=== PATIENT | male | born 1980 | race Caucasian/White ===

== ENCOUNTER 2021-03-14 12:12 | Outpatient (REF) | payer OTHER, SELFPAY ==
--- NOTE | ~2021-03-14 | XR_ITS ---
EXAMINATION: XR CHEST CLINICAL INFORMATION: Cough. COMPARISON: None TECHNIQUE: 2 views of the chest were obtained. FINDINGS: No significant abnormality is noted involving the heart, lungs, mediastinum, bony thorax or soft tissues. XR/XR chest 2V IMPRESSION: Unremarkable chest exam.
== END 2021-03-14 12:13 | disposition home or self-care (01) ==
LOC: HO.HMGCX 12:12
PROVIDERS: PCP Internal Medicine; Visit Provider Hospitalist
DX: R05 Cough (principal); Z20.822 Contact with and (suspected) exposure to COVID-19
CPT/HCPCS: 71046; U0003; U0005

== ENCOUNTER 2021-04-30 13:33 | Emergency (ER) | payer OTHER, SELFPAY ==
[2021-04-30 13:41] VITALS: BP 126/76; PULSE 104; RESP 18; TEMP 36.9; O2SAT 96; BMI 45.0
--- NOTE | 2021-04-30 14:28 | ED.GENADULT ---
HPI - General Adult General Chief complaint: General Medical Stated complaint: n/v/d Time Seen by Provider: 04/30/21 13:49 Source: patient Mode of arrival: EMS Limitations: no limitations History of Present Illness HPI narrative: 40-year-old male who was sent to emergency department from a his provider's office for evaluation near syncope, diaphoresis, diarrhea. The patient states that he had a scheduled appointment with his PCP for evaluation of left thumb numbness. He states that he sat in his car for about an hour it was very hot. While he was in the car he felt lightheaded and dizzy. He went into the office and had to use the bathroom. He states that he had diarrhea. He became very sweaty while he was moving his bowels. He states that his lightheadedness and dizziness got worse he felt he was going to pass out. The provider did do an EKG and was concerned about the patient's parents and called an ambulance. The patient was then transported to the emergency department for evaluation. The patient states that he did have breakfast but did not drink much fluid today. He does have a history of diabetes and he states that he has been exercising recently he has been more compliant with diabetic diet. The patient states that over the past 1-2 weeks he has noticed numbness of his left thumb. He denies weakness of the thumb. He denies any numbness of the other fingers of his hand. He denies any repetitive use his hand. He has no numbness of his other extremities. He denies injury. Related Data Home Medications Medication Instructions Recorded Confirmed insulin glargine 100 unit/mL (3 unit SUBCUT 03/14/21 03/14/21 mL) subcutaneous pen Previous Rx's Medication Instructions Recorded pen needle, diabetic 32 gauge x #100 ea 08/20/20 (BD Ultra-Fine Irma Pen Needle) lisinopril 40 mg tablet 40 mg PO DAILY #90 tab 10/16/20 doxycycline hyclate 100 mg tablet 100 mg PO BID #14 tab 03/14/21 prednisone 20 mg tablet 20 mg PO .COMPLEX #18 tab 03/14/21 metformin 1,000 mg tablet 1,000 mg PO BID #180 tab 03/18/21 aspirin 81 mg tablet,delayed 81 mg PO DAILY #90 tab 04/24/21 release Allergies Allergy/AdvReac Type Severity Reaction Status Date / Time No Known Allergies Allergy Verified 03/14/21 11:55 Review of Systems Review of Systems: Yes all other systems are reviewed and are negative [facility] Past Medical History [facility] Narrative: Social history: The patient smokes 3 cigarettes per day x3 years. He denies alcohol use. He denies drug use. Medical History Anxiety Depression Diabetes Hypertension Obesity Polydrug abuse PTSD (post-traumatic stress disorder) Surgical History History of appendectomy Social History Social History Advance Directives: No Advance Directives Information Provided: No Physical Exam Vital Signs: Vital Signs: Last Vital Signs Temp 98.5 F 04/30/21 13:41 Pulse 104 H 04/30/21 13:41 Resp 18 04/30/21 13:41 BP 126/76 04/30/21 13:41 Pulse Ox 96 04/30/21 13:41 Body Mass Index 45.0 Const: General: cooperative and no acute distress Orientation/consciousness: oriented to person and oriented to place Limitations: no limitations HENMT: Head: Yes normal to inspection, Yes normocephalic and Yes atraumatic Ears: external ears normal General nose exam: Normal external nose present Face and sinus: Yes normal facial exam Mouth: Normal oral and palatal mucosa present Throat: Yes posterior oropharynx normal Eyes: General: appearance normal, both eyes and all related structures Pupils: Equal, round and reactive pupils present Neck: Neck: Yes normal visual inspection, Yes no lymphadenopathy, Yes trachea midline and Yes supple Chest: Chest palpation & inspection: normal inspection of the chest and normal palpation of entire chest wall Resp: Effort & Inspection: normal respiratory effort and able to speak in complete sentences Auscultation: clear to auscultation bilaterally Cardio: Rate: regular rate Rhythm: regular rhythm Heart sounds: S1 normal heart sound present, S2 normal heart sound present and no murmurs GI: Inspection: Yes normal to inspection Palpation (GI): Soft to palpation, nontender and no guarding Auscultation: normal bowel sounds : General: Yes no CVA tenderness Back/Spine/Pelvis: Back: no CVA tenderness Skin: General skin exam: no rashes or lesions noted Neuro: General: oriented to person and oriented to place Cranial nerves: Yes CN's II-XII intact bilaterally and Yes Equal, round and reactive pupils present Cognition (Neuro): normal cognition Motor exam (neuro): 5/5 motor strength present throughout Extrem: Other: The patient does have diminished light touch and diminished sensation over the left thumb. He has normal opponents of the thumb and pinky finger with normal strength. He can make an okay sign with good strength. He has no pain with percussion over the carpal tunnel and no changes symptoms with wrist flexion x2 minutes. Psych: Appearance: grossly normal Speech and movement: Normal speech and movement present Affect: normal affect Attitude: cooperative Thought process: Normal thought process present Thought content: Normal thought content present Course Course Course Narrative: 40-year-old male who was brought emergency department by ambulance for evaluation of diaphoresis, diarrhea and near syncope. The patient's physical examination was unremarkable. The patient did have a 12 EKG done at his provider's office. On my review of this EKG the patient had a sinus tachycardia with a rate of 101, the patient has and normal intervals, no ST segment elevation, no ST segment depression, no T-wave abnormalities, no PACs or PVCs. The patient's presentation is consistent with vasovagal syncope triggered by dehydration and defecation secondary to diarrhea. Patient's point of care glucose during transport was normal. The patient's left thumb does appear to be numb with decreased sensation. This is either caused a carpal tunnel syndrome or repetitive motion syndrome. The patient was placed in a thumb spica splint. He is advised to take Tylenol and ibuprofen for discomfort. He will need to follow-up with our hand surgeon and with his PCP for further evaluation. Discharge Plan Discharge Clinical Impression: Vasovagal near syncope, Numbness and tingling of left thumb Patient Disposition: Home, Self-Care Instructions: Syncope (ED) Additional Instructions: Your symptoms of almost passing out at your providers office is consistent with vasovagal near-syncope (almost fainting). This was most likely triggered by you not eating enough food or drinking of fluid today, staying in the hot car and having an episode of diarrhea. You should increase your fluid intake throughout the day and rest. Your left some numbness is either caused by repetitive use of your thumb or carpal tunnel syndrome. Wear the thumb spica splint for 2 weeks. Hopefully, this will improve the numbness. Follow-up with our hand surgeon in 2 weeks for re-evaluation Take ibuprofen 200 mg pills, 3 pills every 6 hours as needed for pain. Take Tylenol (acetaminophen) 500 mg pills, 2 pills every 4 to 6 hours as needed for pain. Follow-up with your doctor in 2 days. Please return to the emergency department if your symptoms get worse or if you develop any symptoms that are concerning to you. Prescriptions: No Action (DME) pen needle, diabetic [BD Ultra-Fine Irma Pen Needle] 32 gauge x 5/32 needle See Rx Instructions .ROUTE .MEDSUPPLY Qty: 100 RF: 4 lisinopril 40 mg tablet 40 mg PO DAILY Qty: 90 RF: 3 metformin 1,000 mg tablet 1,000 mg PO BID Qty: 180 RF: 3 aspirin 81 mg tablet,delayed release (DR/EC) 81 mg PO DAILY Qty: 90 RF: 3 Basaglar KwikPen U-100 Insulin 100 unit/mL (3 mL) insulin pen subcut RF: 0 doxycycline hyclate 100 mg tablet 100 mg PO BID Qty: 14 RF: 0 prednisone 20 mg tablet 20 mg PO .COMPLEX Qty: 18 RF: 0 Referrals: Charlette Che MD [Physician] - 2 weeks (Left thumb numbness)
== END 2021-04-30 15:06 | disposition home or self-care (01) ==
PROVIDERS: Emergency Provider Emergency Medicine Emergency Medical Services; PCP Internal Medicine
DX: R55 Syncope and collapse (principal); R20.0 Anesthesia of skin; I10 Essential (primary) hypertension; E11.9 Type 2 diabetes mellitus without complications; Z79.899 Other long term (current) drug therapy; Z79.82 Long term (current) use of aspirin; Z79.4 Long term (current) use of insulin
CPT/HCPCS: 99283

== ENCOUNTER 2021-10-03 14:02 | Outpatient (REF) | payer OTHER, SELFPAY ==
[2021-10-03 16:36] LABS: Hematocrit 48.8 % (42.0-52.0); Hemoglobin 15.6 g/dl (14.0-18.0); Mean Corpuscular Hemoglobin 28.2 pg (27.0-33.0); Mean Corpuscular Volume 88.1 fL (80.0-98.0); Mean Platelet Volume 12.8 fL (9.4-12.4); Platelet Count 237 X10*3/uL (160-400); Red Blood Count 5.54 X10*6/uL (4.60-5.80); Red Cell Distribution Width 12.3 % (11.0-16.0); White Blood Count 10.3 X10*3/uL (4.8-10.8)
[2021-10-03 16:43] LABS: Estimated Average Glucose 292 mg/dL; Hemoglobin A1c % 11.8 %
[2021-10-03 16:56] LABS: Alanine Aminotransferase 124 U/L (0-40); Albumin Level 4.4 g/dL (3.5-5.0); Alkaline Phosphatase 74 U/L (39-117); Anion Gap 13 (12-20); Aspartate Amino Transferase 55 U/L (5-37); Bilirubin Total 0.4 mg/dL (0.0-1.0); Blood Urea Nitrogen 10 mg/dL (9-16); Calcium 9.5 mg/dL (8.4-10.2); Carbon Dioxide 30 mmol/L (22-29); Chloride 102 mmol/L (96-108); Estimated Glomerular Filt Rate > 60; Glucose Random 279 mg/dL (60-115); Potassium 4.5 mmol/L (3.3-5.1); Sodium 140 mmol/L (135-145); Total Protein 7.2 g/dL (6.5-8.0)
== END 2021-10-03 14:03 | disposition home or self-care (01) ==
LOC: HO.HMGCLDS 14:02
PROVIDERS: PCP Internal Medicine; Visit Provider Internal Medicine
DX: F41.9 Anxiety disorder, unspecified (principal); E11.9 Type 2 diabetes mellitus without complications
CPT/HCPCS: 36415; 80053; 83036; 85027

== ENCOUNTER 2022-12-08 13:54 | Outpatient (REF) | payer OTHER, SELFPAY ==
[2022-12-08 16:25] LABS: MANUAL DIFF FLAG NO
[2022-12-08 16:29] LABS: Basophils Absolute Auto 0.1 X10*3/uL (0.0-0.2); Basophils Percent Auto 0.6 % (0-2); Eosinophils Absolute Auto 0.3 X10*3/uL (0.0-0.4); Eosinophils Percent Auto 2.2 % (0-4); Hemoglobin 16.7 g/dl (14.0-18.0); Imm Gran Abs Auto 0.06 X10*3/uL (0.00-0.03); Imm Gran Pct Auto 0.5 % (0.0-0.4); Lymphocytes Absolute Auto 2.7 X10*3/uL (1.2-4.9); Lymphocytes Percent Auto 21.7 % (20-40); Mean Corpuscular HGB Conc 33.4 g/dl (31.0-36.0); Mean Corpuscular Volume 86.8 fL (80.0-98.0); Mean Platelet Volume 12.5 fL (9.4-12.4); Monocytes Absolute Auto 0.9 X10*3/uL (0.1-1.2); Monocytes Percent Auto 6.9 % (2-11); Neutrophils Absolute Auto 8.4 x10*3/uL (2.0-8.3); Neutrophils Percent Auto 68.1 % (45-73); Platelet Count 281 X10*3/uL (160-400); Red Blood Count 5.76 X10*6/uL (4.60-5.80); Red Cell Distribution Width 13.1 % (11.0-16.0); White Blood Count 12.3 X10*3/uL (4.8-10.8)
[2022-12-08 16:35] LABS: Estimated Average Glucose 131 mg/dL; Hemoglobin A1c % 6.2 %
[2022-12-08 16:53] LABS: Alanine Aminotransferase 35 U/L (0-40); Albumin Level 4.4 g/dL (3.5-5.0); Alkaline Phosphatase 69 U/L (39-117); Anion Gap 13 (12-20); Aspartate Amino Transferase 18 U/L (5-37); Bilirubin Total 0.4 mg/dL (0.0-1.0); Blood Urea Nitrogen 8 mg/dL (9-16); Calcium 9.2 mg/dL (8.4-10.2); Carbon Dioxide 29 mmol/L (22-29); Chloride 104 mmol/L (96-108); Cholesterol 194 mg/dL; Estimated Glomerular Filt Rate > 60; Glucose Fasting 131 mg/dL (60-99); HDL Cholesterol 34 mg/dL; LDL Cholesterol Calculated 95 mg/dl; Potassium 4.7 mmol/L (3.3-5.1); Sodium 141 mmol/L (135-145); Triglycerides 328 mg/dL
== END 2022-12-08 13:55 | disposition home or self-care (01) ==
LOC: HO.HMGCLDS 13:54
PROVIDERS: PCP Internal Medicine; Visit Provider Internal Medicine
DX: E11.9 Type 2 diabetes mellitus without complications (principal); I10 Essential (primary) hypertension
CPT/HCPCS: 36415; 80053; 80061; 83036; 85025

== ENCOUNTER 2023-05-08 04:06 | Emergency (ER) | payer OTHER, SELFPAY ==
[2023-05-08 04:09] VITALS: BP 198/111; PULSE 84; RESP 18; TEMP 36.6; O2SAT 99; BMI 34.4
[2023-05-08 04:35] LABS: Basophils Absolute Auto 0.1 X10*3/uL (0.0-0.2); Basophils Percent Auto 0.7 % (0-2); Eosinophils Absolute Auto 0.6 X10*3/uL (0.0-0.4); Eosinophils Percent Auto 5.7 % (0-4); Hematocrit 45.7 % (42.0-52.0); Hemoglobin 15.2 g/dl (14.0-18.0); Imm Gran Abs Auto 0.05 X10*3/uL (0.00-0.03); Imm Gran Pct Auto 0.5 % (0.0-0.4); Lymphocytes Absolute Auto 2.7 X10*3/uL (1.2-4.9); Lymphocytes Percent Auto 26.4 % (20-40); MANUAL DIFF FLAG NO; Mean Corpuscular HGB Conc 33.3 g/dl (31.0-36.0); Mean Corpuscular Hemoglobin 29.5 pg (27.0-33.0); Mean Corpuscular Volume 88.6 fL (80.0-98.0); Mean Platelet Volume 11.3 fL (9.4-12.4); Monocytes Absolute Auto 0.8 X10*3/uL (0.1-1.2); Monocytes Percent Auto 8.1 % (2-11); Neutrophils Absolute Auto 6.1 x10*3/uL (2.0-8.3); Neutrophils Percent Auto 58.6 % (45-73); Platelet Count 259 X10*3/uL (160-400); Red Blood Count 5.16 X10*6/uL (4.60-5.80); White Blood Count 10.4 X10*3/uL (4.8-10.8)
[2023-05-08 04:50] LABS: Alanine Aminotransferase 17 U/L (0-40); Albumin Level 4.2 g/dL (3.5-5.0); Alkaline Phosphatase 60 U/L (39-117); Anion Gap 14 (12-20); Aspartate Amino Transferase 15 U/L (5-37); Bilirubin Total 0.5 mg/dL (0.0-1.0); Blood Urea Nitrogen 12 mg/dL (9-16); Carbon Dioxide 27 mmol/L (22-29); Chloride 106 mmol/L (96-108); Creatinine Clr Calc Pharmacy 138.3; Estimated Glomerular Filt Rate > 60; Glucose Random 114 mg/dL (60-115); Potassium 4.1 mmol/L (3.3-5.1); Sodium 143 mmol/L (135-145); Total Protein 7.1 g/dL (6.5-8.0)
[2023-05-08 04:51] LABS: Appearance Urine Clear; Color Urine Yellow; Glucose Urine UA Negative (Negative); Leukocyte Esterase Urine Negative (Negative); Nitrite Urine Negative (Negative); Specific Gravity - Urine 1.025 (1.005-1.025); Urine Blood Negative (Negative); Urine Ketones Trace mg/dL (Negative); Urine Protein Trace mg/dL (Neg-Trace)
--- NOTE | 2023-05-08 04:52 | ED_ITS ---
HPI - Psych General Chief Complaint: Psychiatric Symptoms Stated Complaint: Psych eval Time Seen by Provider: 05/08/23 04:50 Source: patient Mode of arrival: EMS Limitations: no limitations History of Present Illness HPI Narrative: Patient has history of PTSD depression diabetes anxiety hypertension been homeless for last few days under lot of stress says that his medication was lost not able to take medication for last few days. Denies any SI or HI asking for his medication to be refilled history of cocaine and marijuana use Related Data Home Medications Medication Instructions Recorded Confirmed aspirin 81 mg tablet,delayed 81 mg PO DAILY 05/08/23 05/08/23 release fluticasone propionate 110 1 puff inhalation BID 05/08/23 05/08/23 mcg/actuation HFA aerosol inhaler (Flovent HFA) gabapentin 100 mg capsule 100 mg PO BID 05/08/23 05/08/23 insulin glargine 100 unit/mL (3 10 unit subcut DAILY 05/08/23 05/08/23 mL) subcutaneous pen (Lantus Solostar U-100 Insulin) lisinopril 40 mg tablet 40 mg PO DAILY 05/08/23 05/08/23 metformin 1,000 mg tablet 1,000 mg PO BID 05/08/23 05/08/23 venlafaxine 75 mg capsule,extended 75 mg PO QPM 05/08/23 05/08/23 release 24 hr Previous Rx's Medication Instructions Recorded albuterol sulfate 90 mcg/actuation 2 puff inhalation Q6H PRN 12/08/22 aerosol inhaler shortness of breath or wheezing #8.5 grams amlodipine 5 mg tablet 5 mg PO DAILY #30 tabs 05/08/23 aspirin 81 mg tablet,delayed 81 mg PO DAILY #30 tabs 05/08/23 release cephalexin 500 mg capsule 500 mg PO QID 10 days #40 caps 05/08/23 doxycycline hyclate 100 mg tablet 100 mg PO BID #20 tabs 05/08/23 gabapentin 300 mg capsule 300 mg PO BID #60 caps 05/08/23 lisinopril 40 mg tablet 40 mg PO DAILY #30 tabs 05/08/23 metformin 1,000 mg tablet 1,000 mg PO BID #60 tabs 05/08/23 venlafaxine 75 mg capsule,extended 75 mg PO QPM #30 caps 05/08/23 release 24 hr Allergies Allergy/AdvReac Type Severity Reaction Status Date / Time No Known Allergies Allergy Verified 12/08/22 13:27 Review of Systems Review of Systems: Yes all other systems are reviewed and are negative [facility] Past Medical History Medical History Anxiety Depression Diabetes Eczema Hypertension Obesity Polydrug abuse PTSD (post-traumatic stress disorder) Surgical History History of appendectomy Family History Family History Father Hypertension Mother No problems noted. Social History Social History Housing: Homeless Patient Tobacco Use Status: Current someday Tobacco user Cigarettes Per Day: 2 e-Cigarette/Vaping Use: Never Used Advance Directives: No Advance Directives Information Provided: No Current occupational status: unemployed Cognitive needs: No Hearing needs: No Vision needs: No Physical Exam Vital Signs: Vital Signs: Last Vital Signs Temp 97.8 F 05/08/23 05:14 Pulse 71 05/08/23 05:14 Resp 18 05/08/23 05:14 BP 147/96 H 05/08/23 05:14 Pulse Ox 97 05/08/23 05:14 O2 Del Method Room Air 05/08/23 05:14 BMI result Body Mass Index 34.4 Appearance: Alert. Oriented X3. No acute distress. And she Eyes: PERRLA, No Nystagmus ENT: Pharynx normal. Oral Mucosa moist superficial abscess of the forehead Neck: Normal inspection. Neck supple. CVS: Normal heart rate and rhythm. Pulses normal. Respiratory: No respiratory distress. Equal air entry bilateral, no w heezing/rales/rhonchi Abdomen: Soft and nontender. Bowel sounds are present, no mass palpable, no CVA tenderness Skin: Skin warm and dry. Normal skin color. Normal skin turgor. Extremities: No lower extremity edema. No calf tenderness Neuro: Oriented X 3. No motor deficit. No sensory deficit.No cerebellar signs , cranial nerves II-XII intact Medical Decision Making Lab Data MDM Lab Attestation statement: I reviewed the patient's lab results. 05/08/23 04:29 05/08/23 04:29 Labs: Lab Results 05/08/23 05/08/23 05/08/23 Range/Units 04:29 04:29 04:29 WBC 10.4 (4.8-10.8) X10*3/uL RBC 5.16 (4.60-5.80) X10*6/uL Hgb 15.2 (14.0-18.0) g/dl Hct 45.7 (42.0-52.0) % MCV 88.6 (80.0-98.0) fL MCH 29.5 (27.0-33.0) pg MCHC 33.3 (31.0-36.0) g/dl RDW 13.0 (11.0-16.0) % Plt Count 259 (160-400) X10*3/uL MPV 11.3 (9.4-12.4) fL Immature Gran % (Auto) 0.5 H (0.0-0.4) % Neut % (Auto) 58.6 (45-73) % Lymph % (Auto) 26.4 (20-40) % [place] % (Auto) 8.1 (2-11) % Eos % (Auto) 5.7 H (0-4) % Baso % (Auto) 0.7 (0-2) % Lymph # (Auto) 2.7 (1.2-4.9) X10*3/uL [place] # (Auto) 0.8 (0.1-1.2) X10*3/uL Eos # (Auto) 0.6 H (0.0-0.4) X10*3/uL Baso # (Auto) 0.1 (0.0-0.2) X10*3/uL Abs Immat Gran (auto) 0.05 H (0.00-0.03) X10*3/uL Absolute Neuts (auto) 6.1 (2.0-8.3) x10*3/uL Absolute Nucleated RBC 0.000 (0.0-0.012) X10*3/uL Nucleated RBC % (auto) 0.0 (0.0-0.2) /100WBC Sodium 143 (135-145) mmol/L Potassium 4.1 (3.3-5.1) mmol/L Chloride 106 (96-108) mmol/L Carbon Dioxide 27 (22-29) mmol/L Anion Gap 14 (12-20) BUN 12 (9-16) mg/dL Creatinine 0.99 (0.5-1.4) mg/dL Estim Creat Clear Calc 138.3 Estimated GFR > 60 Random Glucose 114 (60-115) mg/dL Calcium 9.0 (8.4-10.2) mg/dL Total Bilirubin 0.5 (0.0-1.0) mg/dL AST 15 (5-37) U/L ALT 17 (0-40) U/L Alkaline Phosphatase 60 (39-117) U/L Total Protein 7.1 (6.5-8.0) g/dL Albumin 4.2 (3.5-5.0) g/dL Urine Color Urine Appearance Urine pH (5.0-9.0) Ur Specific [place] (1.005-1.025) Urine Protein (Neg-Trace) mg/dL Urine Glucose (UA) (Negative) mg/dL Urine Ketones (Negative) mg/dL Urine Blood (Negative) Urine Nitrite (Negative) Ur Leukocyte Esterase (Negative) Salicylates (15-30) mg/dL Urine Opiates Screen (Not Detect) Urine Fentanyl Screen (Not Detect) Acetaminophen (<30) mcg/mL Ur Barbiturates Screen (Not Detect) Ur Phencyclidine Scrn (Not Detect) Ur Amphetamines Screen (Not Detect) U Benzodiazepines Scrn (Not Detect) Urine Cocaine Screen (Not Detect) U Marijuana (THC) Screen (Not Detect) Ethyl Alcohol < 10 mg/dL 05/08/23 05/08/23 05/08/23 Range/Units 04:29 04:44 04:44 WBC (4.8-10.8) X10*3/uL RBC (4.60-5.80) X10*6/uL Hgb (14.0-18.0) g/dl Hct (42.0-52.0) % MCV (80.0-98.0) fL MCH (27.0-33.0) pg MCHC (31.0-36.0) g/dl RDW (11.0-16.0) % Plt Count (160-400) X10*3/uL MPV (9.4-12.4) fL Immature Gran % (Auto) (0.0-0.4) % Neut % (Auto) (45-73) % Lymph % (Auto) (20-40) % [place] % (Auto) (2-11) % Eos % (Auto) (0-4) % Baso % (Auto) (0-2) % Lymph # (Auto) (1.2-4.9) X10*3/uL [place] # (Auto) (0.1-1.2) X10*3/uL Eos # (Auto) (0.0-0.4) X10*3/uL Baso # (Auto) (0.0-0.2) X10*3/uL Abs Immat Gran (auto) (0.00-0.03) X10*3/uL Absolute Neuts (auto) (2.0-8.3) x10*3/uL Absolute Nucleated RBC (0.0-0.012) X10*3/uL Nucleated RBC % (auto) (0.0-0.2) /100WBC Sodium (135-145) mmol/L Potassium (3.3-5.1) mmol/L Chloride (96-108) mmol/L Carbon Dioxide (22-29) mmol/L Anion Gap (12-20) BUN (9-16) mg/dL Creatinine (0.5-1.4) mg/dL Estim Creat Clear Calc Estimated GFR Random Glucose (60-115) mg/dL Calcium (8.4-10.2) mg/dL Total Bilirubin (0.0-1.0) mg/dL AST (5-37) U/L ALT (0-40) U/L Alkaline Phosphatase (39-117) U/L Total Protein (6.5-8.0) g/dL Albumin (3.5-5.0) g/dL Urine Color Yellow Urine Appearance Clear Urine pH 6.0 (5.0-9.0) Ur Specific [place] 1.025 (1.005-1.025) Urine Protein Trace (Neg-Trace) mg/dL Urine Glucose (UA) Negative (Negative) mg/dL Urine Ketones Trace (Negative) mg/dL Urine Blood Negative (Negative) Urine Nitrite Negative (Negative) Ur Leukocyte Esterase Negative (Negative) Salicylates < 5.0 L (15-30) mg/dL Urine Opiates Screen Not Detected (Not Detect) Urine Fentanyl Screen Not Detected (Not Detect) Acetaminophen < 17 (<30) mcg/mL Ur Barbiturates Screen Not Detected (Not Detect) Ur Phencyclidine Scrn Not Detected (Not Detect) Ur Amphetamines Screen Not Detected (Not Detect) U Benzodiazepines Scrn Not Detected (Not Detect) Urine Cocaine Screen POSITIVE H (Not Detect) U Marijuana (THC) Screen POSITIVE H (Not Detect) Ethyl Alcohol mg/dL Discharge Plan Discharge Clinical Impression: Chronic posttraumatic stress disorder, Anxiety, Folliculitis Patient Disposition: Home, Self-Care Instructions: Post Traumatic Stress Disorder (ED), Folliculitis (ED), Anxiety (ED) Additional Instructions: Take your medications as prescribed and follow-up with therapist and PCP Prescriptions: New lisinopril 40 mg tablet 40 mg PO DAILY Qty: 30 0RF amlodipine 5 mg tablet 5 mg PO DAILY Qty: 30 0RF metformin 1,000 mg tablet 1,000 mg PO BID Qty: 60 0RF venlafaxine 75 mg capsule,extended release 24hr 75 mg PO QPM Qty: 30 0RF gabapentin 300 mg capsule 300 mg PO BID Qty: 60 0RF aspirin 81 mg tablet,delayed release (DR/EC) 81 mg PO DAILY Qty: 30 0RF cephalexin 500 mg capsule 500 mg PO QID 10 Days Qty: 40 0RF doxycycline hyclate 100 mg tablet 100 mg PO BID Qty: 20 0RF No Action aspirin 81 mg tablet,delayed release (DR/EC) 81 mg PO DAILY metformin 1,000 mg tablet 1,000 mg PO BID gabapentin 100 mg capsule 100 mg PO BID lisinopril 40 mg tablet 40 mg PO DAILY fluticasone propionate [Flovent HFA] 110 mcg/actuation HFA aerosol inhaler 1 puff inhalation BID venlafaxine 75 mg capsule,extended release 24hr 75 mg PO QPM insulin glargine [Lantus Solostar U-100 Insulin] 100 unit/mL (3 mL) insulin pen 10 unit subcut DAILY albuterol sulfate 90 mcg/actuation HFA aerosol inhaler 2 puff inhalation Q6H PRN (Reason: shortness of breath or wheezing) Qty: 8.5 0RF Interventions: Summers-Suicide Risk Severity Scale Last Done: 05/08/23 05:57
[2023-05-08 05:00] LABS: Amphetamine Screen Urine Not Detected (Not Detect); Barbiturates, Urine Not Detected (Not Detect); Benzodiazepines Screen Urine Not Detected (Not Detect); Cannabinoid Screen Urine POSITIVE (Not Detect); Cocaine Screen Urine POSITIVE (Not Detect); Fentanyl, urine Not Detected (Not Detect); Opiate Screen Urine Not Detected (Not Detect); Phencyclidine Screen Urine Not Detected (Not Detect)
[2023-05-08 05:09] LABS: Acetaminophen LAB < 17 mcg/mL (<30); Ethanol < 10 mg/dL; Salicylate < 5.0 mg/dL (15-30)
[2023-05-08 05:14] VITALS: BP 147/96; PULSE 71; RESP 18; TEMP 36.6; O2SAT 97
--- OUTSIDE RECORDS SUMMARY | 2023-05-08 05:30 | XMS_ITS | Continuity of Care Document ---
Author Name Unknown Organization [facility] ter Address [address] [place] [id number]- Care Team Providers Care [employer] Teacher Name Role Phone Tory Vaughan MD Primary Care Physician Encounter [facility] [place] Date(s): 03/23/23 - 03/23/[address] [address]- Discharge Disposition: A-D/C Walkout Attending Physician: Not on Staff, Attending MD Admitting Physician: Not on Staff, Admitting MD Referring Physician: Not on Staff, Referring MD Allergies, Adverse Reactions, Alerts No Known Allergies Problem List Condition Confirmation Course Effective Dates Status Health St atus Informant Obese class I Confirmed Active Vital Signs Most recent to oldest [Reference Range]: 1 2 Height 190 cm (03/23/23 9:36 AM) 190 cm (03/23/23 9:16 AM) Weight 126 kg (03/23/23 9:36 AM) 126 kg (03/23/23 9:16 AM) Oxygen Saturation [94-100 %] 98 % (03/23/23 9:16 AM) 99 % (03/23/23 9:10 AM) Pulse Rate [55-90 bpm] 79 bpm (03/23/23 9:16 AM) 87 bpm (03/23/23 9:10 AM) Body Mass Index [18.5-24.99 kg/m2] 34.9 kg/m2 *>HHI* (03/23/23 9:16 AM) Blood Pressure [90-138/55-84 mm Hg] 164/ 98mm Hg *H* (03/23/23 9:16 AM) Respiratory Rate [16-30 br/min] 18 br/mi n (03/23/23 9:16 AM) Temperature [96.8-100.4 DegF] 97.9 DegF (03/23/23 9:16 AM) Mode of Delivery (Oxygen) Room air (03/23/23 9:16 AM) Room air (03/23/23 9:10 AM) Blood pressure sites Arm, right (03/23/23 9:16 AM) Temperature Route Oral (03/23/23 9:16 AM) Dry Weight 126 kg (03/23/23 9:36 AM) 126 kg (03/23/23 9:16 AM) Weight Obtained Via Patient/family state d (03/23/23 9:16 AM) Dry Weight Obtained Via Patient/family s tated (03/23/23 9:16 AM) Patient Care team information Care Team Personnel Name: Tory Vaughan MD Position: S Physician - Primary Care Member Role: PCP Address: Address: [address] [facility] [place] [address]- Care Team Related Persons Name: SUJIT REID Address: home [address] [place] [address]
--- OUTSIDE RECORDS SUMMARY | 2023-05-08 05:30 | XMS_ITS | Continuity of Care Document ---
Author Name Unknown Organization [facility] Address [address] [place] [id number]- Care Team Providers Care Tile Molder Hand Name Role Phone Tory Vaughan MD Primary Care Physician [phone] Encounter [facility] [place] Date(s): 12/15/22 - 01/14/23 [facility] [address] [place] [id number]- Attending Physician: Admtr, Ar8 Admitting Physician: Admtr, Ar8 Referring Physician: Admtr, Ar8 Allergies, Adverse Reactions, Alerts No Known Allergies Patient Care team information Care Team Personnel Name: Tory Vaughan MD Position: [facility] Physician (General Medicine) Member Role: PCP Address: Address: [address] [facility] [place] [address]- Care Team Related Persons Name: SUJIT REID Address: [address] [place] [address]
--- OUTSIDE RECORDS SUMMARY | 2023-05-08 05:30 | XMS_ITS | Continuity of Care Document ---
Author Name Unknown Organization [facility] Address [address] [place] [id number]- Care Team Providers Care Transfer Specialist Name Role Phone Tory Vaughan MD Primary Care Physician Encounter [facility] [place] [facility] R [id number] Date(s): 12/09/22 - 01/14/23 [facility] [address] [place] [id number] Attending Physician: Destiny Guerrero MD Admitting Physician: Destiny Guerrero MD Referring Physician: Tory Vaughan MD Allergies, Adverse Reactions, Alerts No Known Allergies Patient Care team information Care Team Personnel Name: Tory Vaughan MD Position: [facility] Physician (General Medicine) Member Role: PCP Address: Address: [address] [facility] [place] [address]- Care Team Related Persons Name: SUJIT REID Address: home [address] [place] [address]
[2023-05-08] MEDS: amLODIPine Besylate 5 MG TABLET PO (06:01)
[2023-05-08] MEDS: cephALEXin 500 MG CAPSULE PO (06:01)
[2023-05-08] MEDS: Doxycycline Monohydrate 100 MG CAPSULE PO (06:01)
== END 2023-05-08 06:10 | disposition home or self-care (01) ==
PROVIDERS: Emergency Provider Internal Medicine; PCP Internal Medicine
DX: F43.12 Post-traumatic stress disorder, chronic (principal); F41.9 Anxiety disorder, unspecified; L73.9 Follicular disorder, unspecified; F32.A Depression, unspecified; E11.9 Type 2 diabetes mellitus without complications; I10 Essential (primary) hypertension; F17.210 Nicotine dependence, cigarettes, uncomplicated; F19.10 Other psychoactive substance abuse, uncomplicated; E66.9 Obesity, unspecified; Z68.34 Body mass index [BMI] 34.0-34.9, adult; Z59.00 Homelessness unspecified; Z79.82 Long term (current) use of aspirin; Z79.84 Long term (current) use of oral hypoglycemic drugs; Z79.4 Long term (current) use of insulin
CPT/HCPCS: 36415; 80053; 80143; 80179; 80307; 81003; 85025; 99284

== ENCOUNTER 2023-10-22 08:20 | Emergency (ER) | payer OTHER, SELFPAY ==
--- NOTE | 2023-10-22 | ECG_ITS ---
Test Reason : dyspnea Blood Pressure : / mmHG Vent. Rate : 087 BPM Atrial Rate : 087 BPM P-R Int : 152 ms QRS Dur : 080 ms QT Int : 370 ms P-R-T Axes : 059 044 049 degrees QTc Int : 445 ms Normal sinus rhythm Normal ECG No previous ECGs available Referred By: Generic ED Physician Electronically Signed By:Malik Toth
--- NOTE | ~2023-10-22 | XR_ITS ---
EXAMINATION: XR CHEST CLINICAL INFORMATION: Dyspnea and fever. COMPARISON: 03/14/2021 TECHNIQUE: 2 views of the chest were obtained. FINDINGS: The lungs are well expanded. No focal consolidation. No pleural effusion. Cardiac silhouette is unchanged. XR/XR chest 2V IMPRESSION: No acute abnormality.
[2023-10-22 08:21] VITALS: BP 152/110; PULSE 92; RESP 18; TEMP 37.2; O2SAT 98; BMI 33.0
--- NOTE | 2023-10-22 08:39 | ED.GENADULT ---
HPI - General Adult General Chief complaint: General Medical Stated complaint: diff breathing vomiting Time Seen by Provider: 10/22/23 08:39 History of Present Illness HPI narrative: The patient is a 42-year-old male with a history of type 2 diabetes who says that he is felt short of breath for the last 4-5 days. He also thinks he has had some fevers. He thinks he had a temperature of 101 degrees yesterday. He went to an urgent care yesterday where he described his symptoms. He says he tested negative for viruses and was advised to come to the emergency room. He said he did not want to come to the hospital yesterday but came to the hospital this morning instead. He has also had headaches. He has had some chest discomfort that feels like he has a clamp on his chest. Related Data Home Medications Medication Instructions Recorded Confirmed venlafaxine 75 mg capsule,extended 75 mg PO QPM 05/08/23 05/08/23 release 24 hr Previous Rx's Medication Instructions Recorded albuterol sulfate 90 mcg/actuation 2 puff inhalation Q6H PRN 12/08/22 aerosol inhaler shortness of breath or wheezing #8.5 grams gabapentin 300 mg capsule 300 mg PO BID #60 caps 05/08/23 metformin 1,000 mg tablet 1,000 mg PO BID #60 tabs 05/08/23 aspirin 81 mg tablet,delayed 81 mg PO DAILY #90 tabs 08/03/23 release lisinopril 40 mg tablet 40 mg PO DAILY #90 tabs 08/03/23 Allergies Allergy/AdvReac Type Severity Reaction Status Date / Time amoxicillin AdvReac Unknown Verified 10/22/23 08:25 Review of Systems Review of Systems: Yes all other systems are reviewed and are negative FORMERLY [facility], [facility] Past Medical History Medical History Anxiety Depression Diabetes Eczema Hypertension Obesity Polydrug abuse PTSD (post-traumatic stress disorder) Surgical History History of appendectomy Family History Family History Father Hypertension Mother No problems noted. Social History Social History Housing: Homeless Patient Tobacco Use Status: Current someday Tobacco user Cigarettes Per Day: 2 Smoked in Last 30 Days: Yes e-Cigarette/Vaping Use: Never Used Use of substances other than those prescribed or required for medical reasons: No Advance Directives: No Current occupational status: unemployed Cognitive needs: No Hearing needs: No Vision needs: No Physical Exam ED Vital Signs: Vital Signs - 24 hr 10/22/23 08:21 10/22/23 09:08 Temperature 98.9 F 97.4 F Pulse Rate 92 76 Respiratory Rate 18 12 Blood Pressure 152/110 H 147/85 H Pulse Oximetry 98 96 Oxygen Delivery Method Room Air Room Air BMI result Body Mass Index 33.0 Const Other: The patient is awake and alert. He is mildly disheveled. He is pleasant and cooperative. He does not appear in distress. HENMT Other: Face is symmetrical. The pharynx is normal. Mucous membranes are moist. No intraoral swelling. Eyes Other: Pupils are round equal, conjunctivae are clear, extraocular movements intact.Pupils are round equal, Neck Other: No cervical adenopathy. No JVD. No neck tenderness or swelling. Resp Effort & Inspection: normal respiratory effort Auscultation: clear to auscultation bilaterally Cardio Rate: regular rate Rhythm: regular rhythm Heart sounds: S1 normal heart sound present and S2 normal heart sound present GI Other: Abdomen is soft and nontender Skin Other: Skin is dry and unremarkable. Neuro Other: The patient is awake and alert. He is oriented and appropriate. Speech is clear. Face is symmetrical. Moving extremities normally. Grossly neurologically intact. Extrem Other: No peripheral edema. No calf swelling or tenderness. No calf asymmetry. Medical Decision Making Medical Decision Making [facility] Narrative: The patient is a 42-year-old male who presented complaining of several days of shortness of breath. He reports history of type 2 diabetes for which he takes metformin. He also reports having had a fever yesterday of 101. The patient's evaluation in the emergency room today is fairly unremarkable. He was mildly hypertensive but his vital signs were otherwise unremarkable. His EKG was normal. He has not tachycardic or hypoxic. Labs including a CBC, C-reactive protein, and troponin are unremarkable. The patient left the emergency department before I had a chance to review any of his investigations with him or to make any other decisions about disposition. Apparently he had some appointment he had to keep and could not stay. On the basis of his essentially negative workup I do not think he needs to be called back for any further evaluation. Lab Data 10/22/23 08:34 10/22/23 08:34 Labs: Lab Results 10/22/23 10/22/23 Range/Units 08:34 09:47 WBC 11.0 H (4.8-10.8) X10*3/uL RBC 5.43 (4.60-5.80) X10*6/uL Hgb 16.1 (14.0-18.0) g/dl Hct 47.8 (42.0-52.0) % MCV 88.0 (80.0-98.0) fL MCH 29.7 (27.0-33.0) pg MCHC 33.7 (31.0-36.0) g/dl RDW 12.5 (11.0-16.0) % Plt Count 234 (160-400) X10*3/uL MPV 11.6 (9.4-12.4) fL Immature Gran % (Auto) 0.6 H (0.0-0.4) % Neut % (Auto) 67.4 (45-73) % Lymph % (Auto) 21.4 (20-40) % [place] % (Auto) 7.3 (2-11) % Eos % (Auto) 2.7 (0-4) % Baso % (Auto) 0.6 (0-2) % Lymph # (Auto) 2.4 (1.2-4.9) X10*3/uL [place] # (Auto) 0.8 (0.1-1.2) X10*3/uL Eos # (Auto) 0.3 (0.0-0.4) X10*3/uL Baso # (Auto) 0.1 (0.0-0.2) X10*3/uL Abs Immat Gran (auto) 0.07 H (0.00-0.03) X10*3/uL Absolute Neuts (auto) 7.4 (2.0-8.3) x10*3/uL Absolute Nucleated RBC 0.000 (0.0-0.012) X10*3/uL Nucleated RBC % (auto) 0.0 (0.0-0.2) /100WBC Sodium 142 (135-145) mmol/L Potassium 3.9 (3.3-5.1) mmol/L Chloride 107 (96-108) mmol/L Carbon Dioxide 26 (22-29) mmol/L Anion Gap 13 (12-20) BUN 17 H (9-16) mg/dL Creatinine 0.83 (0.5-1.4) mg/dL Estim Creat Clear Calc 161.6 Estimated GFR > 60 Random Glucose 127 H (60-115) mg/dL Calcium 8.7 (8.4-10.2) mg/dL Magnesium 2.3 (1.6-2.6) mg/dL Total Bilirubin 0.3 (0.0-1.0) mg/dL Direct Bilirubin 0.1 (0.0-0.5) mg/dL AST 18 (5-37) U/L ALT 22 (0-40) U/L Alkaline Phosphatase 57 (39-117) U/L Troponin I High Sens 6.0 (<3.5-35.0) ng/L C-Reactive Protein 0.11 (< or = 0.50) mg/dL Total Protein 6.9 (6.5-8.0) g/dL Albumin 4.0 (3.5-5.0) g/dL Urine Color Yellow Urine Appearance Clear Urine pH 6.0 (5.0-9.0) Ur Specific [place] 1.025 (1.005-1.025) Urine Protein Negative (Neg-Trace) mg/dL Urine Glucose (UA) Negative (Negative) mg/dL Urine Ketones Negative (Negative) mg/dL Urine Blood Negative (Negative) Urine Nitrite Negative (Negative) Ur Leukocyte Esterase Trace H (Negative) Urine RBC 0-2 (0-2) /HPF Urine WBC 0-5 (0-5) /HPF Ur Squamous Epith Cells 0-2 (0-2) /HPF Urine Bacteria None Seen (None Seen) Hyaline Casts 0-2 (0-2) /LPF COVID-19 (FREDERICK) Negative (Negative) COVID-19 Clin Com See Note Influenza Type A (MENA) Negative (Negative) Influenza Type B (MENA) Negative (Negative) Influenza A & B Note See Note Independent Interpretation I performed an independent interpretation of an: EKG Interpretation: EKG at 08:28 shows normal sinus rhythm at 87 beats per minute. It is a normal EKG. Discharge Plan Discharge Clinical Impression: Shortness of breath Patient Disposition: Elopement Prescriptions: No Action aspirin 81 mg tablet,delayed release (DR/EC) 81 mg PO DAILY Qty: 90 1RF lisinopril 40 mg tablet 40 mg PO DAILY Qty: 90 1RF venlafaxine 75 mg capsule,extended release 24hr 75 mg PO QPM metformin 1,000 mg tablet 1,000 mg PO BID Qty: 60 0RF gabapentin 300 mg capsule 300 mg PO BID Qty: 60 0RF albuterol sulfate 90 mcg/actuation HFA aerosol inhaler 2 puff inhalation Q6H PRN (Reason: shortness of breath or wheezing) Qty: 8.5 0RF
[2023-10-22 08:41] LABS: MANUAL DIFF FLAG NO
[2023-10-22 08:48] LABS: Basophils Absolute Auto 0.1 X10*3/uL (0.0-0.2); Basophils Percent Auto 0.6 % (0-2); Eosinophils Absolute Auto 0.3 X10*3/uL (0.0-0.4); Eosinophils Percent Auto 2.7 % (0-4); Hematocrit 47.8 % (42.0-52.0); Hemoglobin 16.1 g/dl (14.0-18.0); Imm Gran Abs Auto 0.07 X10*3/uL (0.00-0.03); Imm Gran Pct Auto 0.6 % (0.0-0.4); Lymphocytes Absolute Auto 2.4 X10*3/uL (1.2-4.9); Lymphocytes Percent Auto 21.4 % (20-40); Mean Corpuscular HGB Conc 33.7 g/dl (31.0-36.0); Mean Corpuscular Hemoglobin 29.7 pg (27.0-33.0); Mean Platelet Volume 11.6 fL (9.4-12.4); Monocytes Absolute Auto 0.8 X10*3/uL (0.1-1.2); Monocytes Percent Auto 7.3 % (2-11); Neutrophils Absolute Auto 7.4 x10*3/uL (2.0-8.3); Neutrophils Percent Auto 67.4 % (45-73); Platelet Count 234 X10*3/uL (160-400); Red Blood Count 5.43 X10*6/uL (4.60-5.80); Red Cell Distribution Width 12.5 % (11.0-16.0)
[2023-10-22 08:56] LABS: Alanine Aminotransferase 22 U/L (0-40); Alkaline Phosphatase 57 U/L (39-117); Anion Gap 13 (12-20); Aspartate Amino Transferase 18 U/L (5-37); Bilirubin Direct 0.1 mg/dL (0.0-0.5); Bilirubin Total 0.3 mg/dL (0.0-1.0); Blood Urea Nitrogen 17 mg/dL (9-16); Calcium 8.7 mg/dL (8.4-10.2); Carbon Dioxide 26 mmol/L (22-29); Chloride 107 mmol/L (96-108); Creatinine Clr Calc Pharmacy 161.6; Estimated Glomerular Filt Rate > 60; Glucose Random 127 mg/dL (60-115); Magnesium 2.3 mg/dL (1.6-2.6); Potassium 3.9 mmol/L (3.3-5.1); Sodium 142 mmol/L (135-145); Total Protein 6.9 g/dL (6.5-8.0)
[2023-10-22 09:06] LABS: IDNOW Serial# 152EDE1D; Influenza A Negative (Negative); Influenza B2 Negative (Negative)
[2023-10-22 09:07] LABS: COVID-19 Test Negative (Negative); IDNOW Serial# 58CA691E
[2023-10-22 09:08] VITALS: BP 147/85; PULSE 76; RESP 12; TEMP 36.3; O2SAT 96
[2023-10-22 09:31] LABS: C Reactive Protein 0.11 mg/dL (< or = 0.50)
[2023-10-22 09:56] LABS: Appearance Urine Clear; Color Urine Yellow; Glucose Urine UA Negative (Negative); Leukocyte Esterase Urine Trace (Negative); Nitrite Urine Negative (Negative); Specific Gravity - Urine 1.025 (1.005-1.025); UMIC TRIGGER UACC YES; Urine Blood Negative (Negative); Urine Ketones Negative (Negative); Urine Protein Negative (Neg-Trace)
[2023-10-22 10:03] LABS: Bacteria Urine None Seen (None Seen); Hyaline Casts Urine 0-2 /LPF (0-2); RBC Urine 0-2 /HPF (0-2); Squamous Epithelial Cell Urine 0-2 /HPF (0-2); WBC Urine 0-5 /HPF (0-5)
--- NOTE | 2023-10-22 10:20 | PC.NURSE ---
PT IS A/O X 4 NO SOB/MARIA DE JESUS NOTED SPEAKS IN FULL SENTENCES. PT STATES THAT HE HAS AND EMERGENCY AT HOME. HE NEEDS TO TAKE HIS FATHER TO THE ER BECAUSE HE IS NOT FEELING WELL. PT WAS SEEN BY PROVIDER EARLIER AND LABS/IMAGINING DONE. PT IS LUCID. PT WAS EDUCATED ON RISK OF LEAVING BEFORE COMPLETING HIS CARE/ASSESSMENT/EVAL/RESULTS. PT WAS ADVISED TO RETURN AT ANYTIME IF HE IS NOT FEELING/ANY BETTER OR IF HE HAS ANY NEW CONCERNS.
== END 2023-10-22 10:25 | disposition left against medical advice (07) ==
PROVIDERS: Emergency Provider Emergency Medicine
DX: R06.02 Shortness of breath (principal); R07.89 Other chest pain; R50.9 Fever, unspecified; R51.9 Headache, unspecified; F17.200 Nicotine dependence, unspecified, uncomplicated; Z11.52 Encounter for screening for COVID-19; Z79.899 Other long term (current) drug therapy
CPT/HCPCS: 71046; 80053; 81001; 82248; 83735; 84484; 85025; 86140; 87502; 87635; 93005; 99283; 99284

== ENCOUNTER → 2023-10-22 08:28 | Outpatient (BNV) | payer OTHER, SELFPAY | PROVIDERS: Emergency Provider Emergency Medicine; Visit Provider Internal Medicine Cardiovascular Disease | DX: R06.00 Dyspnea, unspecified (principal); R11.10 Vomiting, unspecified | CPT/HCPCS: 93010 ==

== ENCOUNTER 2023-10-30 18:56 | Emergency (ER) | payer OTHER, SELFPAY ==
[2023-10-30 19:12] VITALS: BMI 31.2
--- NOTE | 2023-10-30 19:15 | PC.NURSE ---
[facility] reporting abdominal pain, pt arrived to ED jumped off stretcher, getting in staff faces, angry, agitated stating why am i here you can't keep me here in room assessing pt, pt denying SI/HI, denies abdominal pain, refusing treatment, leaving ED at the OK of MD Alejo. Pt ambulatory with a steady gait. Pt refusing vital signs and further treatment.
--- NOTE | 2023-10-30 19:19 | ED_ITS ---
HPI - Nausea/Vomiting/Diarrhea General Chief complaint: Abdominal Pain Stated complaint: not feeling well, paranoid, aggression. Body numb Time Seen by Provider: 10/30/23 19:08 Related Data Home Medications Medication Instructions Recorded Confirmed venlafaxine 75 mg capsule,extended 75 mg PO QPM 05/08/23 05/08/23 release 24 hr Previous Rx's Medication Instructions Recorded albuterol sulfate 90 mcg/actuation 2 puff inhalation Q6H PRN 12/08/22 aerosol inhaler shortness of breath or wheezing #8.5 grams gabapentin 300 mg capsule 300 mg PO BID #60 caps 05/08/23 metformin 1,000 mg tablet 1,000 mg PO BID #60 tabs 05/08/23 aspirin 81 mg tablet,delayed 81 mg PO DAILY #90 tabs 08/03/23 release lisinopril 40 mg tablet 40 mg PO DAILY #90 tabs 08/03/23 Allergies Allergy/AdvReac Type Severity Reaction Status Date / Time amoxicillin AdvReac Unknown Verified 10/22/23 08:25 [facility] Past Medical History Medical History Anxiety Depression Diabetes Eczema Hypertension Obesity Polydrug abuse PTSD (post-traumatic stress disorder) Surgical History History of appendectomy Family History Family History Father Hypertension Mother No problems noted. Social History Social History Housing: Homeless Patient Tobacco Use Status: Current someday Tobacco user Cigarettes Per Day: 2 e-Cigarette/Vaping Use: Never Used Current occupational status: unemployed Cognitive needs: No Hearing needs: No Vision needs: No Physical Exam Vital Signs: Vital Signs: BMI result Body Mass Index 31.2 Discharge Plan Discharge Clinical Impression: Vomiting Patient Disposition: Home, Self-Care Instructions: Acute Nausea and Vomiting (ED) Additional Instructions: You told me that you are not suicidal and that you do not feel like you are going to harm anyone. You told me that you came because you had nausea and vomiting however you do not want me to examine you and you do not want treatment. If you change your mind, examine you and help you with your symptoms Continue taking medications as prescribed by your providers Follow-up with your doctor in 2 days. Please return to the emergency department if your symptoms get worse or if you develop any symptoms that are concerning to you. Prescriptions: No Action aspirin 81 mg tablet,delayed release (DR/EC) 81 mg PO DAILY Qty: 90 1RF lisinopril 40 mg tablet 40 mg PO DAILY Qty: 90 1RF venlafaxine 75 mg capsule,extended release 24hr 75 mg PO QPM metformin 1,000 mg tablet 1,000 mg PO BID Qty: 60 0RF gabapentin 300 mg capsule 300 mg PO BID Qty: 60 0RF albuterol sulfate 90 mcg/actuation HFA aerosol inhaler 2 puff inhalation Q6H PRN (Reason: shortness of breath or wheezing) Qty: 8.5 0RF
== END 2023-10-30 19:28 | disposition home or self-care (01) ==
LOC: HO.ED 19:26
PROVIDERS: Emergency Provider Emergency Medicine Emergency Medical Services
DX: R11.2 Nausea with vomiting, unspecified (principal); F17.210 Nicotine dependence, cigarettes, uncomplicated; Z79.899 Other long term (current) drug therapy
CPT/HCPCS: 99282

== ENCOUNTER 2023-12-10 11:12 | Outpatient (AMB) | payer OTHER, SELFPAY ==
--- NOTE | 2023-12-10 11:30 | A.OFFPC_ITS ---
Vital Signs 12/10/23 11:40 Height 6 ft 3 in Weight 286 lb BMI 35.7 BP 132/80 Blood Pressure Location Lt brachial Position Sitting Pulse 73 Pulse Source Pulse Oximeter Pulse Oximetry (%) 97 Oxygen Delivery Method Room Air Intake Visit Reasons: Annual PE Intake Note: Pt is here today for PE. Allergies amoxicillin Adverse Reaction (Verified 12/10/23 11:41) Unknown Medication List - Last Reconciled 12/10/23 by Tory Vaughan MD albuterol sulfate 90 mcg/actuation 2 puffs inhalation Q6H PRN aspirin 81 mg PO DAILY gabapentin 300 mg PO BID lisinopril 40 mg PO DAILY metformin 1,000 mg PO BID Tobacco use date assessed: 12/10/23 Dental Screening Dental Screen Date: 12/10/23 Did you have a dental visit in the last 12 months?: Yes Did you have a dental problem in the last 6 months where you did not have access to dental care?: No Was dental information given to patient?: Patient has dentist HPI Annual PE HPI Details Pt presents for PE. Pt c/o 5 days of productive cough, fever, body aches, chest congestion. [facility] Medical History (Updated 12/10/23 @ 12:07 by Tory Vaughan MD) Eczema Obesity Hypertension PTSD (post-traumatic stress disorder) Depression Anxiety Polydrug abuse Diabetes Surgical History History of appendectomy Family History Father Hypertension Mother No problems noted. Social History Housing: Homeless Patient Tobacco Use Status: Current someday Tobacco user Cigarettes Per Day: 2 e-Cigarette/Vaping Use: Never Used Current occupational status: unemployed Cognitive needs: No Hearing needs: No Vision needs: No Questionnaire PHQ-9 Over the last 2 weeks, how often have you been bothered by any of the following problems? 01261 - PHQ-9 Billing: Patient declined-do not bill Source: Developed by Drs. Jose G Isidro, Helga Bolanos, Carlin Murillo and colleagues, with an educational codey from [employer]. Thrive Questionnaire Date Thrive assessed: 12/10/23 I am a: Patient What is your living situation today?: I have a place to live, but I am worried about losing it in the future Within the past 12 months, did the food you bought not last and you didn't have the money to get more?: Sometimes True Within the past 12 months, did you worry whether your food would run out before you got money to buy more?: Sometimes True Do you have trouble paying for medicines?: No Do you have trouble getting transportation to medical appointments?: Yes Do you have trouble paying your heating and electricity bill?: No Do you have trouble taking care of your child, family member or friend?: No Do you have trouble with day-to-day activities such as bathing, preparing meals, shopping, managing finances, etc.?: Yes Are you currently unemployed and looking for a job?: Yes Are you interested in more education?: Yes Please select the resources that you would like help with: Transportation, Daily support, Job search/training and Education THRIVE Score: 4 AUDIT C Alcohol Use Questionnaire (AUDIT-C) 1. How often do you have a drink containing alcohol?: Never 3. How often do you have six or more drinks on one occasion?: Never Total Score: 0 VIANNEY-7 AMB Questionnaire VIANNEY-7 Date VIANNEY - 7 assessed: 12/10/23 Feeling nervous, anxious, or on edge: 3 = Nearly every day Not being able to stop or control worryin = Nearly every day Worrying too much about different things: 3 = Nearly every day Trouble relaxin = Nearly every day Being so restless that it is hard to sit still: 3 = Nearly every day Becoming easily annoyed or irritable: 3 = Nearly every day Feeling afraid as if something awful might happen: 3 = Nearly every day Total VIANNEY-7 score (0-4 normal; 5-9 mild; 10-14 moderate; 15-21 severe): 21 Source: Developed by Drs. Jose G Isidro, Helga Bolanos, Carlin Murillo and colleagues, with an educational codey from [employer]. VIANNEY-7 Assessment Billing VIANNEY-7 Assessment Tool: VIANNEY-7 Assessment 82536 Review of Systems Const All systems reviewed & are unremarkable except as noted in HPI and below Reports no additional complaints Eyes Reports no additional complaints ENT Reports no additional complaints Card Reports no additional complaints Resp Reports no additional complaints GI Reports no additional complaints Reports no additional complaints Physical exam (Primary Care) Vital Signs: Last Vital Signs Pulse 73 12/10/23 11:40 BP 132/80 12/10/23 11:40 Pulse Ox 97 12/10/23 11:40 Oxygen Delivery Method Room Air 12/10/23 11:40 BMI result Body Mass Index 35.7 Tobacco/Smoking Status: Tobacco use Status Tobacco use date assessed 12/10/23 12/10/23 11:41 Patient Tobacco Use Status Current someday Tobacco 12/10/23 11:31 e-Cigarette/Vaping Use Never Used 12/10/23 11:31 Thrive Assessment: Date of Thrive Assessment Date Thrive assessed 12/08/22 12/10/23 11:31 Const General: no acute distress HENMT Head: Yes normal to inspection Ears: hearing grossly normal bilaterally Face and sinus: Yes normal facial exam Eyes General: appearance normal, both eyes and all related structures Neck Neck: Yes supple Resp Effort & Inspection: normal respiratory effort Auscultation: wheezes and diminished lung sounds Cardio Rhythm: regular rhythm Heart sounds: S1 normal heart sound present and S2 normal heart sound present GI Inspection: Yes normal to inspection Palpation (GI): Soft to palpation Percussion: Yes normal to percussion Auscultation: normal bowel sounds Extrem General: Yes no clubbing, cyanosis or edema Assessment and Plan Assessment & Plan (1) Hypertension: Code(s): I10 - Essential (primary) hypertension Plan: Continue lisinopril (2) Diabetes: Code(s): E11.9 - Type 2 diabetes mellitus without complications Plan: ADA diet regular physical activity weight loss discussed with the patient continue metformin 2000 mg a day. Patient will have A1c checked today if A1c is less than 5.7 metformin will be decreased to 1000 mg a day. Follow-up in 6 months with a fasting labs before (3) Annual physical exam: Code(s): Z00.00 - Encounter for general adult medical examination without abnormal findings Plan: Well-balanced diet regular physical activity weight loss discussed with the patient (4) Tracheobronchitis: Code(s): J40 - Bronchitis, not specified as acute or chronic Plan: Z-Chris and prednisone 20 mg daily for 5 days of prescribed and supportive care discussed with the patient. Albuterol p.r.n. Orders: Orders Hemoglobin A1c Today E11.9 - Type 2 diabetes mellitus without complications, I10 - Essential (primary) hypertension, J40 - Bronchitis, not specified as acute or chronic, Z00.00 - Encounter for general adult medical examination without abnormal findings Lipid Panel Today E11.9 - Type 2 diabetes mellitus without complications, I10 - Essential (primary) hypertension, J40 - Bronchitis, not specified as acute or chronic, Z00.00 - Encounter for general adult medical examination without abnormal findings Lipid Panel 6 Months E11.9 - Type 2 diabetes mellitus without complications, I10 - Essential (primary) hypertension Comprehensive [place]. Panel Fast Today E11.9 - Type 2 diabetes mellitus without complications, I10 - Essential (primary) hypertension, J40 - Bronchitis, not specified as acute or chronic, Z00.00 - Encounter for general adult medical examination without abnormal findings Microalbumin, Random (w Creat) Today E11.9 - Type 2 diabetes mellitus without complications, I10 - Essential (primary) hypertension, J40 - Bronchitis, not specified as acute or chronic, Z00.00 - Encounter for general adult medical examination without abnormal findings Complete Blood Count Auto Diff Today E11.9 - Type 2 diabetes mellitus without complications, I10 - Essential (primary) hypertension, J40 - Bronchitis, not specified as acute or chronic, Z00.00 - Encounter for general adult medical examination without abnormal findings Comprehensive [place]. Panel Fast 6 Months E11.9 - Type 2 diabetes mellitus without complications, I10 - Essential (primary) hypertension Hemoglobin A1c 6 Months E11.9 - Type 2 diabetes mellitus without complications, I10 - Essential (primary) hypertension Microalbumin, Random (w Creat) 6 Months E11.9 - Type 2 diabetes mellitus without complications, I10 - Essential (primary) hypertension Medications: New azithromycin For 250 mg dose pack: take 500 mg today (day 1), then 250 mg for 4 days (days 2-5) PO 6 tabs 0RF prednisone 20 mg PO DAILY 5 tabs 0RF Refilled albuterol sulfate 90 mcg/actuation 2 puffs inhalation Q6H PRN 8.5 grams 1RF shortness of breath or wheezing Coding Level of Care Code Est Pt Prev Care 40-64y(27865) Diagnoses Hypertension I10 Diabetes E11.9 Annual physical exam Z00.00 Tracheobronchitis J40 Additional Codes VIANNEY-7 Assessment Billing - VIANNEY-7 Assessment Tool: VIANNEY-7 Assessment [id number] ([id number])
[2023-12-10 11:40] VITALS: BP 132/80; PULSE 73; O2SAT 97; BMI 35.7
== END 2023-12-10 12:10 | disposition home or self-care (01) ==
PROVIDERS: PCP Internal Medicine; Visit Provider Internal Medicine
DX: Z00.00 Encounter for general adult medical examination without abnormal findings (principal); I10 Essential (primary) hypertension; E11.9 Type 2 diabetes mellitus without complications; J40 Bronchitis, not specified as acute or chronic
CPT/HCPCS: 99396

== ENCOUNTER 2023-12-10 12:04 | Outpatient (REF) | payer OTHER, SELFPAY ==
[2023-12-10 13:03] LABS: MANUAL DIFF FLAG NO
[2023-12-10 13:34] LABS: Basophils Absolute Auto 0.1 X10*3/uL (0.0-0.2); Basophils Percent Auto 0.7 % (0-2); Eosinophils Absolute Auto 0.2 X10*3/uL (0.0-0.4); Hematocrit 44.5 % (42.0-52.0); Imm Gran Abs Auto 0.03 X10*3/uL (0.00-0.03); Imm Gran Pct Auto 0.3 % (0.0-0.4); Lymphocytes Absolute Auto 2.2 X10*3/uL (1.2-4.9); Lymphocytes Percent Auto 23.8 % (20-40); Mean Corpuscular HGB Conc 33.7 g/dl (31.0-36.0); Mean Corpuscular Hemoglobin 29.1 pg (27.0-33.0); Mean Corpuscular Volume 86.4 fL (80.0-98.0); Monocytes Absolute Auto 0.7 X10*3/uL (0.1-1.2); Monocytes Percent Auto 7.6 % (2-11); Neutrophils Percent Auto 65.6 % (45-73); Platelet Count 237 X10*3/uL (160-400); Red Blood Count 5.15 X10*6/uL (4.60-5.80); Red Cell Distribution Width 13.2 % (11.0-16.0); White Blood Count 9.2 X10*3/uL (4.8-10.8)
[2023-12-10 13:41] LABS: Estimated Average Glucose 111 mg/dL; Hemoglobin A1c % 5.5 % (<6.0)
[2023-12-10 13:46] LABS: Alanine Aminotransferase 32 U/L (0-40); Albumin Level 4.1 g/dL (3.5-5.0); Alkaline Phosphatase 56 U/L (39-117); Anion Gap 13 (12-20); Aspartate Amino Transferase 22 U/L (5-37); Bilirubin Total 0.4 mg/dL (0.0-1.0); Blood Urea Nitrogen 18 mg/dL (9-16); Calcium 8.5 mg/dL (8.4-10.2); Carbon Dioxide 25 mmol/L (22-29); Chloride 107 mmol/L (96-108); Cholesterol 134 mg/dL (<200); Estimated Glomerular Filt Rate > 60; Glucose Fasting 111 mg/dL (60-99); HDL Cholesterol 28 mg/dL (>40); LDL Cholesterol Calculated 78 mg/dL (<100); Sodium 141 mmol/L (135-145); Total Protein 6.8 g/dL (6.5-8.0); Triglycerides 140 mg/dL (<150)
[2023-12-10 14:06] LABS: Creatinine Urine 182.67 mg/dL; Microalbum/Creatinine Ratio Ur 9.3 ug/mg cr (<30)
== END 2023-12-10 12:05 | disposition home or self-care (01) ==
LOC: HO.HMGCLDS 12:04
PROVIDERS: PCP Internal Medicine; Visit Provider Internal Medicine
DX: Z00.00 Encounter for general adult medical examination without abnormal findings (principal); I10 Essential (primary) hypertension; E11.9 Type 2 diabetes mellitus without complications; J40 Bronchitis, not specified as acute or chronic
CPT/HCPCS: 36415; 80053; 80061; 82043; 82570; 83036; 85025

== ENCOUNTER 2023-12-13 04:04 | Emergency (ER) | payer OTHER, SELFPAY ==
--- NOTE | 2023-12-13 | ECG_ITS ---
Test Reason : CHEST PAIN Blood Pressure : / mmHG Vent. Rate : 085 BPM Atrial Rate : 085 BPM P-R Int : 152 ms QRS Dur : 086 ms QT Int : 364 ms P-R-T Axes : 054 031 042 degrees QTc Int : 433 ms Normal sinus rhythm Normal ECG When compared with ECG of 22-OCT-2023 08:28, No significant change was found Referred By: Generic ED Physician Electronically Signed By:VERA TORREZ MD
--- NOTE | ~2023-12-13 | XR_ITS ---
EXAMINATION: XR CHEST CLINICAL INFORMATION: Dyspnea. COMPARISON: 10/22/2023 TECHNIQUE: 2 views of the chest were obtained. FINDINGS: No significant abnormality is noted involving the heart, lungs, mediastinum, bony thorax or soft tissues. XR/XR chest 2V IMPRESSION: Unremarkable examination.
[2023-12-13 04:12] VITALS: BP 164/83; PULSE 87; RESP 20; TEMP 36.7; O2SAT 96; BMI 36.6
[2023-12-13 04:34] LABS: Basophils Absolute Auto 0.1 X10*3/uL (0.0-0.2); Basophils Percent Auto 0.6 % (0-2); Eosinophils Absolute Auto 0.3 X10*3/uL (0.0-0.4); Eosinophils Percent Auto 2.5 % (0-4); Hemoglobin 15.2 g/dl (14.0-18.0); Imm Gran Abs Auto 0.06 X10*3/uL (0.00-0.03); Imm Gran Pct Auto 0.5 % (0.0-0.4); Lymphocytes Absolute Auto 3.2 X10*3/uL (1.2-4.9); Lymphocytes Percent Auto 27.2 % (20-40); MANUAL DIFF FLAG NO; Mean Corpuscular HGB Conc 33.8 g/dl (31.0-36.0); Mean Corpuscular Hemoglobin 29.5 pg (27.0-33.0); Mean Corpuscular Volume 87.2 fL (80.0-98.0); Mean Platelet Volume 11.4 fL (9.4-12.4); Monocytes Percent Auto 8.3 % (2-11); Neutrophils Percent Auto 60.9 % (45-73); Platelet Count 263 X10*3/uL (160-400); Red Blood Count 5.16 X10*6/uL (4.60-5.80); Red Cell Distribution Width 13.2 % (11.0-16.0); White Blood Count 11.6 X10*3/uL (4.8-10.8)
[2023-12-13 04:49] LABS: Alanine Aminotransferase 27 U/L (0-40); Alkaline Phosphatase 57 U/L (39-117); Anion Gap 15 (12-20); Aspartate Amino Transferase 16 U/L (5-37); Bilirubin Total 0.2 mg/dL (0.0-1.0); Blood Urea Nitrogen 13 mg/dL (9-16); Calcium 9.1 mg/dL (8.4-10.2); Carbon Dioxide 28 mmol/L (22-29); Chloride 105 mmol/L (96-108); Creatinine Clr Calc Pharmacy 129.5; Estimated Glomerular Filt Rate > 60; Glucose Random 161 mg/dL (60-115); Potassium 4.1 mmol/L (3.3-5.1); Sodium 144 mmol/L (135-145); Total Protein 6.8 g/dL (6.5-8.0)
[2023-12-13 04:53] LABS: COVID-19 Test Negative (Negative); IDNOW Serial# 08D9AD1C; IDNOW Serial# 152EDE1D; Influenza A Negative (Negative); Influenza B2 Negative (Negative)
[2023-12-13 04:56] LABS: Troponin-I High Sensitivity 11.8 ng/L (<3.5-35.0)
== END 2023-12-13 07:21 | disposition left against medical advice (07) ==
PROVIDERS: Emergency Provider Emergency Medicine; PCP Internal Medicine
DX: J40 Bronchitis, not specified as acute or chronic (principal); Z11.52 Encounter for screening for COVID-19
CPT/HCPCS: 71046; 80053; 84484; 85025; 87502; 87635; 93005; 99283

== ENCOUNTER → 2023-12-13 04:19 | Outpatient (BNV) | payer OTHER, SELFPAY | PROVIDERS: Emergency Provider Emergency Medicine; PCP Internal Medicine; Visit Provider Internal Medicine Cardiovascular Disease | DX: E07.9 Disorder of thyroid, unspecified (principal) | CPT/HCPCS: 93010 ==

== ENCOUNTER 2023-12-14 09:08 | Outpatient (AMB) | payer OTHER, SELFPAY ==
[2023-12-14 11:07] VITALS: BP 150/80; PULSE 76; TEMP 36.1; O2SAT 96; BMI 36.7
--- NOTE | 2023-12-14 11:07 | MHC.OFFWIV ---
Intake Vital Signs 12/14/23 11:07 Height 6 ft 3 in Weight 294 lb BMI 36.7 BP 150/80 H Blood Pressure Location Lt brachial Position Sitting Pulse 76 Pulse Source Pulse Oximeter Temp 97.0 F Temp Source Temporal Artery Scan Pulse Oximetry (%) 96 Oxygen Delivery Method Room Air Intake Visit Reasons: EP Cough, congestion ~ [id number] Intake Note: pt is here today for cough congestion started 12/09 Patient Tobacco Use Status: Current someday Tobacco user Allergies amoxicillin Adverse Reaction (Verified 12/14/23 11:09) Unknown Do you need a note to return to daycare/school/sports/work: No HPI HPI Comments History of Present Illness Details Patient presents to the walk in for 1 week cough, sinus congestion Patient visit with primary care doctor 4 days ago, treated for bronchitis with prednisone Z-Chris and albuterol inhaler but is not feeling any better Patient went to the ER last night had a chest x-ray, EKG and labs but left without being seen due to the weight Denies fever, chest pain, shortness of breath, palpitations, syncope, weakness Denies headache, ear pain, sore throat. [facility] Medical History (Updated 12/14/23 @ 11:46 by Claribel Arnold APRN, [employer]) Eczema Obesity Hypertension PTSD (post-traumatic stress disorder) Depression Anxiety Polydrug abuse Diabetes Surgical History History of appendectomy Family History Father Hypertension Mother No problems noted. Social History Housing: Homeless Patient Tobacco Use Status: Current someday Tobacco user Cigarettes Per Day: 2 e-Cigarette/Vaping Use: Never Used Current occupational status: unemployed Cognitive needs: No Hearing needs: No Vision needs: No Review of Systems Const All systems reviewed & are unremarkable except as noted in HPI and below Physical Exam Vital Signs: Last Vital Signs Temp 97.0 F 12/14/23 11:07 Pulse 76 12/14/23 11:07 BP 150/80 H 12/14/23 11:07 Pulse Ox 96 12/14/23 11:07 Oxygen Delivery Method Room Air 12/14/23 11:07 BMI result Body Mass Index 36.7 General: awake, alert, oriented. Answers questions appropriately. Fully engaged in examination. Skin: warm, dry, intact HEENT: TMs intact bilaterally, no redness. Posterior pharynx without erythema or exudate. Sclera without icterus or injection. Cardiac: External chest normal in appearance. Respiratory: +cough. LSCTAB. + nasal congestion Abdomen: without gross distension. Neurological: Oriented to person, place, time and situation. Thought process intact. Psychiatric: Appropriate mood and affect. Good judgment and insight. Results Reviewed Results Reviewed: 12/13/2023 CXR: unremarkable Assessment & Plan Assessment & Plan (1) URI (upper respiratory infection): Code(s): J06.9 - Acute upper respiratory infection, unspecified Plan URI, no abx warranted. Reassurance provided, patient advised symptoms most consistent with viral upper respiratory infection. Continue with albuterol inhaler as prescribed by PCP Benzonatate 100mg po bid as needed Rest, drink plenty of fluids, tylenol or motrin as needed. Recommend taking OTC nasal decongestants Follow up with pcp or in clinic for any new or worsening symptoms. Go to ER for shortness of breath, chest pain, palpitations, weakness, dizziness. Medications: New benzonatate 100 mg PO BID PRN 20 caps 0RF cough Coding Level of Care Code Est Pt Level 3 (71399) Diagnoses URI (upper respiratory infection) J06.9
== END 2023-12-14 12:34 | disposition home or self-care (01) ==
PROVIDERS: PCP Internal Medicine; Visit Provider Registered Nurse Emergency
DX: J06.9 Acute upper respiratory infection, unspecified (principal)
CPT/HCPCS: 99213

== ENCOUNTER 2024-03-23 08:52 | Emergency (ER) | payer OTHER, SELFPAY ==
--- NOTE | 2024-03-23 | ECG_ITS ---
Test Reason : CHEST PAINS Blood Pressure : / mmHG Vent. Rate : 075 BPM Atrial Rate : 075 BPM P-R Int : 156 ms QRS Dur : 078 ms QT Int : 394 ms P-R-T Axes : 042 028 035 degrees QTc Int : 439 ms Normal sinus rhythm Normal ECG When compared with ECG of 13-DEC-2023 04:19, No significant change was found Referred By: Generic ED Physician Electronically Signed By:VERA TORREZ MD
--- NOTE | ~2024-03-23 | XR_ITS ---
EXAMINATION: XR CHEST CLINICAL INFORMATION: Dyspnea COMPARISON: November 1723 TECHNIQUE: Frontal view of the chest was obtained. FINDINGS: No significant abnormality is noted involving the heart, lungs, mediastinum, bony thorax or soft tissues. XR/XR chest 1V IMPRESSION: Unremarkable examination.
[2024-03-23 08:55] VITALS: BP 151/93; PULSE 80; O2SAT 99
[2024-03-23 09:02] VITALS: BP 136/86; PULSE 78; RESP 20; TEMP 36.8; O2SAT 94; BMI 36.6
--- NOTE | 2024-03-23 09:31 | ED.CHESTPAIN ---
HPI - Chest Pain General Chief Complaint: Chest Pain Stated Complaint: CP Time Seen by Provider: 03/23/24 09:11 Source: patient and RN notes reviewed Mode of arrival: ambulatory Limitations: no limitations History of Present Illness ED Provider: Rosy Corbett PA-C HPI narrative: This is a 43-year-old male, with a history of diabetes, hypertension, and asthma, who presents emergency department via EMS, with complaints of acute onset chest pressure and shortness of breath. Patient states that he was walking out to his car when he suddenly developed a squeezing like sensation in his chest. This sensation has been constant since its onset. Patient also states some numbness and tingling down his left arm. Patient denies any cardiac history. He states that his family, including uncles, and father, has had cardiac events and their 40s. He states that he has had similar episodes in the past, however states that he would have ambulance come to his house and he would declined transportation and was not over medically evaluated for this. He has never been seen by a bilingual medical receptionist. He denies any fevers, chills, recent illness, cough, recent travel, surgeries, hospitalizations or surgeries. In route he received aspirin and nitroglycerin which provided him with no relief. No other complaints or concerns at this time. MD complaint: chest pain Related Data Previous Rx's ?Medication ?Instructions ?Recorded gabapentin 300 mg capsule 300 mg PO BID #60 caps 05/08/23 metformin 1,000 mg tablet 1,000 mg PO BID #60 tabs 05/08/23 aspirin 81 mg tablet,delayed 81 mg PO DAILY #90 tabs 08/03/23 release albuterol sulfate 90 mcg/actuation 2 puff inhalation Q6H PRN 12/10/23 aerosol inhaler shortness of breath or wheezing #8.5 grams benzonatate 100 mg capsule 100 mg PO BID PRN cough #20 caps 12/14/23 lisinopril 40 mg tablet 40 mg PO DAILY #90 tabs 02/18/24 Allergies Allergy/AdvReac Type Severity Reaction Status Date / Time amoxicillin AdvReac Unknown Verified 03/23/24 09:03 Review of Systems Review of Systems: Yes all other systems are reviewed and are negative [facility] Past Medical History Medical History (Updated 03/23/24 @ 14:03 by JANEY Correa) Eczema Obesity Hypertension PTSD (post-traumatic stress disorder) Depression Anxiety Polydrug abuse Diabetes Surgical History History of appendectomy Family History Family History Father Hypertension Mother No problems noted. Social History Social History Housing: Homeless Alcohol intake: current Alcohol intake frequency: 0-2 drinks per day Patient Tobacco Use Status: Current someday Tobacco user Cigarettes Per Day: 2 Smoked in Last 30 Days: Yes e-Cigarette/Vaping Use: Never Used Use of substances other than those prescribed or required for medical reasons: No Advance Directives: No Do you have a plan to hurt others: No Plan Current occupational status: unemployed Cognitive needs: No Hearing needs: No Vision needs: No Physical Exam Vital Signs: Vital Signs: Last Vital Signs Temp 97.8 F 03/23/24 12:33 Pulse 71 03/23/24 12:33 Resp 16 03/23/24 12:33 BP 160/93 H 03/23/24 12:33 Pulse Ox 98 03/23/24 12:33 O2 Del Method Room Air 03/23/24 12:33 BMI result Body Mass Index 36.6 Course Reevaluation(s) Reevaluation #1: Patient re-evaluated, no relief with nitroglycerin times 3, he remained stable, repeat EKG normal sinus rhythm no ST elevation or depression, better capture with 2nd EKG. Given he has had burning sensation in his abdomen and chest, will treat with viscous lidocaine, Maalox, and elix. Time: 10:15 Reevaluation #2: Patient re-evaluated, still having which spasm like sensation in his chest, repeat troponin pending, will repeat at 1:00 pm Time: 12:00 Reevaluation #3: Patient re-evaluated, still having persistent spasm like sensation in his chest. Will order morphine, and 2nd troponin pending at this time. Will continue to closely monitor. Time: 12:50 Additional Reevaluation(s): 03/23/2024 - 1340 - Went to re-evaluate patient after receiving IV morphine and second troponin was flat. Pt left the ER without completing treatment. To my knowledge, pt still has IV in arm, discussed with nurse, who searched room and ED, also confirmed by security cameras that patient did infact leave the ER. Nurse called police as well as partner did return to emergency room looking for patient and was told that he had eloped. She states that she will go out to the community to try to find patient. Patient's heart score is a 3 03/23/2024 - 1500 - patient had return to the emergency department. Patient states that he had to leave as he had worsening anxiety and just had to get out of the building. He states that he has a history of similar symptoms in the past where he will just leave medical appointments as he feels as though he can no longer stay. He did leave with the IV in his arm however he adamantly denies using any drugs through this IV. States that he is more anxious now that he has back in the emergency room, states that the chest pain is unchanged. I discussed at length his workup today. He had a negative troponin x2. IV was removed from his arm. I reviewed case with my attending physician, Dr. Platt who also saw and assessed patient. There was a discussion on whether not patient would benefit from hospital admission or can follow-up outpatient. Given that patient's workup today was reassuring he has a heart score of 3, unlikely cardiac in nature. It appears as though patient's symptoms are likely psychiatric/anxiety like in nature. Patient discusses long standing history of anxiety, states that he has episodes where he will just leave medical appointments due to anxiety. I discussed strict return precautions with patient. He will follow-up with his primary care physician, he was also given resources from the care team for outpatient services to help with psychiatric difficulties. He has no SI or HI. He is otherwise feeling okay. He understands and agrees with plan. Patient stable for discharge. Medications Administered Discontinued Medications Generic Name Dose Route Start Last Admin Trade Name Freq PRN Reason Stop Dose Admin Al Hydroxide/Mg Hydroxide 30 ml 03/23/24 10:17 03/23/24 10:26 Magnesium Hydrox/Alum Hydrox 30 Ml Oral.Susp PO 03/23/24 10:18 30 ml ONCE ONE Administration Belladonna Alkaloids/Phenobarbital 10 ml 03/23/24 10:17 03/23/24 10:27 Phenobarb/Hyoscy/Atropine/Scop 10 Ml Elixir PO 03/23/24 10:18 10 ml ONCE ONE Administration Lidocaine HCl 15 ml 03/23/24 10:17 03/23/24 10:26 Lidocaine Hcl Viscous 2 % 15 Ml Solution MUCOUS MEM 03/23/24 10:18 15 ml ONCE ONE Administration Morphine Sulfate 4 mg 03/23/24 12:55 03/23/24 12:59 Morphine Sulfate 4 Mg/Ml Cartridge IVPUSH 03/23/24 12:56 4 mg ONCE ONE Administration Protocol Nitroglycerin 0.4 mg 03/23/24 09:33 03/23/24 10:06 Nitroglycerin 0.4 Mg Tab.Subl SUBLINGUAL 0.4 1000units [id number] PRN Administration Chest Pain Medical Decision Making Medical Decision Making [facility] Narrative: This is a 43-year-old male, with a history of hypertension, anxiety, PTSD, and diabetes, who presents emergency department with complaints of episodic chest pain which occurred 1 hour prior to arrival. He was walking and suddenly developed a squeezing like sensation in the middle of his chest. He endorses some numbness and tingling down his left arm. He states that the pain has been constant. EN route he was given nitro, as well as aspirin which provided him without any relief. On initial assessment, patient appears to be uncomfortable secondary to pain. He also appears to be anxious. Patient states that he also felt lightheaded during this episode. He denies any shortness of breath. Vital signs initially within normal limits. He has not hypoxic. He denies any recent travel, surgeries, hospitalizations, history of blood clots or history of cancer. He denies any drug use. Differential diagnoses include ACS, spontaneous pneumothorax, anxiety, panic disorder. 09:31AM - presented case to my attending physician, Dr. Platt, as this sounds cardiac in nature, who advises starting with 2nd course of nitroglycerin to see if this has any relief as presentation is concerning for cardiac event. Differential Diagnosis Differential Diagnoses: The differential diagnosis associated with the presentation includes See above Admission/Observation Consideration of admission/observation: Escalation of care including admission/observation considered Escalation of care including admission/observation considered however given workup today not warranted at this time. Lab Data [facility] Lab Attestation statement: I reviewed the patient's lab results. No leukocytosis, stable H&H, chemistry within normal limits. Troponin x2 negative. BNP 23, viral swabs negative. 03/23/24 09:37 03/23/24 09:37 Labs: Lab Results 03/23/24 03/23/24 03/23/24 Range/Units 09:37 09:52 12:59 WBC 9.6 (4.8-10.8) X10*3/uL RBC 5.02 (4.60-5.80) X10*6/uL Hgb 15.2 (14.0-18.0) g/dl Hct 43.3 (42.0-52.0) % MCV 86.3 (80.0-98.0) fL MCH 30.3 (27.0-33.0) pg MCHC 35.1 (31.0-36.0) g/dl RDW 12.9 (11.0-16.0) % Plt Count 239 (160-400) X10*3/uL MPV 11.2 (9.4-12.4) fL Immature Gran % (Auto) 0.3 (0.0-0.4) % Neut % (Auto) 68.7 (45-73) % Lymph % (Auto) 19.4 L (20-40) % [place] % (Auto) 7.9 (2-11) % Eos % (Auto) 3.0 (0-4) % Baso % (Auto) 0.7 (0-2) % Lymph # (Auto) 1.9 (1.2-4.9) X10*3/uL [place] # (Auto) 0.8 (0.1-1.2) X10*3/uL Eos # (Auto) 0.3 (0.0-0.4) X10*3/uL Baso # (Auto) 0.1 (0.0-0.2) X10*3/uL Abs Immat Gran (auto) 0.03 (0.00-0.03) X10*3/uL Absolute Neuts (auto) 6.6 (2.0-8.3) x10*3/uL Absolute Nucleated RBC 0.000 (0.0-0.012) X10*3/uL Nucleated RBC % (auto) 0.0 (0.0-0.2) /100WBC Sodium 140 (135-145) mmol/L Potassium 3.9 (3.3-5.1) mmol/L Chloride 109 H (96-108) mmol/L Carbon Dioxide 25 (22-29) mmol/L Anion Gap 10 L (12-20) BUN 12 (9-16) mg/dL Creatinine 0.82 (0.5-1.4) mg/dL Estim Creat Clear Calc 170.5 Estimated GFR > 60 Random Glucose 126 H (60-115) mg/dL Calcium 8.4 D (8.4-10.2) mg/dL Magnesium 2.1 (1.6-2.6) mg/dL Total Bilirubin 0.7 (0.0-1.0) mg/dL Direct Bilirubin 0.2 (0.0-0.5) mg/dL AST 17 (5-37) U/L ALT 20 (0-40) U/L Alkaline Phosphatase 60 (39-117) U/L Troponin I High Sens 11.1 11.6 (<3.5-35.0) ng/L B-Natriuretic Peptide 23 (<100) pg/mL Total Protein 6.5 (6.5-8.0) g/dL Albumin 3.9 (3.5-5.0) g/dL Lipase 54 (8-78) U/L Influenza Type A (PCR) NEGATIVE (Negative) Influenza Type B (PCR) NEGATIVE (Negative) RSV RNA Qual (PCR) NEGATIVE (Negative) SARS-CoV-2 RNA (RT-PCR) NEGATIVE (Negative) Independent Interpretation I performed an independent interpretation of an: EKG Interpretation: EKG #1 - 10:27AM - normal sinus rhythm at a ventricular rate of 75 beats per minute, no ST elevation or depression. Normal DE interval. EKG #2 09:10AM - normal sinus rhythm at a ventricular rate of 70 beats per minute, no ST elevation or depression. Radiology Impression Discussion of test interpretation with radiology: I have reviewed the radiologist's reading. Radiologist Impression: XR/XR chest 1V IMPRESSION: Unremarkable examination. Dictated By: Jo Griffin MD Chronic Conditions Patient?s care impacted by: Diabetes Scores Heart Score History: -2- highly suspicious ECG: -0- normal Age: -0- < or = 45 Risk factory: -1- 1 or 2 risk factors Troponin: -0- < or = normal limit Score: 3 Risk: 1.7% Discharge Plan Discharge Clinical Impression: Chest pain Patient Disposition: Elopement Instructions: Chest Pain (ED), Chest Wall Pain (ED), Panic Attack (ED) Additional Instructions: You were seen in the emergency department due to chest pain. Your workup today was reassuring. You need to follow-up with your primary care physician, call today to make an appointment. You can also follow-up with the care team resources provided to you through the booklet. If any new or worsening symptoms occur including but not limited to chest pain, shortness of breath, worsening symptoms, please return to the emergency department for further evaluation. Prescriptions: No Action aspirin 81 mg tablet,delayed release (DR/EC) 81 mg PO DAILY Qty: 90 1RF lisinopril 40 mg tablet 40 mg PO DAILY Qty: 90 1RF metformin 1,000 mg tablet 1,000 mg PO BID Qty: 60 0RF gabapentin 300 mg capsule 300 mg PO BID Qty: 60 0RF albuterol sulfate 90 mcg/actuation HFA aerosol inhaler 2 puff inhalation Q6H PRN (Reason: shortness of breath or wheezing) Qty: 8.5 1RF benzonatate 100 mg capsule 100 mg PO BID PRN (Reason: cough) Qty: 20 0RF Referrals: [facility] [Physician] - Discharge Date/Time: 03/23/24 13:25 Print Language: Persian
[2024-03-23 09:45] LABS: MANUAL DIFF FLAG NO
[2024-03-23 09:46] LABS: Basophils Absolute Auto 0.1 X10*3/uL (0.0-0.2); Basophils Percent Auto 0.7 % (0-2); Eosinophils Absolute Auto 0.3 X10*3/uL (0.0-0.4); Hematocrit 43.3 % (42.0-52.0); Hemoglobin 15.2 g/dl (14.0-18.0); Imm Gran Abs Auto 0.03 X10*3/uL (0.00-0.03); Imm Gran Pct Auto 0.3 % (0.0-0.4); Lymphocytes Absolute Auto 1.9 X10*3/uL (1.2-4.9); Lymphocytes Percent Auto 19.4 % (20-40); Mean Corpuscular HGB Conc 35.1 g/dl (31.0-36.0); Mean Corpuscular Hemoglobin 30.3 pg (27.0-33.0); Mean Corpuscular Volume 86.3 fL (80.0-98.0); Mean Platelet Volume 11.2 fL (9.4-12.4); Monocytes Absolute Auto 0.8 X10*3/uL (0.1-1.2); Monocytes Percent Auto 7.9 % (2-11); Neutrophils Absolute Auto 6.6 x10*3/uL (2.0-8.3); Neutrophils Percent Auto 68.7 % (45-73); Platelet Count 239 X10*3/uL (160-400); Red Blood Count 5.02 X10*6/uL (4.60-5.80); Red Cell Distribution Width 12.9 % (11.0-16.0); White Blood Count 9.6 X10*3/uL (4.8-10.8)
[2024-03-23 09:52] VITALS: BP 148/91; PULSE 74
[2024-03-23] MEDS: Nitroglycerin 0.4 MG TAB.SUBL SUBLINGUAL ×2 (09:52→10:06)
[2024-03-23 10:00] LABS: Alanine Aminotransferase 20 U/L (0-40); Albumin Level 3.9 g/dL (3.5-5.0); Alkaline Phosphatase 60 U/L (39-117); Anion Gap 10 (12-20); Aspartate Amino Transferase 17 U/L (5-37); Bilirubin Direct 0.2 mg/dL (0.0-0.5); Bilirubin Total 0.7 mg/dL (0.0-1.0); Blood Urea Nitrogen 12 mg/dL (9-16); Calcium 8.4 mg/dL (8.4-10.2); Carbon Dioxide 25 mmol/L (22-29); Chloride 109 mmol/L (96-108); Creatinine Clr Calc Pharmacy 170.5; Estimated Glomerular Filt Rate > 60; Glucose Random 126 mg/dL (60-115); Lipase 54 U/L (8-78); Magnesium 2.1 mg/dL (1.6-2.6); Potassium 3.9 mmol/L (3.3-5.1); Sodium 140 mmol/L (135-145); Total Protein 6.5 g/dL (6.5-8.0)
--- NOTE | 2024-03-23 10:00 | PC.NURSE ---
awake and alert. room air, resp even and unlabored. speaking in full clear sentences. reporting 8/10 chest pressure, given nitro SL per orders. abd soft. skin wcd. family at bedside at this time. IV established, blood work sent per orders. VSS.
[2024-03-23 10:06] VITALS: BP 140/81; PULSE 71
[2024-03-23 10:07] LABS: Troponin-I High Sensitivity 11.1 ng/L (<3.5-35.0)
[2024-03-23 10:17] LABS: B Type Natriuretic Peptide 23 pg/mL (<100)
--- NOTE | 2024-03-23 10:17 | ECG_ITS ---
Test Reason : CHEST PAIN Blood Pressure : / mmHG Vent. Rate : 070 BPM Atrial Rate : 070 BPM P-R Int : 158 ms QRS Dur : 080 ms QT Int : 414 ms P-R-T Axes : 019 028 051 degrees QTc Int : 447 ms Normal sinus rhythm Normal ECG When compared with ECG of 23-MAR-2024 09:10, No significant change was found Referred By: Rosy Corbett Electronically Signed By:VERA TORREZ MD
[2024-03-23 10:24] LABS: Influenza A PCR NEGATIVE (Negative); Influenza B PCR NEGATIVE (Negative); Resp Syncy Virus RNA Qual PCR NEGATIVE (Negative); SARS COV2 PCR INHOUSE NEGATIVE (Negative)
[2024-03-23] MEDS: Lidocaine HCl Viscous 2 % 15 ML SOLUTION MUCOUS MEM (10:26)
[2024-03-23] MEDS: Magnesium Hydrox/Alum Hydrox 30 ML ORAL.SUSP PO (10:26)
[2024-03-23] MEDS: PHENobarb/Hyoscy/Atropine/Scop 10 ML ELIXIR PO (10:27)
[2024-03-23 12:33] VITALS: BP 160/93; PULSE 71; RESP 16; TEMP 36.6; O2SAT 98
[2024-03-23] MEDS: Morphine Sulfate 4 MG/ML CARTRIDGE IVPUSH (12:59)
[2024-03-23 13:27] LABS: Troponin-I High Sensitivity 11.6 ng/L (<3.5-35.0)
--- NOTE | 2024-03-23 13:54 | PC.NURSE ---
pt missing from room with gown on bed. This RN and provider searched through department and bathrooms for pt. Security consulted and confirmed that pt left at [address] with IV still in place[address] [place] police contacted to conduct well being check to bring pt bck for IV removal. air hose coupler and provider aware.
== END 2024-03-23 13:25 | disposition left against medical advice (07) ==
LOC: HO.ED 09:41
PROVIDERS: Physician Assistant Medical; Emergency Provider Emergency Medicine; PCP Internal Medicine
DX: R07.9 Chest pain, unspecified (principal); R06.02 Shortness of breath; I10 Essential (primary) hypertension; E11.9 Type 2 diabetes mellitus without complications; J45.909 Unspecified asthma, uncomplicated; Z03.818 Encounter for observation for suspected exposure to other biological agents ruled out
CPT/HCPCS: 0241U; 36415; 71045; 80048; 80076; 83690; 83735; 83880; 84484; 85025; 93005; 96374; 99284; J2270

== ENCOUNTER → 2024-03-23 09:10 | Outpatient (BNV) | payer OTHER, SELFPAY | PROVIDERS: Emergency Provider Emergency Medicine; PCP Internal Medicine; Visit Provider Internal Medicine Cardiovascular Disease | DX: R07.9 Chest pain, unspecified (principal) | CPT/HCPCS: 93010 ==

== ENCOUNTER 2024-04-13 12:19 | Outpatient (AMB) | payer OTHER, SELFPAY ==
[2024-04-13 12:38] VITALS: BP 139/88; PULSE 87; O2SAT 97; BMI 35.6
--- NOTE | 2024-04-13 12:38 | MHC.PC.OV ---
Vital Signs 04/13/24 12:38 Height 6 ft 3 in Weight 285 lb BMI 35.6 BP 139/88 Blood Pressure Location Lt brachial Position Sitting Pulse 87 Pulse Source Pulse Oximeter Pulse Oximetry (%) 97 Oxygen Delivery Method Room Air Intake Visit Reasons: ReScheled from 04/12- Intake Note: Pt is here today for a f/u Allergies amoxicillin Adverse Reaction (Verified 04/13/24 12:38) Unknown Medication List - Last Reconciled 04/13/24 by Tory Vaughan MD albuterol sulfate 90 mcg/actuation 2 puffs inhalation Q6H PRN aspirin 81 mg PO DAILY lisinopril 40 mg PO DAILY Tobacco use date assessed: 04/13/24 Dental Screening Dental Screen Date: 04/13/24 Did you have a dental visit in the last 12 months?: No Did you have a dental problem in the last 6 months where you did not have access to dental care?: No Was dental information given to patient?: Patient declined HPI ReScheled from 04/12- HPI Details Patient presents for the follow-up of ER visit for shortness of breath and chest pain. Cardiac workup was negative. Patient reports having anxiety but denies depression. He has been seeing counselor on and off and denies suicidal ideation. Patient complains of intermittent diarrhea on and off for the last few months not related to diet. he denies abdominal pain hematochezia melena nausea vomiting fever or chills. Patient has been monitoring his blood glucose with the readings between 100-110. [facility], [facility] Medical History Eczema Obesity Hypertension PTSD (post-traumatic stress disorder) Depression Anxiety Polydrug abuse Diabetes Surgical History History of appendectomy Family History Father Hypertension Mother No problems noted. Social History Housing: Homeless Alcohol intake: current Alcohol intake frequency: 0-2 drinks per day Patient Tobacco Use Status: Current someday Tobacco user Cigarettes Per Day: 2 e-Cigarette/Vaping Use: Never Used Current occupational status: unemployed Cognitive needs: No Hearing needs: No Vision needs: No Questionnaire Thrive Questionnaire Date Thrive assessed: 12/10/23 VIANNEY-7 AMB Questionnaire VIANNEY-7 Date VIANNEY - 7 assessed: 12/10/23 Source: Developed by Drs. Jose G Isidro, Helga Bolanos, Carlin Murillo and colleagues, with an educational codey from [employer]. Review of Systems Const All systems reviewed & are unremarkable except as noted in HPI and below ENT Reports no additional complaints Card Reports no additional complaints Resp Reports no additional complaints GI Reports no additional complaints Reports no additional complaints Physical exam (Primary Care) Vital Signs: Last Vital Signs Pulse 87 04/13/24 12:38 BP 160/98 H 04/13/24 12:38 Pulse Ox 97 04/13/24 12:38 Oxygen Delivery Method Room Air 04/13/24 12:38 BMI result Body Mass Index 35.6 Tobacco/Smoking Status: Tobacco use Status Tobacco use date assessed 04/13/24 04/13/24 12:41 Patient Tobacco Use Status Current someday Tobacco 04/13/24 12:41 e-Cigarette/Vaping Use Never Used 04/13/24 12:41 Thrive Assessment: Date of Thrive Assessment Date Thrive assessed 12/10/23 04/13/24 12:41 Const General: no acute distress HENMT Face and sinus: Yes normal facial exam Eyes General: appearance normal, both eyes and all related structures Neck Neck: Yes supple Resp Effort & Inspection: normal respiratory effort Auscultation: clear to auscultation bilaterally Cardio Rhythm: regular rhythm Heart sounds: S1 normal heart sound present and S2 normal heart sound present GI Inspection: Yes normal to inspection Palpation (GI): Soft to palpation Percussion: Yes normal to percussion Auscultation: normal bowel sounds Assessment and Plan Assessment & Plan (1) Diarrhea: Code(s): R19.7 - Diarrhea, unspecified Plan: Obtain stool studies, lactose-free diet discussed with the patient. He has an appointment scheduled with GI (2) Hypertension: Code(s): I10 - Essential (primary) hypertension Plan: Add 5 mg of amlodipine to lisinopril, low-sodium diet regular exercise discussed with the patient. Follow-up in 1 month for blood pressure check (3) Anxiety: Code(s): F41.9 - Anxiety disorder, unspecified Plan: Stress management discussed with the patient he will continue to follow-up with a counselor and Psychiatry Orders: Orders GI Panel Today R19.7 - Diarrhea, unspecified Leukocytes Stool Qualitative Today R19.7 - Diarrhea, unspecified Medications: New amlodipine 5 mg PO DAILY 90 tabs 0RF Coding Level of Care Code Est Pt Level 4 (18740) Diagnoses Diarrhea R19.7 Hypertension I10 Anxiety F41.9
== END 2024-04-13 13:11 | disposition home or self-care (01) ==
PROVIDERS: PCP Internal Medicine; Visit Provider Internal Medicine
DX: R19.7 Diarrhea, unspecified (principal); I10 Essential (primary) hypertension; F41.9 Anxiety disorder, unspecified
CPT/HCPCS: 99214

== ENCOUNTER 2024-04-26 08:08 | Outpatient (AMB) | payer OTHER, SELFPAY ==
[2024-04-26 08:23] VITALS: BP 192/120; PULSE 76; O2SAT 96; BMI 35.6
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
[2024-04-26 08:47] VITALS: BP 164/96
== END 2024-04-26 10:07 | disposition home or self-care (01) ==
PROVIDERS: PCP Internal Medicine; Visit Provider Registered Nurse
DX: J06.9 Acute upper respiratory infection, unspecified (principal); I10 Essential (primary) hypertension
CPT/HCPCS: 99214

== ENCOUNTER 2024-04-26 08:45 | Outpatient (REF) | payer OTHER, SELFPAY ==
[2024-04-26 11:34] LABS: Influenza A PCR NEGATIVE (Negative); Influenza B PCR NEGATIVE (Negative); Resp Syncy Virus RNA Qual PCR NEGATIVE (Negative); SARS COV2 PCR INHOUSE NEGATIVE (Negative)
== END 2024-04-26 08:46 | disposition home or self-care (01) ==
LOC: HO.LNP 08:45
PROVIDERS: Visit Provider Registered Nurse
DX: J06.9 Acute upper respiratory infection, unspecified (principal)
CPT/HCPCS: 0241U

== ENCOUNTER 2024-05-06 09:23 | Outpatient (AMB) | payer OTHER, SELFPAY ==
--- NOTE | 2024-05-06 09:24 | A.OFFPC_ITS ---
Vital Signs 05/06/24 09:25 Height 6 ft 3 in Weight 285 lb BMI 35.6 BP 158/96 H Blood Pressure Location Lt brachial Position Sitting Pulse 90 Pulse Source Pulse Oximeter Pulse Oximetry (%) 97 Oxygen Delivery Method Room Air Intake Visit Reasons: Adverse reaction to BP medication Intake Note: Pt is here today for a sick visit. Pt c/o adverse reaction to BP med pt c/o vomiting weakness. Allergies amlodipine Allergy (Intermediate, Verified 05/06/24 09:38) Flushing amoxicillin Adverse Reaction (Verified 05/06/24 09:28) Unknown Tobacco use date assessed: 05/06/24 Dental Screening Dental Screen Date: 04/13/24 HPI Adverse reaction to BP medication HPI Details Patient presents for the follow-up of hypertension. He could not tolerate amlodipine because developed hot flashes lightheadedness and dizziness. Patient has been taking lisinopril regularly. [facility] Medical History Eczema Obesity Hypertension PTSD (post-traumatic stress disorder) Depression Anxiety Polydrug abuse Diabetes Surgical History History of appendectomy Family History Father Hypertension Mother No problems noted. Social History Housing: Homeless Alcohol intake: current Alcohol intake frequency: 0-2 drinks per day Patient Tobacco Use Status: Current someday Tobacco user Cigarettes Per Day: 2 e-Cigarette/Vaping Use: Never Used service: No Current occupational status: unemployed Cognitive needs: No Hearing needs: No Vision needs: No Questionnaire Thrive Questionnaire Date Thrive assessed: 12/10/23 VIANNEY-7 AMB Questionnaire VIANNEY-7 Date VIANNEY - 7 assessed: 12/10/23 Source: Developed by Drs. Jose G Isidro, Helga Bolanos, Carlin Murillo and colleagues, with an educational codey from [employer]. Review of Systems Const All systems reviewed & are unremarkable except as noted in HPI and below ENT Reports no additional complaints Card Reports no additional complaints Resp Reports no additional complaints GI Reports no additional complaints Reports no additional complaints Physical exam (Primary Care) Vital Signs: Last Vital Signs Pulse 90 05/06/24 09:25 BP 158/96 H 05/06/24 09:25 Pulse Ox 97 05/06/24 09:25 Oxygen Delivery Method Room Air 05/06/24 09:25 BMI result Body Mass Index 35.6 Tobacco/Smoking Status: Tobacco use Status Tobacco use date assessed 05/06/24 05/06/24 09:28 Patient Tobacco Use Status Current someday Tobacco 05/06/24 09:28 e-Cigarette/Vaping Use Never Used 05/06/24 09:28 Thrive Assessment: Date of Thrive Assessment Date Thrive assessed 12/10/23 05/06/24 09:28 Const General: no acute distress Eyes General: appearance normal, both eyes and all related structures Resp Effort & Inspection: normal respiratory effort Auscultation: clear to auscultation bilaterally Cardio Rhythm: regular rhythm Heart sounds: S1 normal heart sound present and S2 normal heart sound present Assessment and Plan Assessment & Plan (1) Hypertension: Code(s): I10 - Essential (primary) hypertension Qualifiers: Hypertension type: unspecified Qualified Code(s): I10 - Essential (primary) hypertension Plan: Add bisoprolol with hydrochlorothiazide 5/6.25 to lisinopril, follow-up in 1 month with a fasting labs before (2) Diabetes: Comment: diet controlled A1C 5.5 12/2023 Code(s): E11.9 - Type 2 diabetes mellitus without complications Plan: Continue ADA diet increase physical activity weight loss discussed with the patient Orders: Orders Comprehensive Grady. Panel Fast 1 Month E11.9 - Type 2 diabetes mellitus without complications, I10 - Essential (primary) hypertension Lipid Panel 1 Month E11.9 - Type 2 diabetes mellitus without complications, I10 - Essential (primary) hypertension Hemoglobin A1c 1 Month E11.9 - Type 2 diabetes mellitus without complications, I10 - Essential (primary) hypertension Microalbumin, Random (w Creat) 1 Month E11.9 - Type 2 diabetes mellitus without complications, I10 - Essential (primary) hypertension UA w Microscopic 1 Month E11.9 - Type 2 diabetes mellitus without complications, I10 - Essential (primary) hypertension Medications: New bisoprolol-hydrochlorothiazide 5-6.25 mg 1 tab PO DAILY 30 tabs 0RF Coding Level of Care Code Est Pt Level 3 (76304) Diagnoses Hypertension, unspecified type I10 Hypertension type: unspecified Diabetes E11.9
[2024-05-06 09:25] VITALS: BP 158/96; PULSE 90; O2SAT 97; BMI 35.6
== END 2024-05-06 10:26 | disposition home or self-care (01) ==
LOC: HO.HMGC 09:23
PROVIDERS: PCP Internal Medicine; Visit Provider Internal Medicine
DX: I10 Essential (primary) hypertension (principal); E11.9 Type 2 diabetes mellitus without complications
CPT/HCPCS: 99213

== ENCOUNTER 2024-05-20 11:22 | Outpatient (AMB) | payer OTHER, SELFPAY ==
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
[2024-05-20 11:42] VITALS: BP 132/86; PULSE 82; O2SAT 97; BMI 36.1
== END 2024-05-20 12:02 | disposition home or self-care (01) ==
PROVIDERS: PCP Internal Medicine; Visit Provider Internal Medicine
DX: I10 Essential (primary) hypertension (principal)
CPT/HCPCS: 99213

== ENCOUNTER 2024-10-05 05:19 | Observation (INO) | payer OTHER, SELFPAY ==
[2024-10-05] VITALS (8 sets, daily range): BP systolic 150–181; BP diastolic 80–100; PULSE 69–90; RESP 12–20; TEMP 36.6–36.8; O2SAT 96–98; BMI 39.8
--- NOTE | ~2024-10-05 | CT_ITS ---
EXAMINATION: CT ABDOMEN PELVIS WITH IV CONTRAST HISTORY: Possible subcapsular hematoma to Left kidney on prior unenhanced examination COMPARISON: Comparison is made with the prior unenhanced examination performed earlier in the day. TECHNIQUE: CT scan of the abdomen and pelvis was performed following administration of 85 mL Omnipaque 350 using standard departmental protocol. Coronal and sagittal reformatted images were generated and reviewed. Oral contrast material was not administered at the request of the referring physician. This CT exam was performed with one or more of the following dose reduction techniques: automated exposure control, adjustment of the mA and/or kV according to patient size, use of iterative reconstruction technique. DLP: 1099 mGy-cm FINDINGS: LOWER CHEST: The visualized lung bases are clear. There is no pleural effusion. CARDIOVASCULATURE: The heart is normal in size. There is no pericardial effusion. LIVER: The liver is normal in size and contour, but demonstrates decreased attenuation, consistent with steatosis. No liver mass is identified. The hepatic and portal veins are patent. GALLBLADDER / BILE DUCTS: The gallbladder is unremarkable. There is no intra or extrahepatic biliary ductal dilatation. SPLEEN: The spleen is normal in size. No focal splenic lesion is identified. PANCREAS: The pancreas is unremarkable in appearance. ADRENAL GLANDS: Within normal limits. KIDNEYS/RETROPERITONEUM: There are multiple right renal cysts, largest of which is at the lower pole measuring 3.0 cm in diameter. There is a hyperdense subcapsular fluid collection involving the left kidney consistent with a subcapsular hemorrhage. This measures up to 1.8 cm in thickness. The hemorrhage is isodense to a 3.0 cm exophytic lesion at the lower pole which may represent a hemorrhagic cyst or possibly neoplasm. There are left renal cysts measuring up to 2.2 cm. There is no hydronephrosis. LYMPH NODES: No abdominal or pelvic lymphadenopathy. VASCULATURE: The abdominal aorta is normal in caliber. MESENTERY/PERITONEUM: No free fluid. No masses. There is no free intraperitoneal gas. STOMACH: The stomach is collapsed, limiting evaluation. SMALL BOWEL: The small bowel is normal in caliber. COLON: There is a moderate to large amount of stool throughout the colon. APPENDIX: Appendix is not seen, however no inflammatory changes are seen adjacent to the cecum. URINARY BLADDER/PELVIC ORGANS: The urinary bladder is unremarkable. The prostate is normal in size. BONES / SOFT TISSUES: No suspicious bony or soft tissue abnormalities. CT/CT abdomen pelvis w IV con IMPRESSION: Left renal subcapsular hemorrhage measuring up to 1.8 cm in thickness. The subcapsular hemorrhage is isodense to a 3.0 cm exophytic lesion at the lower pole, which may represent a hemorrhagic cyst or neoplasm. Follow-up is recommended. Electronically signed by: Jose G Thacker MD 10/05/2024 11:01 AM [facility]
--- NOTE | ~2024-10-05 | CT_ITS ---
CLINICAL HISTORY: LLQ LUQ pain, white count CT abdomen pelvis without IV contrast. Comparison: Abdominal ultrasound 01/21/2019 Findings: No acute process evident in the lung bases. Heart size normal. No pleural or pericardial effusion. Prominent liver at 24.8 cm in length, although may reflect Shaye's lobe variant. Homogeneous. No focal abnormality. Normal contour. Contracted gallbladder. No opaque stones, wall thickening or edema. No biliary dilatation. Pancreas, spleen and adrenals intact for unenhanced exam. Diffusely edematous left kidney with perinephric stranding suggesting acute pyelonephritis. Punctate lower pole stones suggested. No obstructing stone, hydronephrosis or hydroureter. Subtly increased attenuation in the renal periphery most compatible with residual more normal cortical density with otherwise edematous kidney. Can not completely exclude a subcapsular hematoma and follow-up contrasted CT suggested if no contraindication. 32 mm exophytic focus lower pole right kidney with indeterminate density measurement. This could also be assessed with contrasted CT. 34 mm lower pole cyst right kidney. No follow-up required. No right nephrolithiasis. Minimal scar or congenital defect midpole. No bowel obstruction or acute perienteric inflammation. No diverticulitis. No abnormal appendix. Normal caliber aorta and IVC. No enlarged mesenteric or retroperitoneal lymph nodes. Urinary bladder decompressed. Prostate in Situ without exophytic abnormality. Thoracic spondylosis/diffuse idiopathic skeletal hyperostosis. Mid and lower lumbar facet arthritis. Otherwise bones intact. Soft tissues unremarkable. Impression: Edematous left kidney with perinephric stranding suggesting acute pyelonephritis. Correlation for abnormality of urine analysis. Subtle hyperdensity along the periphery may reflect more normal attenuation and otherwise edematous kidney. Subcapsular hematoma difficult to completely exclude. Follow-up contrasted CT suggested. 32 mm indeterminate exophytic focus lower pole can be reassessed with contrasted exam. No other acute findings. This document has been electronically signed by: Shoaib Goodwin MD on 10/05/2024 08:23:09
--- NOTE | 2024-10-05 05:39 | PC.NURSE ---
Pt a&ox4, no signs of distress. Pt ambulates with a steady gait Pt reports he woke up to use the bathroom around 0430 and began to have 10/10 left flank pain w/ nausea and then vomiting. Plan of care ongoing.
[2024-10-05 06:16] LABS: MANUAL DIFF FLAG NO
[2024-10-05 06:20] LABS: Basophils Absolute Auto 0.1 X10*3/uL (0.0-0.2); Basophils Percent Auto 0.6 % (0-2); Eosinophils Absolute Auto 0.3 X10*3/uL (0.0-0.4); Eosinophils Percent Auto 2.1 % (0-4); Hematocrit 43.3 % (42.0-52.0); Hemoglobin 14.8 g/dl (14.0-18.0); Imm Gran Abs Auto 0.07 X10*3/uL (0.00-0.03); Imm Gran Pct Auto 0.5 % (0.0-0.4); Lymphocytes Absolute Auto 2.4 X10*3/uL (1.2-4.9); Lymphocytes Percent Auto 16.8 % (20-40); Mean Corpuscular HGB Conc 34.2 g/dl (31.0-36.0); Mean Corpuscular Hemoglobin 29.1 pg (27.0-33.0); Mean Corpuscular Volume 85.2 fL (80.0-98.0); Mean Platelet Volume 11.9 fL (9.4-12.4); Monocytes Absolute Auto 1.2 X10*3/uL (0.1-1.2); Monocytes Percent Auto 8.2 % (2-11); Neutrophils Absolute Auto 10.2 x10*3/uL (2.0-8.3); Neutrophils Percent Auto 71.8 % (45-73); Platelet Count 211 X10*3/uL (160-400); Red Blood Count 5.08 X10*6/uL (4.60-5.80); Red Cell Distribution Width 12.2 % (11.0-16.0); White Blood Count 14.2 X10*3/uL (4.8-10.8)
[2024-10-05 06:36] LABS: Alanine Aminotransferase 37 U/L (0-40); Albumin Level 3.8 g/dL (3.5-5.0); Alkaline Phosphatase 61 U/L (39-117); Anion Gap 14 (12-20); Aspartate Amino Transferase 17 U/L (5-37); Bilirubin Total 0.2 mg/dL (0.0-1.0); Blood Urea Nitrogen 17 mg/dL (9-16); Calcium 8.2 mg/dL (8.4-10.2); Carbon Dioxide 21 mmol/L (22-29); Chloride 111 mmol/L (96-108); Creatinine Clr Calc Pharmacy 160.6; Estimated Glomerular Filt Rate > 60; Glucose Random 155 mg/dL (60-115); Potassium 3.9 mmol/L (3.3-5.1); Sodium 142 mmol/L (135-145); Total Protein 6.5 g/dL (6.5-8.0)
--- NOTE | 2024-10-05 06:54 | ED.GENADULT ---
HPI - General Adult General Chief complaint: Back Pain/Injury Stated complaint: ABDOMINAL PAIN Time Seen by Provider: 10/05/24 06:39 Source: patient and EMS Mode of arrival: EMS Limitations: no limitations History of Present Illness ED Provider: NATI LOPEZ PA-C HPI narrative: 43 year old male with pmhx significant for diabetes, hypertension, asthma, anxiety, depression, PTSD, eczema presents to the ED today via EMS for evaluation of left-sided abdominal pain x4 hours. He reports this pain woke him from his sleep around 0300 this morning. Pain radiates to his left back. Pain is currently a 10/10. No history of similar. Reports taking Tylenol around 0430 without improvement. Admits to one episode of vomiting d/t the severity of the pain. He had a normal BM this morning. No personal history of diverticulosis/diverticulitis or renal stones. Patient admits he is currently homeless and living in a hotel. Denies fever, chills, flank pain, dysuria, hematuria. Related Data Home Medications ?Medication ?Instructions ?Recorded ?Confirmed bisoprolol 5 1 tab PO DAILY 10/05/24 10/05/24 mg-hydrochlorothiazide 6.25 mg tablet Previous Rx's ?Medication ?Instructions ?Recorded aspirin 81 mg tablet,delayed 81 mg PO DAILY #90 tabs 08/03/23 release lisinopril 40 mg tablet 40 mg PO DAILY #90 tabs 08/16/24 Allergies Allergy/AdvReac Type Severity Reaction Status Date / Time amlodipine Allergy Intermediate Flushing Verified 10/05/24 05:32 amoxicillin AdvReac Unknown Verified 10/05/24 05:32 Review of Systems Review of Systems: Constitutional: No fever, chills, fatigue, night sweats, weight changes ENT/Mouth: No ear pain, hearing loss, nasal congestion, sinus pain, rhinorrhea, sore throat Eyes: No eye pain, swelling, redness, vision changes, discharge Cardio: No chest pain, palpitations, CHAMBERS, orthopnea, peripheral edema Pulm: No SOB, cough, sputum, wheezing, dyspnea, hemoptysis GI: No nausea, vomiting, hematemesis, diarrhea, constipation, hematochezia, melena, +abdominal pain : No irregular bleeding, dysuria, frequency, urgency, hesitancy, hematuria, flank pain, urinary flow changes, urinary incontinence or retention MSK: No back pain, neck pain, joint pain, myalgias Skin: No lesions, rashes Neuro: No weakness, numbness, paresthesias, LOC, dizziness, headache Psych: No anxiety/panic, depression, SI/HI, AH/VH All other systems reviewed and are negative. [facility] Past Medical History Attestation statement: The following information was validated with the patient. Source: old records reviewed and nursing notes reviewed Medical History Eczema Obesity Hypertension PTSD (post-traumatic stress disorder) Depression Anxiety Polydrug abuse Diabetes Surgical History History of appendectomy Family History Family History Father Hypertension Mother No problems noted. Social History Social History Housing: Homeless Alcohol intake: current Alcohol intake frequency: holidays/special occasions only Patient Tobacco Use Status: Current someday Tobacco user Cigarettes Per Day: 2 Smoked in Last 30 Days: Yes e-Cigarette/Vaping Use: Never Used Use of substances other than those prescribed or required for medical reasons: No Advance Directives: No Advance Directives Information Provided: Yes service: No Current occupational status: unemployed Cognitive needs: No Hearing needs: No Vision needs: No Physical Exam ED Vital Signs: Vital Signs - 24 hr 10/05/24 05:29 10/05/24 07:24 10/05/24 10:56 Temperature 97.9 F Pulse Rate 70 76 69 Respiratory Rate 12 18 18 Blood Pressure 177/80 H 179/96 H 181/93 H Pulse Oximetry 96 97 98 Oxygen Delivery Method Room Air Room Air Room Air BMI result Body Mass Index 39.8 vital signs stable, afebrile General: Well appearing, in no acute distress. Skin: Warm, dry, intact. No rashes or lesions. Head: Normocephalic, atraumatic. EENT: Hearing is intact b/l. Conjunctiva clear. PERRLA. EOM intact. Moist mucous membranes.? Neck: Supple without LAD Cardiac: Chest wall symmetric. RRR. Lungs: Normal respiratory effort without accessory muscle use. CTA bilaterally Abdomen: obese abd, soft, mildly ttp of LUQ/LLQ with deep palpation, no rebound or guarding. normoactive bs x4. no cvat bilaterally. Back: No midline spinous or paraspinal tenderness. No step off deformity. Ext: Upper and lower extremities atraumatic, without tenderness, deformity, swelling or erythema. Full ROM throughout. Neuro: AOx3. Normal speech. Ambulating with steady gait. Psych: Appropriate mood and affect. Responds appropriately to questions. Course Course Course Narrative: 720 -- CBC with leukocytosis to 14.2, no left shift. No anemia. H&H stable. Chemistry without acute electrolyte abnormality requiring intervention. No HANSEL. Random glucose 155. Liver function WNL. UA pending. CT A/P pending. Morphine ordered for pain control. Will continue to monitor. 829 --dry CT of abdomen/pelvis showing diffusely edematous left kidney with perinephric stranding suggestive of acute pyelonephritis. There are punctate lower pole stones without obstructing stone, hydronephrosis or hydroureter. Subtly increased attenuation in the renal periphery most compatible with residual more normal cortical density with otherwise edematous kidney. Subcapsular hematoma cannot be completely excluded - recommending CT with contrast. I did discuss case with my attending physician Dr. Pepe. After review of case and discussion, CT angio abdomen/pelvis ordered to assess for any active bleeding. His H&H stable at this time. He denies any trauma to the abdomen. There is no overlying ecchmosis to abdomen/ flank. Not on anticoagulation. > UA pending. > patient continues endorsing 10/10 pain despite receiving morphine. IV Dilaudid ordered. IV ceftriaxone ordered for pyelonephritis. He does report allergy to amoxicillin with reaction of rash. No anaphylaxis. Will monitor after receiving ceftriaxone. > anticipate admission > BP elevated. Patient reports taking lisinopril 40 mg daily however did not have a chance to take his morning dose. will administer in ED. 1227 -- CT abdomen/pelvis with contrast showing left renal subcapsular hemorrhage measuring up to 1.8 cm in thickness. The subcapsular hemorrhage is isodense to a 3 cm exophytic lesion at the lower pole which could possibly represent hemorrhagic cyst or neoplasm. I did repeat patient's CBC and his H&H is stable. There is no noted anemia concerning for acute blood loss. > I did reach out to authorization manager urologist, Dr. Webster regarding case. He was recommending pain control with outpatient follow-up. Recommending repeat scan in 2-3 months to re-evaluate hemorrhage/hematoma. > His pain continues to be poorly controlled. I have given him an IV dose of morphine and Dilaudid. I trialed p.o. morphine without improvement. Patient states that the pain is actually getting worse. will reach out to the hospitalist for admission vs observation for IV pain control and repeat H&H. 1430 -- hospitalist has accepted patient admission for observation. Medications Administered Generic Name Dose Route Start Last Admin Trade Name Freq PRN Reason Stop Dose Admin Oxycodone HCl 5 mg 10/05/24 13:00 10/05/24 14:02 Oxycodone Hcl Immed Release 5 Mg Tablet PO 5 mg Q6H LEIGHANN Administration Discontinued Medications Generic Name Dose Route Start Last Admin Trade Name Freq PRN Reason Stop Dose Admin Ceftriaxone Sodium 1 gm 10/05/24 08:30 10/05/24 08:51 Ceftriaxone Sodium 1 Gm Vial IVPUSH 10/05/24 08:31 1 gm ONCE ONE Administration Hydromorphone HCl 1 mg 10/05/24 08:30 10/05/24 08:51 Hydromorphone Hcl 1 Mg/Ml Syringe IVPUSH 10/05/24 08:31 1 mg ONCE ONE Administration Protocol Sodium Chloride 1,000 mls @ 999 mls/hr 10/05/24 08:30 10/05/24 09:55 Ns IV 10/05/24 09:30 Infused .Q1H1M LEIGHANN Infusion Iohexol 100 ml 10/05/24 09:43 10/05/24 09:48 Iohexol 350 Mg/Ml 100 Ml Infus..Btl IV 10/05/24 09:44 100 ml ONCE ONE Administration Labetalol HCl 5 mg 10/05/24 13:01 10/05/24 14:02 Labetalol Hcl 100 Mg/20 Ml Vial IVPUSH 10/05/24 13:02 5 mg ONCE ONE Administration Lisinopril 40 mg 10/05/24 10:40 10/05/24 10:57 Lisinopril 40 Mg Tablet PO 10/05/24 10:41 40 mg ONCE ONE Administration Protocol Morphine Sulfate 4 mg 10/05/24 07:11 10/05/24 07:21 Morphine Sulfate 4 Mg/Ml Cartridge IVPUSH 10/05/24 07:12 4 mg ONCE ONE Administration Protocol Morphine Sulfate 15 mg 10/05/24 11:22 10/05/24 11:43 Morphine Sulfate Immed Release 15 Mg Tablet PO 10/05/24 11:23 15 mg ONCE ONE Administration Medical Decision Making Medical Decision Making [facility] Narrative: 43 year old male with pmhx significant for diabetes, hypertension, asthma, anxiety, depression, PTSD, eczema presents to the ED today via EMS for evaluation of left-sided abdominal pain x4 hours. Hypertensive, vitals otherwise WNL. Afebrile. he is nontoxic appearing, however ambulating around the room d/t his discomfort. mildly disphoretic. exam significant for obese abd, soft, mildly ttp of LUQ/LLQ with deep palpation, no rebound or guarding. normoactive bs x4. no cvat bilaterally. Differential diagnoses: appendicitis, diverticulitis, diverticulosis, urinary tract infection, nephrolithiasis. Abdominal exam without peritoneal signs. No evidence of acute abdomen at this time. Lower suspicion for acute hepatobiliary disease (including acute cholecystitis), acute infectious processes (pneumonia, hepatitis, pyelonephritis), vascular catastrophe, bowel obstruction or viscus perforation, testicular torsion/ epididymitis. Presentation not consistent with other acute, emergent causes of abdominal pain at this time. Plan: labs, UA, CT AP, pain control, serial reassessment Differential Diagnosis Differential Diagnoses: The differential diagnosis associated with the presentation includes as above. Admission/Observation not indicated Consult Healthcare Provider Management of the patient was discussed with: Hospitalist and [facility], Dr. Webster Hospitalist, Dr. Jacobsen Lab Data [facility] Lab Attestation statement: I reviewed the patient's lab results. as above. 10/05/24 11:28 10/05/24 06:03 Labs: Lab Results 10/05/24 10/05/24 10/05/24 Range/Units 06:03 10:18 11:28 WBC 14.2 H 14.1 H (4.8-10.8) X10*3/uL RBC 5.08 4.96 (4.60-5.80) X10*6/uL Hgb 14.8 14.6 (14.0-18.0) g/dl Hct 43.3 42.7 (42.0-52.0) % MCV 85.2 86.1 (80.0-98.0) fL MCH 29.1 29.4 (27.0-33.0) pg MCHC 34.2 34.2 (31.0-36.0) g/dl RDW 12.2 12.4 (11.0-16.0) % Plt Count 211 185 (160-400) X10*3/uL MPV 11.9 11.5 (9.4-12.4) fL Immature Gran % (Auto) 0.5 H 0.4 (0.0-0.4) % Neut % (Auto) 71.8 73.5 H (45-73) % Lymph % (Auto) 16.8 L 16.7 L (20-40) % Mitchell % (Auto) 8.2 7.4 (2-11) % Eos % (Auto) 2.1 1.5 (0-4) % Baso % (Auto) 0.6 0.5 (0-2) % Lymph # (Auto) 2.4 2.4 (1.2-4.9) X10*3/uL Mitchell # (Auto) 1.2 1.1 (0.1-1.2) X10*3/uL Eos # (Auto) 0.3 0.2 (0.0-0.4) X10*3/uL Baso # (Auto) 0.1 0.1 (0.0-0.2) X10*3/uL Abs Immat Gran (auto) 0.07 H 0.05 H (0.00-0.03) X10*3/uL Absolute Neuts (auto) 10.2 H 10.4 H (2.0-8.3) x10*3/uL Absolute Nucleated RBC 0.000 0.000 (0.0-0.012) X10*3/uL Nucleated RBC % (auto) 0.0 0.0 (0.0-0.2) /100WBC Sodium 142 (135-145) mmol/L Potassium 3.9 (3.3-5.1) mmol/L Chloride 111 H (96-108) mmol/L Carbon Dioxide 21 L (22-29) mmol/L Anion Gap 14 (12-20) BUN 17 H (9-16) mg/dL Creatinine 0.91 (0.5-1.4) mg/dL Estim Creat Clear Calc 160.6 Estimated GFR > 60 Random Glucose 155 H (60-115) mg/dL Calcium 8.2 L (8.4-10.2) mg/dL Total Bilirubin 0.2 (0.0-1.0) mg/dL AST 17 (5-37) U/L ALT 37 (0-40) U/L Alkaline Phosphatase 61 (39-117) U/L Total Protein 6.5 (6.5-8.0) g/dL Albumin 3.8 (3.5-5.0) g/dL Lipase 26 (8-78) U/L Urine Color Yellow Urine Appearance Clear Urine pH 5.0 (5.0-9.0) Ur Specific [place] >= 1.030 H (1.005-1.025) Urine Protein 100 (2+) H (Neg-Trace) mg/dL Urine Glucose (UA) Negative (Negative) mg/dL Urine Ketones Negative (Negative) mg/dL Urine Blood Small (1+) H (Negative) Urine Nitrite Negative (Negative) Ur Leukocyte Esterase Negative (Negative) Urine RBC 3-5 H (0-2) /HPF Urine WBC 0-5 (0-5) /HPF Ur Squamous Epith Cells 0-2 (0-2) /HPF Calcium Oxalate Crystal Present Urine Bacteria None Seen (None Seen) Hyaline Casts 0-2 (0-2) /LPF Independent Interpretation I performed an independent interpretation of an: CT Scan Interpretation: CT A/P with perinephric stranding around left kidney CT A/P w/ con showing hematoma to left kidney Radiology Impression Discussion of test interpretation with radiology: I have reviewed the radiologist's reading. Radiologist Impression: Ordering Physician: Nati Lopez Date of Service: 10/05/24 Procedure(s): CT abdomen pelvis wo IV con Accession Number(s): [id number] cc: Physician,Unknown ; Nati Lopez~ Report Number: [id number]: Total DLP = 1083.00 mGy-cm CLINICAL HISTORY: LLQ LUQ pain, white count CT abdomen pelvis without IV contrast. Comparison: Abdominal ultrasound 01/21/2019 Findings: No acute process evident in the lung bases. Heart size normal. No pleural or pericardial effusion. Prominent liver at 24.8 cm in length, although may reflect Shaye's lobe variant. Homogeneous. No focal abnormality. Normal contour. Contracted gallbladder. No opaque stones, wall thickening or edema. No biliary dilatation. Pancreas, spleen and adrenals intact for unenhanced exam. Diffusely edematous left kidney with perinephric stranding suggesting acute pyelonephritis. Punctate lower pole stones suggested. No obstructing stone, hydronephrosis or hydroureter. Subtly increased attenuation in the renal periphery most compatible with residual more normal cortical density with otherwise edematous kidney. Can not completely exclude a subcapsular hematoma and follow-up contrasted CT suggested if no contraindication. 32 mm exophytic focus lower pole right kidney with indeterminate density measurement. This could also be assessed with contrasted CT. 34 mm lower pole cyst right kidney. No follow-up required. No right nephrolithiasis. Minimal scar or congenital defect midpole. No bowel obstruction or acute perienteric inflammation. No diverticulitis. No abnormal appendix. Normal caliber aorta and IVC. No enlarged mesenteric or retroperitoneal lymph nodes. Urinary bladder decompressed. Prostate in Situ without exophytic abnormality. Thoracic spondylosis/diffuse idiopathic skeletal hyperostosis. Mid and lower lumbar facet arthritis. Otherwise bones intact. Soft tissues unremarkable. Impression: Edematous left kidney with perinephric stranding suggesting acute pyelonephritis. Correlation for abnormality of urine analysis. Subtle hyperdensity along the periphery may reflect more normal attenuation and otherwise edematous kidney. Subcapsular hematoma difficult to completely exclude. Follow-up contrasted CT suggested. 32 mm indeterminate exophytic focus lower pole can be reassessed with contrasted exam. No other acute findings. This document has been electronically signed by: Shoaib Goodwin MD on 10/05/2024 08:23:09 Ordering Physician: Nati Lopez Date of Service: 10/05/24 Procedure(s): CT abdomen pelvis w IV con Accession Number(s): [id number] cc: Physician,Unknown ; Nati Lopez~ Report Number: [id number]: Total DLP = 1099.00 mGy-cm EXAMINATION: CT ABDOMEN PELVIS WITH IV CONTRAST HISTORY: Possible subcapsular hematoma to Left kidney on prior unenhanced examination COMPARISON: Comparison is made with the prior unenhanced examination performed earlier in the day. TECHNIQUE: CT scan of the abdomen and pelvis was performed following administration of 85 mL Omnipaque 350 using standard departmental protocol. Coronal and sagittal reformatted images were generated and reviewed. Oral contrast material was not administered at the request of the referring physician. This CT exam was performed with one or more of the following dose reduction techniques: automated exposure control, adjustment of the mA and/or kV according to patient size, use of iterative reconstruction technique. DLP: 1099 mGy-cm FINDINGS: LOWER CHEST: The visualized lung bases are clear. There is no pleural effusion. CARDIOVASCULATURE: The heart is normal in size. There is no pericardial effusion. LIVER: The liver is normal in size and contour, but demonstrates decreased attenuation, consistent with steatosis. No liver mass is identified. The hepatic and portal veins are patent. GALLBLADDER / BILE DUCTS: The gallbladder is unremarkable. There is no intra or extrahepatic biliary ductal dilatation. SPLEEN: The spleen is normal in size. No focal splenic lesion is identified. PANCREAS: The pancreas is unremarkable in appearance. ADRENAL GLANDS: Within normal limits. KIDNEYS/RETROPERITONEUM: There are multiple right renal cysts, largest of which is at the lower pole measuring 3.0 cm in diameter. There is a hyperdense subcapsular fluid collection involving the left kidney consistent with a subcapsular hemorrhage. This measures up to 1.8 cm in thickness. The hemorrhage is isodense to a 3.0 cm exophytic lesion at the lower pole which may represent a hemorrhagic cyst or possibly neoplasm. There are left renal cysts measuring up to 2.2 cm. There is no hydronephrosis. LYMPH NODES: No abdominal or pelvic lymphadenopathy. VASCULATURE: The abdominal aorta is normal in caliber. MESENTERY/PERITONEUM: No free fluid. No masses. There is no free intraperitoneal gas. STOMACH: The stomach is collapsed, limiting evaluation. SMALL BOWEL: The small bowel is normal in caliber. COLON: There is a moderate to large amount of stool throughout the colon. APPENDIX: Appendix is not seen, however no inflammatory changes are seen adjacent to the cecum. URINARY BLADDER/PELVIC ORGANS: The urinary bladder is unremarkable. The prostate is normal in size. BONES / SOFT TISSUES: No suspicious bony or soft tissue abnormalities. CT/CT abdomen pelvis w IV con IMPRESSION: Left renal subcapsular hemorrhage measuring up to 1.8 cm in thickness. The subcapsular hemorrhage is isodense to a 3.0 cm exophytic lesion at the lower pole, which may represent a hemorrhagic cyst or neoplasm. Follow-up is recommended. Electronically signed by: Jose G Thacker MD 10/05/2024 11:01 AM [facility] External Record Review External record reviewed: Inpatient record Prescription Management I considered prescription management with: Pain Medication (Morphine) Chronic Conditions Patient?s care impacted by: Diabetes and Hypertension Social Determinants Patient?s care significantly limited by Social Determinants of Health including: Other Social Determinant of Health Critical Care Time Critical Care Time Critical Care Time: Yes Total Critical Care Time: 35 Attestation: Critical care time in the amount of 35 minutes has been provided to the patient in terms of direct patient care, frequent reevaluation, consultation with urologist and hospitalist, review and interpretation of medical data and results, and management of potentially life-threatening conditions. This is all outside of any medical procedures. Discharge Plan Discharge Clinical Impression: Renal hemorrhage, left, Leukocytosis Patient Disposition: Admitted as Observation
[2024-10-05] MEDS: Morphine Sulfate 4 MG/ML CARTRIDGE IVPUSH ×2 (07:21→15:07)
[2024-10-05 07:42] LABS: Lipase 26 U/L (8-78)
[2024-10-05] MEDS: cefTRIAXone sodium 1 GM VIAL IVPUSH (08:51)
[2024-10-05] MEDS: HYDROmorphone HCl 1 MG/ML SYRINGE IVPUSH (08:51)
[2024-10-05] MEDS: 0.9 % Sodium Chloride 1,000 ML 999 ML IV (08:51)
[2024-10-05] MEDS: iohexoL 350 MG/ML 100 ML INFUS..BTL IV (09:48)
[2024-10-05 10:24] LABS: Appearance Urine Clear; Color Urine Yellow; Glucose Urine UA Negative (Negative); Leukocyte Esterase Urine Negative (Negative); Nitrite Urine Negative (Negative); Specific Gravity - Urine >= 1.030 (1.005-1.025); UMIC TRIGGER UACC YES; Urine Blood Small (1+) (Negative); Urine Ketones Negative (Negative); Urine Protein 100 (2+) mg/dL (Neg-Trace)
[2024-10-05 10:36] LABS: Bacteria Urine None Seen (None Seen); Calcium Oxalate Crystals Urine Present; Hyaline Casts Urine 0-2 /LPF (0-2); Squamous Epithelial Cell Urine 0-2 /HPF (0-2); WBC Urine 0-5 /HPF (0-5)
[2024-10-05] MEDS: lisinopriL 40 MG TABLET PO (10:57)
[2024-10-05 11:31] LABS: MANUAL DIFF FLAG NO
[2024-10-05 11:33] LABS: Basophils Absolute Auto 0.1 X10*3/uL (0.0-0.2); Basophils Percent Auto 0.5 % (0-2); Eosinophils Absolute Auto 0.2 X10*3/uL (0.0-0.4); Eosinophils Percent Auto 1.5 % (0-4); Hematocrit 42.7 % (42.0-52.0); Hemoglobin 14.6 g/dl (14.0-18.0); Imm Gran Abs Auto 0.05 X10*3/uL (0.00-0.03); Imm Gran Pct Auto 0.4 % (0.0-0.4); Lymphocytes Absolute Auto 2.4 X10*3/uL (1.2-4.9); Lymphocytes Percent Auto 16.7 % (20-40); Mean Corpuscular HGB Conc 34.2 g/dl (31.0-36.0); Mean Corpuscular Hemoglobin 29.4 pg (27.0-33.0); Mean Corpuscular Volume 86.1 fL (80.0-98.0); Mean Platelet Volume 11.5 fL (9.4-12.4); Monocytes Absolute Auto 1.1 X10*3/uL (0.1-1.2); Monocytes Percent Auto 7.4 % (2-11); Neutrophils Absolute Auto 10.4 x10*3/uL (2.0-8.3); Neutrophils Percent Auto 73.5 % (45-73); Platelet Count 185 X10*3/uL (160-400); Red Blood Count 4.96 X10*6/uL (4.60-5.80); Red Cell Distribution Width 12.4 % (11.0-16.0); White Blood Count 14.1 X10*3/uL (4.8-10.8)
[2024-10-05] MEDS: Morphine Sulfate Immed Release 15 MG TABLET PO (11:43)
--- NOTE | 2024-10-05 12:33 | PM.IMHP ---
History of Present Illness Date of Service: 10/05/24 Attending physician on admission: Nidia Jacobsen Chief Complaint: Abdominal pain Pt is a 43-year-old male with a PMH significant for?asthma, HTN, hx of polysubstance use disorder, PTSD, anxiety, and depression who presents to the ED with?left-sided pain since this morning. Pt reports woke up at approximately 04:30 to use the bathroom and noticed left-sided abdominal pain radiating to his back. Pt also had 1 episode of nausea and vomiting secondary to pain. Reports pain continues to be 10/10 despite receiving IV analgesics in the ED. pain worsening with movement, deep inspiration, or cough. Pt denies polyuria or dysuria. No chest pain/pressure, palpitations. No fever, chills. ED clinician contacted Dr. Webster from Urology who recommended pain management and outpatient follow-up. In the ED pt was hypertensive up to 181/93, vitals otherwise stable and WNL. Labs were significant for leukocytosis of 14.2 otherwise grossly unremarkable and baseline for pt. Stable H&H. No significant electrolyte abnormalities. Renal and hepatic function baseline. Lipase WNL at 26. UA likely negative for UTI, negative for nitrites, leukocyte esterase, and bacteria. CT without contrast of abdomen and pelvis found edematous left kidney with perinephric stranding suggestive of acute pyelonephritis as well as subtle hyperdensity along periphery. CT of abdomen/pelvis with contrast found left renal subcapsular hemorrhage measuring up to 1.8 cm with a 3.0 cm exophytic lesion at lower pole, possibly representing hemorrhagic cyst versus neoplasm. Pt was treated with ceftriaxone, IVF, lisinopril, morphine IV and p.o., and Dilaudid IV. Pt will be admitted to the hospital for treatment and further evaluation of intractable pain secondary to left renal subscapular hematoma. Review of Systems Review of Systems: Negative except for that is stated in the [facility] Medical History Eczema Obesity Hypertension PTSD (post-traumatic stress disorder) Depression Anxiety Polydrug abuse Diabetes Family History Father Hypertension Mother No problems noted. Surgical History History of appendectomy Social History Housing: Homeless Alcohol intake: current Alcohol intake frequency: holidays/special occasions only Patient Tobacco Use Status: Current someday Tobacco user Cigarettes Per Day: 2 Smoked in Last 30 Days: Yes e-Cigarette/Vaping Use: Never Used Use of substances other than those prescribed or required for medical reasons: No Advance Directives: No Advance Directives Information Provided: Yes service: No Current occupational status: unemployed Cognitive needs: No Hearing needs: No Vision needs: No Meds Allergies Allergy/AdvReac Type Severity Reaction Status Date / Time amlodipine Allergy Intermediate [place]ushing Verified 10/05/24 05:32 amoxicillin AdvReac Unknown Verified 10/05/24 05:32 Physical Exam Vital Signs and Narrative: Vital Signs: Last Vital Signs Temp 97.9 F 10/05/24 05:29 Pulse 69 10/05/24 10:56 Resp 18 10/05/24 10:56 BP 181/93 H 10/05/24 10:56 Pulse Ox 98 10/05/24 10:56 O2 Del Method Room Air 10/05/24 10:56 BMI result Body Mass Index 39.8 General: AOx3, no acute distress Resp: CTA bilaterally CVS: S1, S2, RRR GI: +BS, no distention. Left-sided abd tenderness. Back: Mild left CVA tenderness Skin: Warm, dry Neuro: Cranial nerves II-XII grossly intact bilaterally. Motor grossly intact bilaterally Extremities: No edema Psych: Appropriate affect Results Labs 10/05/24 11:28 10/05/24 06:03 Labs: Laboratory Results - last 24 hr 10/05/24 10/05/24 10/05/24 06:03 10:18 11:28 MCV 85.2 86.1 MCH 29.1 29.4 MCHC 34.2 34.2 RDW 12.2 12.4 Plt Count 211 185 MPV 11.9 11.5 Immature Gran % (Auto) 0.5 H 0.4 Neut % (Auto) 71.8 73.5 H Lymph % (Auto) 16.8 L 16.7 L [place] % (Auto) 8.2 7.4 Eos % (Auto) 2.1 1.5 Baso % (Auto) 0.6 0.5 Lymph # (Auto) 2.4 2.4 [place] # (Auto) 1.2 1.1 Eos # (Auto) 0.3 0.2 Baso # (Auto) 0.1 0.1 Abs Immat Gran (auto) 0.07 H 0.05 H Absolute Neuts (auto) 10.2 H 10.4 H Absolute Nucleated RBC 0.000 0.000 Nucleated RBC % (auto) 0.0 0.0 Anion Gap 14 Estim Creat Clear Calc 160.6 Estimated GFR > 60 Random Glucose 155 H Calcium 8.2 L Total Bilirubin 0.2 AST 17 ALT 37 Alkaline Phosphatase 61 Total Protein 6.5 Albumin 3.8 Lipase 26 Urine Color Yellow Urine Appearance Clear Urine pH 5.0 Ur Specific [place] >= 1.030 H Urine Protein 100 (2+) H Urine Glucose (UA) Negative Urine Ketones Negative Urine Blood Small (1+) H Urine Nitrite Negative Ur Leukocyte Esterase Negative Urine RBC 3-5 H Urine WBC 0-5 Ur Squamous Epith Cells 0-2 Calcium Oxalate Crystal Present Urine Bacteria None Seen Hyaline Casts 0-2 Imaging Radiologist's Impressions: Impressions Abdomen/Pelvis CT 10/05/24 09:38 IMPRESSION: Left renal subcapsular hemorrhage measuring up to 1.8 cm in thickness. The subcapsular hemorrhage is isodense to a 3.0 cm exophytic lesion at the lower pole, which may represent a hemorrhagic cyst or neoplasm. Follow-up is recommended. Electronically signed by: Jose G Thacker MD 10/05/2024 11:01 AM [facility] Assessment and Plan (1) Renal hemorrhage, left: Status: Acute (2) Intractable abdominal pain: Status: Acute Plan Pt is a 43-year-old male with a PMH significant for?asthma, HTN, hx of polysubstance use disorder, PTSD, anxiety, and depression who presents to the ED with?left-sided pain since this morning. Pt will be admitted to the hospital for treatment and further evaluation of intractable pain secondary to left renal subscapular hematoma. Left renal subscapular hematoma Pt with intractable left-sided abd/flank/back pain CT of abd w/contrast showing renal subsequently hemorrhage 1.8 cm Urology consulted by ED, indicated no acute intervention necessary at this time Pt continues with 10/10 pain despite treatment with analgesics in the ED Analgesics for pain management: Scheduled oxycodone and p.r.n. morphine Should follow up outpatient with Urology for subscapular hematoma resolution Follow CBC Question of pyelonephritis Initial dry CT perinephric stranding suggestive acute pyelonephritis Repeat CT with contrast instead showed left subcapsular hematoma Pt without polyuria or dysuria, UA negative for nitrites, leukocyte esterase, or bacteria No indication to continue antibiotics at this time Hypertensive urgency BP as high as 181/93 Pt with long history of poorly controlled HTN Continue lisinopril Labetalol 5 mg IV SBP >170 Ahp-lramfby-[id number] type 2 diabetes Hold metformin Sliding-scale insulin Diabetic diet Asthma Not in acute exacerbation Continue home inhalers Full Code Attending:?Dr. Jacobsen DVT Prophylaxis: Pt ambulatory, here only for observation Pt will be hospital under observation for treatment and further evaluation of intractable left-sided abdominal and back pain secondary to left renal subscapular hematoma. Given patient's intractable pain not controlled with p.o. medications, require hospital level care administration of IV analgesics and close monitoring of labs. Quality Stroke Does the patient have a stroke diagnosis?: No VTE Prior VTE?: No VTE Risk Level:: Medical - moderate - high VTE Device Contraindication: Treatment Not Indicated VTE Drug Contraindication: Treatment Not Indicated
[2024-10-05] MEDS: Labetalol HCL 100 MG/20 ML VIAL IVPUSH (14:02)
[2024-10-05] MEDS: oxyCODONE HCl Immed Release 5 MG TABLET PO (14:02)
--- NOTE | 2024-10-05 14:25 | PHA.MEDREC ---
Addendum entered by Kailey Stephens RPh 10/05/24 14:31: reviewed by [facility]. Original Note: Pharmacy Consult ? Medication Reconciliation Pharmacy has completed the medication reconciliation. Spoke to patient to confirm med list. Patient was able to confirm all his medications. Patient states he takes Metformin 1,000 BID, however there are no claims. Patient says he fills his medications at [facility]. Called [facility] they stated patient hasn't filled Metformin since April 2023. left of med rec and will notify the doctor.
[2024-10-05] MEDS: 0.9 % Sodium Chloride Flush 3 ML SYRINGE IVFLUSH (15:04)
--- NOTE | 2024-10-05 18:33 | P.DS_ITS ---
DS: Providers Provider Date of Service: 10/05/24 Date of admission: 10/05/24 13:03 Date of discharge: 10/05/24 Primary care physician: Tory Vaughan MD DS: Diagnosis Discharge Diagnosis (1) Renal hemorrhage, left: Status: Acute (2) Intractable abdominal pain: Status: Acute DS: Summary Hospital Course Hospital Course: From admission H&P: Pt is a 43-year-old male with a PMH significant for?asthma, HTN, hx of polysubstance use disorder, PTSD, anxiety, and depression who presents to the ED with?left-sided pain since this morning. Pt reports woke up at approximately 04:30 to use the bathroom and noticed left-sided abdominal pain radiating to his back. Pt also had 1 episode of nausea and vomiting secondary to pain. Reports pain continues to be 10/10 despite receiving IV analgesics in the ED. pain worsening with movement, deep inspiration, or cough. Pt denies polyuria or dysuria. No chest pain/pressure, palpitations. No fever, chills. ED clinician contacted Dr. Webster from Urology who recommended pain management and outpatient follow-up. In the ED pt was hypertensive up to 181/93, vitals otherwise stable and WNL. Labs were significant for leukocytosis of 14.2 otherwise grossly unremarkable and baseline for pt. Stable H&H. No significant electrolyte abnormalities. Renal and hepatic function baseline. Lipase WNL at 26. UA likely negative for UTI, negative for nitrites, leukocyte esterase, and bacteria. CT without contrast of abdomen and pelvis found edematous left kidney with perinephric stranding suggestive of acute pyelonephritis as well as subtle hyperdensity along periphery. CT of abdomen/pelvis with contrast found left renal subcapsular hemorrhage measuring up to 1.8 cm with a 3.0 cm exophytic lesion at lower pole, possibly representing hemorrhagic cyst versus neoplasm. Pt was treated with ceftriaxone, IVF, lisinopril, morphine IV and p.o., and Dilaudid IV. Pt will be admitted to the hospital for treatment and further evaluation of intractable pain secondary to left renal subscapular hematoma. Hospital course: Pt left AMA due to apparent conflict with personal belongings in the community. Pt states he is homeless and stayed at a hotel last night that apparently was going to be throwing out all of his belongings if he did not pay for the night or immediately come and pick them up. Pt was encouraged to stay for pain control and monitoring of CBC. Despite being told the risks of worsening symptoms including rupture of hematoma that could cause internal bleeding, pt elected to leave AMA. Pt was noted to be ambulating without difficulty. Time Attestation Discharge Coordination Time (in mins): 18 Quality: Safe Use of Opioids Does Pt have an Active Cancer Diagnosis on the Problem List?: No Quality: Stroke Does the patient have a stroke diagnosis?: No Physical Exam Vital Signs: Vital Signs: Last Vital Signs Temp 98.1 F 10/05/24 16:00 Pulse 76 10/05/24 16:00 Resp 20 10/05/24 16:00 BP 171/92 H 10/05/24 16:00 Pulse Ox 97 10/05/24 16:00 O2 Del Method Room Air 10/05/24 16:00 BMI result Body Mass Index 39.8 Pt left AMA DS: Data Data Completed and Pending Labs on day of discharge: Laboratory Results - last 24 hr 10/05/24 10/05/24 10/05/24 06:03 10:18 11:28 WBC 14.2 H 14.1 H RBC 5.08 4.96 Hgb 14.8 14.6 Hct 43.3 42.7 MCV 85.2 86.1 MCH 29.1 29.4 MCHC 34.2 34.2 RDW 12.2 12.4 Plt Count 211 185 MPV 11.9 11.5 Immature Gran % (Auto) 0.5 H 0.4 Neut % (Auto) 71.8 73.5 H Lymph % (Auto) 16.8 L 16.7 L [place] % (Auto) 8.2 7.4 Eos % (Auto) 2.1 1.5 Baso % (Auto) 0.6 0.5 Lymph # (Auto) 2.4 2.4 [place] # (Auto) 1.2 1.1 Eos # (Auto) 0.3 0.2 Baso # (Auto) 0.1 0.1 Abs Immat Gran (auto) 0.07 H 0.05 H Absolute Neuts (auto) 10.2 H 10.4 H Absolute Nucleated RBC 0.000 0.000 Nucleated RBC % (auto) 0.0 0.0 Sodium 142 Potassium 3.9 Chloride 111 H Carbon Dioxide 21 L Anion Gap 14 BUN 17 H Creatinine 0.91 Estim Creat Clear Calc 160.6 Estimated GFR > 60 Random Glucose 155 H Calcium 8.2 L Total Bilirubin 0.2 AST 17 ALT 37 Alkaline Phosphatase 61 Total Protein 6.5 Albumin 3.8 Lipase 26 Urine Color Yellow Urine Appearance Clear Urine pH 5.0 Ur Specific [place] >= 1.030 H Urine Protein 100 (2+) H Urine Glucose (UA) Negative Urine Ketones Negative Urine Blood Small (1+) H Urine Nitrite Negative Ur Leukocyte Esterase Negative Urine RBC 3-5 H Urine WBC 0-5 Ur Squamous Epith Cells 0-2 Calcium Oxalate Crystal Present Urine Bacteria None Seen Hyaline Casts 0-2 Discharge Plan Discharge Patient Disposition: Left Against Medical Advice Referrals: Tory Vaughan MD [Primary Care Provider] - 1 Week Discharge Medications: No Action metformin 500 mg Tablet Extended Release 24 Hr 500 mg PO DAILY acetaminophen 325 mg Tablet 650 mg PO Q6H PRN (Reason: Pain, Mild 1-3,Fever,Headache) Qty: 20 0RF lidocaine [Lidocaine Pain Relief] 4 % Adhesive Patch,Medicated 1 patch transdermal DAILY Qty: 7 0RF Protocol: Apply to: Apply to: Pain area polyethylene glycol 3350 17 gram Powder In Packet 17 g PO DAILY Qty: 30 0RF docusate sodium 100 mg Capsule 100 mg PO BID Qty: 30 0RF oxycodone 5 mg Tablet 10 mg PO Q6H PRN (Reason: pain) Qty: 20 0RF Rx Instructions: Partial Fill upon patient request. bisoprolol-hydrochlorothiazide 5-6.25 mg tablet 1 tab PO DAILY Qty: 90 0RF lisinopril 40 mg tablet 40 mg PO DAILY Qty: 90 1RF Discharge Orders: Discharge Order (Routine); Ordered 10/05/24 Ordered By: Tiburcio Mcconnell Print Language: Vietnamese Care Plan Goals: Resolution of symptoms and subscapular hematoma Health Concerns: Rupturing of subscapular hematoma Worsening of symptoms Plan of Treatment: [id number] analgesics for pain management Follow up outpatient with PCP and Urology Assessment: See discharge summary Discharge Date/Time: 10/05/24 18:32
--- NOTE | 2024-10-05 18:36 | PC.NURSE ---
Patient requested to have the IV removed and stated he is leaving, provider notified, education on the importance of following up with PCP and Urology provided. IV removed, patient ambulated off unit after signing AMA forms.
== END 2024-10-05 18:32 | disposition left against medical advice (07) ==
LOC: HO.ED 12:33 → HO.EDOVER 14:26 → HO.S3 14:49
PROVIDERS: Physician Assistant Medical; Admitting Provider Student in an Organized Health Care Education/Training Program; Emergency Provider Student in an Organized Health Care Education/Training Program; PCP Internal Medicine; Visit Provider Student in an Organized Health Care Education/Training Program
DX: N28.89 Other specified disorders of kidney and ureter (principal); D72.829 Elevated white blood cell count, unspecified; R10.32 Left lower quadrant pain; R10.12 Left upper quadrant pain; R11.10 Vomiting, unspecified; E11.9 Type 2 diabetes mellitus without complications; I10 Essential (primary) hypertension; J45.909 Unspecified asthma, uncomplicated; N28.1 Cyst of kidney, acquired; Z79.899 Other long term (current) drug therapy; Z53.29 Procedure and treatment not carried out because of patient's decision for other reasons
CPT/HCPCS: 36415; 74176; 74177; 80053; 81001; 83690; 85025; 96361; 96374; 96375; 96376; 99221; 99285; J0696; J1171; J1920; J2270; Q9967

== ENCOUNTER → 2024-10-05 07:11 | Outpatient (BNV) | payer OTHER, SELFPAY | PROVIDERS: Emergency Provider Student in an Organized Health Care Education/Training Program; Visit Provider Radiology Diagnostic Radiology | DX: S37.022A Major contusion of left kidney, initial encounter (principal) | CPT/HCPCS: 74176; 74177 ==

== ENCOUNTER → 2024-10-05 13:03 | Outpatient (BNV) | payer OTHER, SELFPAY | PROVIDERS: Admitting Provider Student in an Organized Health Care Education/Training Program; Emergency Provider Student in an Organized Health Care Education/Training Program; PCP Internal Medicine; Visit Provider Student in an Organized Health Care Education/Training Program | DX: N28.89 Other specified disorders of kidney and ureter (principal); R10.9 Unspecified abdominal pain | CPT/HCPCS: 99499 ==

== ENCOUNTER 2024-10-05 21:04 | Inpatient (IN) | payer OTHER, SELFPAY ==
[2024-10-05 21:10] VITALS: BP 176/81; PULSE 82; RESP 18; TEMP 36.8; O2SAT 98; BMI 32.1
[2024-10-05 23:19] VITALS: BP 156/78; PULSE 85; RESP 18; TEMP 37; O2SAT 98
[2024-10-06] VITALS (12 sets, daily range): BP systolic 138–217; BP diastolic 62–108; PULSE 81–95; RESP 16–20; TEMP 36.8–37.6; O2SAT 93–98
--- NOTE | 2024-10-06 00:25 | ED_ITS ---
HPI - Abdominal Pain General Chief Complaint: Abdominal Pain Stated Complaint: L side abd pain Source: patient Mode of arrival: ambulatory Limitations: no limitations History of Present Illness ED Provider: DR. Cardoza HPI narrative: 43-year-old male return to the emergency department for evaluation of severe left flank pain started 1 day ago, patient had a full evaluation at our emergency department today and workup revealed left renal subcapsular hematoma, patient denies any history of trauma, fall, injury to the back, or taking any anticoagulation. Patient then decided to sign against medical advice and leave. Patient is back with intractable left flank pain asking for being admitted again. Related Data Home Medications ?Medication ?Instructions ?Recorded ?Confirmed bisoprolol 5 1 tab PO DAILY 10/05/24 10/05/24 mg-hydrochlorothiazide 6.25 mg tablet Previous Rx's ?Medication ?Instructions ?Recorded aspirin 81 mg tablet,delayed 81 mg PO DAILY #90 tabs 08/03/23 release lisinopril 40 mg tablet 40 mg PO DAILY #90 tabs 08/16/24 Allergies Allergy/AdvReac Type Severity Reaction Status Date / Time amlodipine Allergy Intermediate Flushing Verified 10/05/24 21:12 amoxicillin AdvReac Unknown Verified 10/05/24 21:12 Review of Systems Review of Systems All other systems are reviewed and are negative Constitutional: Reports as per HPI and Reports no additional constitutional complaints Eyes: Reports as per HPI and Reports no additional eye complaints Reports system reviewed and no additional complaints, except as documented Cardiovascular: Reports as per HPI and Reports no additional cardiovascular complaints Respiratory: Reports as per HPI and Reports no additional respiratory complaints Gastrointestinal: Reports as per HPI and Reports no additional gastrointestinal complaints Genitourinary: Reports no additional female genitourinary complaints Musculoskeletal: Reports no additional musculoskeletal complaints Skin/Breast: Reports system reviewed and no additional complaints, except as docu Psychiatric: Reports no additional psychiatric complaints Endocrine: Reports no additional endocrine complaints Hematologic/Lymphatic: Reports no additional hematologic/lymphatic complaints Allergic/Immunologic: Reports no additional allergic/immunologic complaints Reports system reviewed and no additional complaints, except as documented and Reports Abnormal speech present PMFSH Past Medical History Medical History Eczema Obesity Hypertension PTSD (post-traumatic stress disorder) Depression Anxiety Polydrug abuse Diabetes Surgical History History of appendectomy Family History Family History Father Hypertension Mother No problems noted. Social History Social History Household Members: Other Housing: Homeless Do you presently have visiting nurse or other home services: No Alcohol intake: current Alcohol intake frequency: holidays/special occasions only Patient Tobacco Use Status: Current everyday Tobacco user Cigarettes Per Day: 2 e-Cigarette/Vaping Use: Never Used Advance Directives: No Advance Directives Information Provided: Yes service: No Current occupational status: unemployed Cognitive needs: No Hearing needs: No Vision needs: No Physical Exam ED Vital Signs: Vital Signs - 24 hr 10/05/24 21:10 10/05/24 23:19 Temperature 98.2 F 98.6 F Pulse Rate 82 85 Respiratory Rate 18 18 Blood Pressure 176/81 H 156/78 H Pulse Oximetry 98 98 Oxygen Delivery Method Room Air Room Air BMI result Body Mass Index 32.1 Vital signs have been reviewed and appear to be correct. Blood pressure elevated. Heart rate normal. Respiratory rate normal. Temperature normal. Oxygen saturation normal. Appearance: Alert. Oriented X3. No acute distress. Head: Normal external exam. Normocephalic. Atraumatic. No [place] signs noted. No raccoon eyes noted Eyes: PERRLA. EOMI. Conjunctiva and sclera normal. Eyelids normal. ENT: TM's Normal. Pharynx normal. Uvula midline. Moist mucous membranes. No trismus noted. No drooling noted. No muffled voice noted. Neck: Normal inspection. Neck supple. FROM. No adenopathy. Thyroid Normal. No meningeal signs. No neck mass noted. CVS: Normal heart rate and rhythm. Heart sound normal. No murmurs noted. Pulses normal throughout. Respiratory: No respiratory distress. Painless inspiration. Breath sounds normal. No wheezes/rales/rhonchi noted. Chest nontender. No accessory muscle usage noted or decreased air movement noted. Abdomen: Soft and nontender. Bowel sounds normal in all 4 quadrants. No distention noted. No organomegaly noted. No visible injury noted. Back: Left CVA tenderness. Full range of motion noted. Skin: Skin warm and dry. Normal skin color. Normal skin turgor. No rashes/lesions/lacerations noted. Extremities: No lower extremity edema. Extremities exhibit normal range of motion. Extremities nontender. Neuro: Oriented X 3. Cranial nerve exam: II-XII are grossly intact No motor deficit. No sensory deficit. Reflexes normal. Course Reevaluation(s) Reevaluation #1: Left flank pain secondary to left sub capsular renal hematoma a unknown etiology, stable H&H, case was discussed with Dr. Webster earlier when the patient was in the ED today recommended to be admitted in observation. Time: 01:00 Medical Decision Making Differential Diagnosis Differential Diagnoses: The differential diagnosis associated with the presentation includes (Pyelonephritis, renal colic, UTI, electrolyte derangement, intra-abdominal bleed, severe anemia, pain management.) Admission/Observation Consideration of admission/observation: Escalation of care including admission/observation considered Consult Healthcare Provider Management of the patient was discussed with: Hospitalist (Dr. Bonilla) Lab Data MDM Lab Attestation statement: I reviewed the patient's lab results. Independent Interpretation I performed an independent interpretation of an: CT Scan (Abdomen pelvis with IV contrast:Left renal subcapsular hemorrhage measuring up to 1.8 cm in thickness. The subcapsular hemorrhage is isodense to a 3.0 cm exophytic lesion at the lower pole, which may represent a hemorrhagic cyst or neoplasm. Follow-up is recommended. ) Radiology Impression Discussion of test interpretation with radiology: I have reviewed the radiologist's reading. Discharge Plan Discharge Clinical Impression: Acute left flank pain, Hematoma of kidney, left, closed Patient Disposition: Admitted As Inpatient Prescriptions: No Action aspirin 81 mg tablet,delayed release (DR/EC) 81 mg PO DAILY Qty: 90 1RF lisinopril 40 mg tablet 40 mg PO DAILY Qty: 90 1RF bisoprolol-hydrochlorothiazide 5-6.25 mg tablet 1 tab PO DAILY Print Language: Kiswahili
[2024-10-06 00:37] LABS: MANUAL DIFF FLAG NO
[2024-10-06] MEDS: HYDROmorphone HCl 1 MG/ML SYRINGE IVPUSH ×2 (00:40→02:01)
[2024-10-06 00:41] LABS: Basophils Absolute Auto 0.1 X10*3/uL (0.0-0.2); Basophils Percent Auto 0.4 % (0-2); Eosinophils Absolute Auto 0.1 X10*3/uL (0.0-0.4); Eosinophils Percent Auto 0.5 % (0-4); Hematocrit 40.9 % (42.0-52.0); Hemoglobin 14.1 g/dl (14.0-18.0); Imm Gran Abs Auto 0.24 X10*3/uL (0.00-0.03); Imm Gran Pct Auto 1.5 % (0.0-0.4); Lymphocytes Percent Auto 12.5 % (20-40); Mean Corpuscular HGB Conc 34.5 g/dl (31.0-36.0); Mean Corpuscular Hemoglobin 29.3 pg (27.0-33.0); Mean Platelet Volume 11.4 fL (9.4-12.4); Monocytes Absolute Auto 1.2 X10*3/uL (0.1-1.2); Monocytes Percent Auto 7.1 % (2-11); Neutrophils Absolute Auto 12.6 x10*3/uL (2.0-8.3); Platelet Count 194 X10*3/uL (160-400); Red Blood Count 4.81 X10*6/uL (4.60-5.80); Red Cell Distribution Width 12.4 % (11.0-16.0); White Blood Count 16.2 X10*3/uL (4.8-10.8)
--- NOTE | 2024-10-06 00:44 | PC.NURSE ---
Medicated per Nov, Iv place in right hand, Notified NEVAEH Guzman
--- NOTE | 2024-10-06 01:24 | PC.NURSE ---
Reassessed pain level, pt reports no relief, notified provider and NEVAEH Guzman
--- NOTE | 2024-10-06 02:27 | PM.IMHP ---
History of Present Illness Date of Service: 10/06/24 Chief Complaint: Abdominal pain This is a 43-year-old male with pertinent history of polysubstance use disorder, asthma not on home oxygen, mood disorder including PTSD/generalized anxiety disorder/major depressive disorder, hypertension who presents to the emergency department for evaluation of left flank pain. Patient was seen earlier in the day and admitted by hospitalist team for conservative management of left renal subscapular hematoma. Patient left against medical advice after admission. Patient presents back to the ER due to ongoing left flank pain which is progressive, nonradiating and without any relieving factors. He states he is willing to stay in the hospital this time. No fever, chills, nausea, vomiting, chest pain, palpitations, shortness of breath, changes in urinary or bowel habits. In the emergency department, patient given IV opiates for analgesia. Review of Systems Constitutional: Constitutional: Reports no additional constitutional complaints Cardiovascular: Cardiovascular: Reports no additional cardiovascular complaints Respiratory: Respiratory: Reports no additional respiratory complaints Gastrointestinal: Gastrointestinal: Reports abdominal pain Genitourinary: Genitourinary: Reports no additional male genitourinary complaints [facility] Medical History Eczema Obesity Hypertension PTSD (post-traumatic stress disorder) Depression Anxiety Polydrug abuse Diabetes Family History Father Hypertension Mother No problems noted. Surgical History History of appendectomy Social History Household Members: Other Housing: Homeless Do you presently have visiting nurse or other home services: No Alcohol intake: current Alcohol intake frequency: holidays/special occasions only Patient Tobacco Use Status: Current everyday Tobacco user Cigarettes Per Day: 2 Smoked in Last 30 Days: Yes e-Cigarette/Vaping Use: Never Used Use of substances other than those prescribed or required for medical reasons: No Advance Directives: No Advance Directives Information Provided: Yes service: No Current occupational status: unemployed Cognitive needs: No Hearing needs: No Vision needs: No Meds Allergies Allergy/AdvReac Type Severity Reaction Status Date / Time amlodipine Allergy Intermediate Flushing Verified 10/05/24 21:12 amoxicillin AdvReac Unknown Verified 10/05/24 21:12 Active Medications: Current Medications Acetaminophen (Acetaminophen 325 Mg Tablet) 650 mg PO Q6H PRN PRN Reason: Pain, Mild 1-3,fever,headache Calcium Carbonate (Calcium Carbonate 750 Mg Tab.Chew) 750 mg PO Q4H PRN PRN Reason: Heartburn Magnesium Hydroxide (Milk Of Magnesia 30 Ml Oral.Susp) 30 ml PO DAILY PRN PRN Reason: Constipation Melatonin (Melatonin 3 Mg Tablet) 6 mg PO BEDTIME PRN PRN Reason: Insomnia Morphine Sulfate (Morphine Sulfate 4 Mg/Ml Cartridge) 4 mg IVPUSH Q4H PRN; Protocol PRN Reason: Pain, Severe (Pain Scale 7-10) Ondansetron HCl (Ondansetron Hcl 4 Mg/2 Ml Vial) 4 mg IVPUSH Q8H PRN PRN Reason: Nausea and Vomiting Oxycodone HCl (Oxycodone Hcl Immed Release 5 Mg Tablet) 5 mg PO Q6H [facility] Sodium Chloride (0.9 % Sodium Chloride Flush 3 Ml Syringe) 3 ml IVFLUSH QSHIFT [facility] Home Medications ?Medication ?Instructions ?Recorded ?Confirmed ?Last Taken ?Type bisoprolol 5 1 tab PO DAILY 10/05/24 10/05/24 10/04/24 History mg-hydrochlorothiazide 6.25 mg tablet Physical Exam Vital Signs and Narrative: Vital Signs: Last Vital Signs Temp 98.6 F 10/06/24 02:07 Pulse 86 10/06/24 02:07 Resp 18 10/06/24 02:07 BP 163/93 H 10/06/24 02:07 Pulse Ox 93 10/06/24 02:07 O2 Del Method Room Air 10/06/24 02:07 BMI result Body Mass Index 32.1 Middle-aged male lying in bed in no distress Neck supple, no JVD Regular rate and rhythm, S1-S2 heard Regular breath sounds bilaterally, no wheezing or crackles appreciated Abdomen with left flank tenderness present, no rigidity Patient is awake, alert and oriented to self, place, time and person ; no focal motor deficit Psych: Anxious No pedal edema Results Labs 10/06/24 00:34 Labs: Laboratory Results - last 24 hr 10/06/24 00:34 MCV 85.0 MCH 29.3 MCHC 34.5 RDW 12.4 Plt Count 194 MPV 11.4 Immature Gran % (Auto) 1.5 H Neut % (Auto) 78.0 H Lymph % (Auto) 12.5 L [place] % (Auto) 7.1 Eos % (Auto) 0.5 Baso % (Auto) 0.4 Lymph # (Auto) 2.0 [place] # (Auto) 1.2 Eos # (Auto) 0.1 Baso # (Auto) 0.1 Abs Immat Gran (auto) 0.24 H Absolute Neuts (auto) 12.6 H Absolute Nucleated RBC 0.000 Nucleated RBC % (auto) 0.0 Assessment and Plan (1) Intractable abdominal pain: Status: Acute (2) Renal hemorrhage, left: Status: Acute Plan This is a 43-year-old male with pertinent history of polysubstance use disorder, asthma not on home oxygen, mood disorder including PTSD/generalized anxiety disorder/major depressive disorder, hypertension who presents to the emergency department for evaluation of left flank pain. #. Left renal subscapular hematoma: Will admit patient with scheduled and p.r.n. opiates for analgesia. Urology consulted. Closely monitor H&H. #. Leukocytosis, reactive #. Hypertension: Continue home antihypertensives #. Asthma: No exacerbation on admission. Continue home inhalers #. Mood disorder: No homicidal or suicidal ideation on admission Med rec pending DVT prophylaxis: Mechanical Full code Quality Stroke Does the patient have a stroke diagnosis?: No VTE Prior VTE?: No VTE Risk Level:: Medical - moderate - high VTE Device Contraindication: N/A - Device Ordered VTE Drug Contraindication: Treatment Not Indicated
[2024-10-06] MEDS: oxyCODONE HCl Immed Release 5 MG TABLET PO ×3 (03:41→14:56)
[2024-10-06] MEDS: LORazepam 1 MG TABLET PO (03:41)
--- NOTE | 2024-10-06 03:57 | PC.NURSE ---
medicated per nov, Notified NEVAEH Guzman
[2024-10-06 05:54] LABS: Hematocrit 40.9 % (42.0-52.0); Mean Corpuscular HGB Conc 34.2 g/dl (31.0-36.0); Mean Corpuscular Volume 84.9 fL (80.0-98.0); Mean Platelet Volume 11.8 fL (9.4-12.4); Platelet Count 208 X10*3/uL (160-400); Red Blood Count 4.82 X10*6/uL (4.60-5.80); Red Cell Distribution Width 12.4 % (11.0-16.0); White Blood Count 14.6 X10*3/uL (4.8-10.8)
[2024-10-06] MEDS: Morphine Sulfate 4 MG/ML CARTRIDGE IVPUSH ×4 (06:03→23:42)
[2024-10-06 06:09] LABS: Anion Gap 14 (12-20); Blood Urea Nitrogen 15 mg/dL (9-16); Calcium 8.4 mg/dL (8.4-10.2); Carbon Dioxide 23 mmol/L (22-29); Chloride 106 mmol/L (96-108); Creatinine Clr Calc Pharmacy 146.6; Estimated Glomerular Filt Rate > 60; Glucose Random 143 mg/dL (60-115); Potassium 3.9 mmol/L (3.3-5.1); Sodium 139 mmol/L (135-145)
--- NOTE | 2024-10-06 06:20 | PC.NURSE ---
Pt now agreeable for cardiac monitoring. Medicated for 10/10 pain. effectiveness pending
--- NOTE | 2024-10-06 07:00 | PC.NURSE ---
Report taken from NEVAEH Guzman
--- NOTE | 2024-10-06 09:43 | MHC.CM.PN ---
Pt is homeless, he said he lives in a tent in the [facility]. He said he has been to shelters before and will not go again, and that there is no one that he can stay with. His PCP is Elaine Vaughan. HCP discussed, he declined to complete. He does not use DME. DCP: TBD. CM to follow for DC needs.
--- NOTE | 2024-10-06 10:09 | PHA.MEDREC ---
Pharmacy Consult ? Medication Reconciliation Pharmacy has completed the medication reconciliation. Patient knew medications
[2024-10-06] MEDS: lisinopriL 40 MG TABLET PO (10:30)
--- NOTE | 2024-10-06 15:30 | PM.EVENT ---
Event Note Date of Service: 10/06/24 Event Note: This patient is seen and examined by the hospitalist team this morning Seen and examined again As left flank pain . Physical exam and assessment and plan coordinated in H&P Agree with the plan in addition: Left-sided subscapular renal hematoma H&H stable Monitor H&H closely,pain meds adjsuted,also bowel regimen( colace and miralex added) Time Spent With Patient Time: Total time managing care of this patient today ____ minutes.
[2024-10-06] MEDS: oxyCODONE HCl Immed Release 5 MG TABLET 10 MG PO ×2 (15:54→20:39)
[2024-10-06] MEDS: polyethylene glycoL 3350 17 GM POWD.PACK PO (15:55)
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
[2024-10-06] MEDS: Lactated Ringers 1,000 ML 100 ML IVCONT (18:30)
--- NOTE | 2024-10-06 19:26 | MHC.EDTECH ---
This Pct assumed care of Patient at 1900 ,vitals taken Patient up ambulating to bathroom .
[2024-10-06] MEDS: Metoprolol Tartrate 25 MG TABLET PO (20:39)
[2024-10-06] MEDS: Docusate Sodium 100 MG CAPSULE PO (20:41)
[2024-10-06] MEDS: 0.9 % Sodium Chloride Flush 3 ML SYRINGE IVFLUSH (23:46)
[2024-10-07] VITALS (7 sets, daily range): BP systolic 140–171; BP diastolic 80–92; PULSE 78–93; RESP 14–18; TEMP 36.5–38; O2SAT 96–98; BMI 32.1
[2024-10-07] MEDS: oxyCODONE HCl Immed Release 5 MG TABLET 10 MG PO ×4 (03:30→20:56)
[2024-10-07] MEDS: Morphine Sulfate 4 MG/ML CARTRIDGE IVPUSH ×3 (04:44→22:00)
[2024-10-07] MEDS: Docusate Sodium 100 MG CAPSULE PO ×2 (07:51→20:56)
[2024-10-07] MEDS: lisinopriL 40 MG TABLET PO (07:51)
[2024-10-07] MEDS: polyethylene glycoL 3350 17 GM POWD.PACK PO (07:52)
[2024-10-07] MEDS: hydroCHLOROthiazide 12.5 MG TABLET 6.25 MG PO (07:52)
[2024-10-07] MEDS: Metoprolol Tartrate 25 MG TABLET PO ×2 (07:58→20:56)
[2024-10-07] MEDS: 0.9 % Sodium Chloride Flush 3 ML SYRINGE IVFLUSH (08:10)
[2024-10-07 09:20] LABS: Hemoglobin 13.8 g/dl (14.0-18.0)
[2024-10-07] MEDS: LORazepam 1 MG TABLET PO (10:43)
[2024-10-07] MEDS: Lidocaine 4 % Patch ADH..PATCH 1 PATCH TRANSDERMA (10:43)
--- NOTE | 2024-10-07 13:38 | HO.PM.IMPN ---
Subjective Subjective Date of Service: 10/07/24 Interval History: Left renal subscapular hematoma Review of Systems left flank area pain-seems somewhat improving but still has significant pain Physical Exam Vital Signs: Vital Signs: Last Vital Signs Temp 97.7 F 10/07/24 11:34 Pulse 80 10/07/24 11:34 Resp 14 10/07/24 11:34 BP 148/87 H 10/07/24 11:34 Pulse Ox 96 10/07/24 11:34 O2 Del Method Room Air 10/07/24 11:34 BMI result Body Mass Index 32.1 Middle-aged male lying in bed in no distress. Regular rate and rhythm, S1-S2 heard chest : air entry seems fair ,no rales or wheezing Abdomen with left flank tenderness present, no rigidity neuro: aox3 , nonfocal Psych: Anxious Objective Data Active Medications Acetaminophen (Acetaminophen 325 Mg Tablet) 650 mg PO Q6H PRN PRN Reason: Pain, Mild 1-3,fever,headache Calcium Carbonate (Calcium Carbonate 750 Mg Tab.Chew) 750 mg PO Q4H PRN PRN Reason: Heartburn Docusate Sodium (Docusate Sodium 100 Mg Capsule) 100 mg PO BID [facility] Last Admin: 10/07/24 07:51 Dose: 100 mg Documented By: MAYO Hydrochlorothiazide (Hydrochlorothiazide 12.5 Mg Tablet) 6.25 mg PO DAILY [facility] Last Admin: 10/07/24 07:52 Dose: 6.25 mg Documented By: MAYO Lactated Ringer's (Lr) 1,000 mls @ 100 mls/hr IVCONT .Q10H [facility] Last Admin: 10/07/24 05:19 Dose: Not Given Documented By: SORAYA Non-Admin Reason: Patient Refused Lidocaine (Lidocaine 4 % Patch Adh..Patch) 1 patch TRANSDERMA DAILY [facility]; Protocol Last Admin: 10/07/24 10:43 Dose: 1 patch Documented By: MAYO Lisinopril (Lisinopril 40 Mg Tablet) 40 mg PO DAILY [facility]; Protocol Last Admin: 10/07/24 07:51 Dose: 40 mg Documented By: MAYO Magnesium Hydroxide (Milk Of Magnesia 30 Ml Oral.Susp) 30 ml PO DAILY PRN PRN Reason: Constipation Melatonin (Melatonin 3 Mg Tablet) 6 mg PO BEDTIME PRN PRN Reason: Insomnia Metoprolol Tartrate (Metoprolol Tartrate 25 Mg Tablet) 25 mg PO BID [facility] Last Admin: 10/07/24 07:58 Dose: 25 mg Documented By: MAYO Morphine Sulfate (Morphine Sulfate 4 Mg/Ml Cartridge) 4 mg IVPUSH Q3H PRN; Protocol PRN Reason: Pain, Severe (Pain Scale 7-10) Last Admin: 10/07/24 08:05 Dose: 4 mg Documented By: MAYO Ondansetron HCl (Ondansetron Hcl 4 Mg/2 Ml Vial) 4 mg IVPUSH Q8H PRN PRN Reason: Nausea and Vomiting Oxycodone HCl (Oxycodone Hcl Immed Release 5 Mg Tablet) 10 mg PO Q6H [facility] Last Admin: 10/07/24 07:52 Dose: 10 mg Documented By: MAYO Polyethylene Glycol (Polyethylene Glycol 3350 17 Gm Powd.Pack) 17 gm PO DAILY [facility] Last Admin: 10/07/24 07:52 Dose: 17 gm Documented By: MAYO Sodium Chloride (0.9 % Sodium Chloride Flush 3 Ml Syringe) 3 ml IVFLUSH QSHIFT [facility] Last Admin: 10/07/24 08:10 Dose: 3 ml Documented By: MAYO Labs 10/07/24 09:03 10/06/24 05:21 Assessment and Plan (1) Hematoma of kidney, left, closed: Status: Acute Assessment and Plan: 43-year-old male with pertinent history of polysubstance use disorder, asthma not on home oxygen, mood disorder including PTSD/generalized anxiety disorder/major depressive disorder, hypertension who presents to the emergency department for evaluation of left flank pain. Left renal subscapular hematoma: h/h stable in 13.8 range pain slightly improving cotninue iv morphine ,po oxycocdone bowel regimen Urology ceval noted-Manage conservatively for pain management and hematocrit stability ,Six week follow-up outpatient Urology for repeat imaging Leukocytosis, reactive: improving Hypertension: Continue home antihypertensives Asthma: No exacerbation on admission. Continue home inhalers Mood disorder: No homicidal or suicidal ideation on admission ongoing need :Left renal subscapular hematoma and intractable pain: need iv morphine ,h/h monitering Quality Stroke Does the patient have a stroke diagnosis?: No VTE Prior VTE?: No VTE Risk Level:: Medical - moderate - high VTE Device Contraindication: N/A - Device Ordered VTE Drug Contraindication: Treatment Not Indicated
[2024-10-07] MEDS: Lactated Ringers 1,000 ML 100 ML IVCONT (14:43)
[2024-10-08] VITALS (11 sets, daily range): BP systolic 130–173; BP diastolic 70–100; PULSE 75–85; RESP 15–20; TEMP 36.1–37.1; O2SAT 95–99
[2024-10-08] MEDS: Morphine Sulfate 4 MG/ML CARTRIDGE IVPUSH ×4 (01:05→20:02)
[2024-10-08] MEDS: Acetaminophen 325 MG TABLET 650 MG PO (01:06)
[2024-10-08] MEDS: Melatonin 3 MG TABLET 6 MG PO ×2 (01:06→21:50)
[2024-10-08] MEDS: Lactated Ringers 1,000 ML 100 ML IVCONT ×2 (01:56→09:07)
[2024-10-08] MEDS: oxyCODONE HCl Immed Release 5 MG TABLET 10 MG PO ×4 (03:50→20:48)
[2024-10-08] MEDS: Lidocaine 4 % Patch ADH..PATCH 1 PATCH TRANSDERMA (08:49)
[2024-10-08] MEDS: lisinopriL 40 MG TABLET PO (08:49)
[2024-10-08] MEDS: Metoprolol Tartrate 25 MG TABLET PO ×2 (08:49→20:02)
[2024-10-08] MEDS: Docusate Sodium 100 MG CAPSULE PO ×2 (08:50→20:02)
[2024-10-08] MEDS: hydroCHLOROthiazide 12.5 MG TABLET 6.25 MG PO (08:50)
[2024-10-08 11:07] LABS: Hematocrit 37.7 % (42.0-52.0); Hemoglobin 13.1 g/dl (14.0-18.0)
--- NOTE | 2024-10-08 12:35 | P.PNUR_ITS ---
Subjective Subjective Date of Service: 10/08/24 Interval history: FU left kidney hematoma, pt states pain is less. Physical Exam 2 Vital Signs: Vital Signs: Last Vital Signs Temp 98.6 F 10/08/24 11:36 Pulse 76 10/08/24 11:36 Resp 19 10/08/24 11:36 BP 154/81 H 10/08/24 11:36 Pulse Ox 96 10/08/24 11:36 O2 Del Method Room Air 10/08/24 11:36 BMI result Body Mass Index 32.1 Urology Results Labs 10/08/24 10:45 10/06/24 05:21 Labs: Laboratory Results - last 24 hr 10/08/24 10:45 Hgb 13.1 L Hct 37.7 L Progress Note: A&P Assessment and plan (1) Hematoma of kidney, left, closed: Status: Acute (2) Flank pain: Status: Acute Plan okay for dc from urology standpoint, no heavy lifting over 20 pounds for 4 weeks Time Spent With Patient Time: Total time managing care of this patient today ____ minutes. Progress Note: Quality Stroke Does the patient have a stroke diagnosis?: No
--- NOTE | 2024-10-08 13:04 | P.PNIM_ITS ---
Subjective Subjective Date of Service: 10/08/24 Interval History: Left renal subscapular hematoma Review of Systems left flank area pain-seems somewhat improving but still has significant pain Physical Exam 2 Vital Signs: Vital Signs: Last Vital Signs Temp 98.6 F 10/08/24 11:36 Pulse 76 10/08/24 11:36 Resp 19 10/08/24 11:36 BP 154/81 H 10/08/24 11:36 Pulse Ox 96 10/08/24 11:36 O2 Del Method Room Air 10/08/24 11:36 BMI result Body Mass Index 32.1 Middle-aged male lying in bed in no distress. Regular rate and rhythm, S1-S2 heard chest : air entry seems fair ,no rales or wheezing Abdomen with left flank tenderness present, no rigidity neuro: aox3 , nonfocal Psych: Anxious Objective Data Active Medications Acetaminophen (Acetaminophen 325 Mg Tablet) 650 mg PO Q6H PRN PRN Reason: Pain, Mild 1-3,fever,headache Last Admin: 10/08/24 01:06 Dose: 650 mg Documented By: ANA PAULA Calcium Carbonate (Calcium Carbonate 750 Mg Tab.Chew) 750 mg PO Q4H PRN PRN Reason: Heartburn Docusate Sodium (Docusate Sodium 100 Mg Capsule) 100 mg PO BID [facility] Last Admin: 10/08/24 08:50 Dose: 100 mg Documented By: MARI Hydrochlorothiazide (Hydrochlorothiazide 12.5 Mg Tablet) 6.25 mg PO DAILY [facility] Last Admin: 10/08/24 08:50 Dose: 6.25 mg Documented By: MARI Lidocaine (Lidocaine 4 % Patch Adh..Patch) 1 patch TRANSDERMA DAILY [facility]; Protocol Last Admin: 10/08/24 08:49 Dose: 1 patch Documented By: MARI Lisinopril (Lisinopril 40 Mg Tablet) 40 mg PO DAILY [facility]; Protocol Last Admin: 10/08/24 08:49 Dose: 40 mg Documented By: MARI Magnesium Hydroxide (Milk Of Magnesia 30 Ml Oral.Susp) 30 ml PO DAILY PRN PRN Reason: Constipation Melatonin (Melatonin 3 Mg Tablet) 6 mg PO BEDTIME PRN PRN Reason: Insomnia Last Admin: 10/08/24 01:06 Dose: 6 mg Documented By: ANA PAULA Metoprolol Tartrate (Metoprolol Tartrate 25 Mg Tablet) 25 mg PO BID [facility] Last Admin: 10/08/24 08:49 Dose: 25 mg Documented By: MARI Morphine Sulfate (Morphine Sulfate 4 Mg/Ml Cartridge) 4 mg IVPUSH Q3H PRN; Protocol PRN Reason: Pain, Severe (Pain Scale 7-10) Last Admin: 10/08/24 09:07 Dose: 4 mg Documented By: MARI Ondansetron HCl (Ondansetron Hcl 4 Mg/2 Ml Vial) 4 mg IVPUSH Q8H PRN PRN Reason: Nausea and Vomiting Oxycodone HCl (Oxycodone Hcl Immed Release 5 Mg Tablet) 10 mg PO Q6H [facility] Last Admin: 10/08/24 08:50 Dose: 10 mg Documented By: MARI Polyethylene Glycol (Polyethylene Glycol 3350 17 Gm Powd.Pack) 17 gm PO DAILY [facility] Last Admin: 10/08/24 08:56 Dose: Not Given Documented By: MARI Non-Admin Reason: Patient Refused Sodium Chloride (0.9 % Sodium Chloride Flush 3 Ml Syringe) 3 ml IVFLUSH QSHIFT [facility] Last Admin: 10/08/24 07:10 Dose: Not Given Documented By: MARI Non-Admin Reason: Previously Administered Labs 10/08/24 10:45 10/06/24 05:21 Assessment and Plan (1) Hematoma of kidney, left, closed: Status: Acute Assessment and Plan: 43-year-old male with pertinent history of polysubstance use disorder, asthma not on home oxygen, mood disorder including PTSD/generalized anxiety disorder/major depressive disorder, hypertension who presents to the emergency department for evaluation of left flank pain. Left renal subscapular hematoma: h/h stable in 13.1/37.7 pain slightly improving cotninue iv morphine ,po oxycocdone bowel regimen Urology ceval noted-Manage conservatively for pain management and hematocrit stability ,Six week follow-up outpatient Urology for repeat imaging Leukocytosis, reactive: improving Hypertension: Continue home antihypertensives Asthma: No exacerbation on admission. Continue home inhalers Mood disorder: No homicidal or suicidal ideation on admission ongoing need :Left renal subscapular hematoma and intractable pain: need iv morphine ,h/h monitering Quality Stroke Does the patient have a stroke diagnosis?: No VTE Prior VTE?: No VTE Risk Level:: Medical - moderate - high VTE Device Contraindication: N/A - Device Ordered VTE Drug Contraindication: Treatment Not Indicated
[2024-10-08 15:26] LABS: Glucose, Whole Blood 152 mg/dL (60-115)
[2024-10-08] MEDS: Insulin Lispro 100 UNIT/ML 3 ML VIAL SUBCUT (15:54)
[2024-10-08] MEDS: hydrALAZINE HCl 20 MG/ML VIAL 5 MG IVPUSH (16:04)
--- NOTE | 2024-10-08 18:34 | PC.NURSE ---
md informed of pt's pain and elevated bp. pt had no POC orders in place despite having DM hx. was informed.
[2024-10-08 20:08] LABS: Glucose, Whole Blood 109 mg/dL (60-115)
[2024-10-08] MEDS: Acetaminophen 1,000 MG/100 ML PIGGYBACK 400 MG IV (20:49)
[2024-10-08] MEDS: HYDROmorphone HCl 1 MG/ML SYRINGE IVPUSH (21:49)
[2024-10-09] VITALS (9 sets, daily range): BP systolic 139–160; BP diastolic 71–94; PULSE 63–80; RESP 16–20; TEMP 36.1–37.1; O2SAT 94–98
[2024-10-09] MEDS: oxyCODONE HCl Immed Release 5 MG TABLET 10 MG PO ×4 (03:47→21:28)
[2024-10-09] MEDS: HYDROmorphone HCl 1 MG/ML SYRINGE IVPUSH ×4 (03:52→22:54)
[2024-10-09] MEDS: Lidocaine 4 % Patch ADH..PATCH 1 PATCH TRANSDERMA (07:36)
[2024-10-09] MEDS: Docusate Sodium 100 MG CAPSULE PO ×2 (07:36→21:29)
[2024-10-09] MEDS: polyethylene glycoL 3350 17 GM POWD.PACK PO (07:36)
[2024-10-09] MEDS: 0.9 % Sodium Chloride Flush 3 ML SYRINGE IVFLUSH ×3 (07:38→21:29)
[2024-10-09 07:57] LABS: Glucose, Whole Blood 117 mg/dL (60-115)
[2024-10-09 09:21] LABS: Hematocrit 35.5 % (42.0-52.0); Hemoglobin 12.5 g/dl (14.0-18.0)
[2024-10-09] MEDS: lisinopriL 40 MG TABLET PO (09:38)
[2024-10-09] MEDS: hydroCHLOROthiazide 12.5 MG TABLET PO (09:38)
[2024-10-09] MEDS: Metoprolol Tartrate 25 MG TABLET PO ×2 (09:41→21:29)
--- NOTE | 2024-10-09 11:04 | P.PNIM_ITS ---
Subjective Subjective Date of Service: 10/09/24 Interval History: flank pain Review of Systems still has significant pain no new symptoms Physical Exam 2 Vital Signs: Vital Signs: Last Vital Signs Temp 97.4 F 10/09/24 07:43 Pulse 79 10/09/24 07:43 Resp 20 10/09/24 07:43 BP 156/92 H 10/09/24 07:43 Pulse Ox 97 10/09/24 07:43 O2 Del Method Room Air 10/09/24 07:43 BMI result Body Mass Index 32.1 Middle-aged male lying in bed in no distress. Regular rate and rhythm, S1-S2 heard chest : air entry seems fair ,no rales or wheezing Abdomen with left flank tenderness present, no rigidity neuro: aox3 , nonfocal Psych: Anxious Objective Data Active Medications Calcium Carbonate (Calcium Carbonate 750 Mg Tab.Chew) 750 mg PO Q4H PRN PRN Reason: Heartburn Docusate Sodium (Docusate Sodium 100 Mg Capsule) 100 mg PO BID [facility] Last Admin: 10/09/24 07:36 Dose: 100 mg Documented By: AUSTIN Glucose (Glucose Gel 15 Gm Gel..Gram.) 15 gm PO Q15M PRN; Protocol PRN Reason: per Hypoglycemia Standing Ord. Hydralazine HCl (Hydralazine Hcl 20 Mg/Ml Vial) 5 mg IVPUSH Q4H PRN; Protocol PRN Reason: Htn Last Admin: 10/08/24 16:04 Dose: 5 mg Documented By: MARI Hydrochlorothiazide (Hydrochlorothiazide 12.5 Mg Tablet) 12.5 mg PO DAILY [facility] Last Admin: 10/09/24 09:38 Dose: 12.5 mg Documented By: AUSTIN Hydromorphone HCl (Hydromorphone Hcl 1 Mg/Ml Syringe) 1 mg IVPUSH Q3H PRN; Protocol PRN Reason: Pain, Severe (Pain Scale 7-10) Last Admin: 10/09/24 07:35 Dose: 1 mg Documented By: AUSTIN Dextrose (D10) 250 mls @ 750 mls/hr IV Q15M PRN; Protocol PRN Reason: per Hypoglycemia Standing Ord. Insulin Human Lispro (Insulin Lispro 100 Unit/Ml 3 Ml Vial) 0 unit SUBCUT QIDACHS [facility]; Protocol Last Admin: 10/09/24 08:15 Dose: Not Given Documented By: AUSTIN Non-Admin Reason: No Insulin Coverage Lidocaine (Lidocaine 4 % Patch Adh..Patch) 1 patch TRANSDERMA DAILY [facility]; Protocol Last Admin: 10/09/24 07:36 Dose: 1 patch Documented By: AUSTIN Lisinopril (Lisinopril 40 Mg Tablet) 40 mg PO DAILY [facility]; Protocol Last Admin: 10/09/24 09:38 Dose: 40 mg Documented By: AUSTIN Magnesium Hydroxide (Milk Of Magnesia 30 Ml Oral.Susp) 30 ml PO DAILY PRN PRN Reason: Constipation Melatonin (Melatonin 3 Mg Tablet) 6 mg PO BEDTIME PRN PRN Reason: Insomnia Last Admin: 10/08/24 21:50 Dose: 6 mg Documented By: ZHANG Metoprolol Tartrate (Metoprolol Tartrate 25 Mg Tablet) 25 mg PO BID [facility] Last Admin: 10/09/24 09:41 Dose: 25 mg Documented By: AUSTIN Ondansetron HCl (Ondansetron Hcl 4 Mg/2 Ml Vial) 4 mg IVPUSH Q8H PRN PRN Reason: Nausea and Vomiting Oxycodone HCl (Oxycodone Hcl Immed Release 5 Mg Tablet) 10 mg PO Q6H [facility] Last Admin: 10/09/24 09:38 Dose: 10 mg Documented By: AUSTIN Polyethylene Glycol (Polyethylene Glycol 3350 17 Gm Powd.Pack) 17 gm PO DAILY [facility] Last Admin: 10/09/24 07:36 Dose: 17 gm Documented By: AUSTIN Sodium Chloride (0.9 % Sodium Chloride Flush 3 Ml Syringe) 3 ml IVFLUSH QSHIFT [facility] Last Admin: 10/09/24 07:38 Dose: 3 ml Documented By: AUSTIN Labs 10/09/24 09:16 10/06/24 05:21 Labs: Laboratory Results - last 24 hr 10/08/24 10/08/24 10/09/24 15:22 20:03 07:45 POC Glucose 152 H 109 117 H Assessment and Plan (1) Hematoma of kidney, left, closed: Status: Acute Assessment and Plan: 43-year-old male with pertinent history of polysubstance use disorder, asthma not on home oxygen, mood disorder including PTSD/generalized anxiety disorder/major depressive disorder, hypertension who presents to the emergency department for evaluation of left flank pain. Left renal subscapular hematoma: h/h stable in 13.1/37.7 pain slightly improving cotninue iv morphine ,po oxycocdone bowel regimen Urology ceval noted-Manage conservatively for pain management and hematocrit stability ,Six week follow-up outpatient Urology for repeat imaging Leukocytosis, reactive: improving Hypertension: Continue home antihypertensives Asthma: No exacerbation on admission. Continue home inhalers Mood disorder: No homicidal or suicidal ideation on admission ongoing need :Left renal subscapular hematoma and intractable pain: need iv morphine ,h/h monitering Quality Stroke Does the patient have a stroke diagnosis?: No VTE Prior VTE?: No VTE Risk Level:: Medical - moderate - high VTE Device Contraindication: N/A - Device Ordered VTE Drug Contraindication: Treatment Not Indicated
[2024-10-09 11:15] LABS: Glucose, Whole Blood 132 mg/dL (60-115)
[2024-10-09 16:29] LABS: Glucose, Whole Blood 123 mg/dL (60-115)
[2024-10-09 20:57] LABS: Glucose, Whole Blood 105 mg/dL (60-115)
[2024-10-10] MEDS: oxyCODONE HCl Immed Release 5 MG TABLET 10 MG PO ×2 (03:15→08:11)
[2024-10-10 03:44] VITALS: BP 140/83; PULSE 96; RESP 17; TEMP 36.3; O2SAT 98
[2024-10-10 07:35] VITALS: BP 152/73; PULSE 74; RESP 18; TEMP 36.3; O2SAT 94
[2024-10-10 07:35] LABS: Glucose, Whole Blood 132 mg/dL (60-115)
[2024-10-10] MEDS: polyethylene glycoL 3350 17 GM POWD.PACK PO (08:10)
[2024-10-10] MEDS: Lidocaine 4 % Patch ADH..PATCH 1 PATCH TRANSDERMA (08:11)
[2024-10-10] MEDS: lisinopriL 40 MG TABLET PO (08:11)
[2024-10-10] MEDS: Metoprolol Tartrate 25 MG TABLET PO (08:11)
[2024-10-10] MEDS: hydroCHLOROthiazide 12.5 MG TABLET PO (08:11)
[2024-10-10] MEDS: Docusate Sodium 100 MG CAPSULE PO (08:11)
[2024-10-10] MEDS: 0.9 % Sodium Chloride Flush 3 ML SYRINGE IVFLUSH (08:17)
--- NOTE | 2024-10-10 10:38 | MHC.CM.PN ---
Per MD rounds patient medically cleared for dc home self care. Patient continues to decline [facility] placement, plans to return to previous living arrangement (tent set up in [facility]) via private transport. Appropriate for dc lounge. RN and aware.
--- NOTE | 2024-10-10 11:19 | P.DS_ITS ---
DS: Providers Provider Date of Service: 10/10/24 Date of admission: 10/09/24 11:37 Date of discharge: 10/10/24 Primary care physician: Tory Vaughan MD Consults: 10/06/24 02:05 Consult to Urology Routine Consulting Provider: [facility] [place] [facility] Reason for consultation: Left renal subscapular hematoma Attending physician on discharge: Lupe Hunter Discharging clinician: Lupe Hunter DS: Diagnosis Discharge Diagnosis (1) Hematoma of kidney, left, closed: Status: Acute DS: Summary Hospital Course Hospital Course: HPI:43-year-old male with pertinent history of polysubstance use disorder, asthma not on home oxygen, mood disorder including PTSD/generalized anxiety disorder/major depressive disorder, hypertension who presents to the emergency department for evaluation of left flank pain. Patient was seen earlier in the day and admitted by hospitalist team for conservative management of left renal subscapular hematoma. Patient left against medical advice after admission. Patient presents back to the ER due to ongoing left flank pain which is progressive, nonradiating and without any relieving factors. He states he is willing to stay in the hospital this time. No fever, chills, nausea, vomiting, chest pain, palpitations, shortness of breath, changes in urinary or bowel habits. In the emergency department, patient given IV opiates for analgesia. hospital course: 43-year-old male with pertinent history of polysubstance use disorder, asthma not on home oxygen, mood disorder including PTSD/generalized anxiety disorder/major depressive disorder, hypertension who presents to the emergency department for evaluation of left flank pain-patient was started on conservative management with IV pain meds, H&H monitored, bowel regimen, leukocytosis likely reactive to hematoma. With above supportive care-patient seems to be improved significantly, going home with p.o. oxycodone, bowel regimen. Monitor CBC out patiently within 1 week with PCP. Patient is to follow-up out patiently with Urology in 3-4 weeks for repeat imaging. Patient was also strongly advised for no heavy lifting, strenuous exercises, contact sports. Hypertension: Blood pressure was fluctuating secondary to the pain seems improving now the pain is better controlled, patient will get a pain medication oxycodone, also is blood pressure medication can be uptitrated as needed for blood pressure out patiently. If any new symptom worsening abdominal pain, fever or any new symptoms-go to the nearest emergency room. plan: Monitor CBC. Follow-up with Urology outpatient.Patient is to follow-up out patiently with Urology in 3-4 weeks for repeat imaging. Above management discussed with the patient in detail length he understand in agreement with the above plan, time spent 40 minute. Time Attestation Total time managing care of this patient today: 40 mintues. Discharge Coordination Time (in mins): 40 min Quality: Safe Use of Opioids Does Pt have an Active Cancer Diagnosis on the Problem List?: No Quality: Stroke Does the patient have a stroke diagnosis?: No Physical Exam Vital Signs: Vital Signs: Last Vital Signs Temp 97.4 F 10/10/24 07:35 Pulse 74 10/10/24 07:35 Resp 18 10/10/24 07:35 BP 152/73 H 10/10/24 07:35 Pulse Ox 94 10/10/24 07:35 O2 Del Method Room Air 10/10/24 07:35 BMI result Body Mass Index 32.1 Appearance: Alert.? Oriented X3.? not in distress.? cvs: rrr, [id number]. res: clear to auscultation ,no rhonchii or wheezing abd: no rebound or guarding ,nt, bs present. Gu-flank pain seems to be improved significantly ext pulses present , no cyanosis . neuro: axo3 , nonfocal. DS: Data Data Completed and Pending Labs on day of discharge: Laboratory Results - last 24 hr 10/09/24 10/09/24 10/10/24 16:04 20:39 07:30 POC Glucose 123 H 105 132 H Discharge Plan Discharge Anticipated Discharge Date/Time: 10/10/24 11:12 Patient Disposition: Home, Self-Care Discharge Diagnosis: Left renal subscapular hematoma Referrals: Jaspreet Lindsey MD [Physician] - 1 Week Tory Vaughan MD [Primary Care Provider] - 1 Week Discharge Medications: New acetaminophen 325 mg Tablet 650 mg PO Q6H PRN (Reason: Pain, Mild 1-3,Fever,Headache) Qty: 20 0RF lidocaine [Lidocaine Pain Relief] 4 % Adhesive Patch,Medicated 1 patch transdermal DAILY Qty: 7 0RF Protocol: Apply to: Apply to: Pain area polyethylene glycol 3350 17 gram Powder In Packet 17 g PO DAILY Qty: 30 0RF docusate sodium 100 mg Capsule 100 mg PO BID Qty: 30 0RF oxycodone 5 mg Tablet 10 mg PO Q6H PRN (Reason: pain) Qty: 20 0RF Rx Instructions: Partial Fill upon patient request. Continued metformin 500 mg Tablet Extended Release 24 Hr 500 mg PO DAILY bisoprolol-hydrochlorothiazide 5-6.25 mg tablet 1 tab PO DAILY Qty: 90 0RF lisinopril 40 mg tablet 40 mg PO DAILY Qty: 90 1RF Discontinued aspirin 81 mg tablet,delayed release (DR/EC) 81 mg PO DAILY Qty: 90 1RF Discharge Orders: Discharge Order (Routine); Ordered 10/10/24 Ordered By: Lupe Hunter Diet: Advance to usual diet Activity on Discharge: As tolerated Stand Alone Forms: Patient Portal Discharge page Print Language: Yakut Care Plan Goals: 43-year-old male with pertinent history of polysubstance use disorder, asthma not on home oxygen, mood disorder including PTSD/generalized anxiety disorder/major depressive disorder, hypertension who presents to the emergency department for evaluation of left flank pain-patient was started on conservative management with IV pain meds, H&H monitored, bowel regimen, leukocytosis likely reactive to hematoma. With above supportive care-patient seems to be improved significantly, going home with p.o. oxycodone, bowel regimen. Monitor CBC out patiently within 1 week with PCP. Patient is to follow-up out patiently with Urology in 3-4 weeks for repeat imaging. Patient was also strongly advised for no heavy lifting, strenuous exercises, contact sports. Hypertension: Blood pressure was fluctuating secondary to the pain seems improving now the pain is better controlled, patient will get a pain medication oxycodone, also is blood pressure medication can be uptitrated as needed for blood pressure out patiently. If any new symptom worsening abdominal pain, fever or any new symptoms-go to the nearest emergency room. Health Concerns: As above. Plan of Treatment: As above. Monitor CBC. Follow-up with Urology outpatient. Assessment: as above. Discharge Date/Time: 10/10/24 11:34
== END 2024-10-10 11:34 | disposition home or self-care (01) | DRG 468 ==
LOC: HO.ED 10-06 00:36 → HO.EDOVER 10-06 07:22 → HO.IMC 10-06 20:58 → HO.EDOVER 10-07 10:19 → HO.IMC 10-07 10:19 → HO.S3 10-09 02:44
PROVIDERS: Admitting Provider Student in an Organized Health Care Education/Training Program; Emergency Provider Emergency Medicine; PCP Internal Medicine; Visit Provider Internal Medicine
DX: N28.89 Other specified disorders of kidney and ureter (principal); F17.210 Nicotine dependence, cigarettes, uncomplicated; F41.1 Generalized anxiety disorder; I10 Essential (primary) hypertension; N28.1 Cyst of kidney, acquired; J45.909 Unspecified asthma, uncomplicated; F43.10 Post-traumatic stress disorder, unspecified; Z71.6 Tobacco abuse counseling; Z79.899 Other long term (current) drug therapy
CPT/HCPCS: 36415; 80048; 82947; 85014; 85018; 85025; 85027; 99285; J0131; J0360; J1171; J2270; J7120

== ENCOUNTER → 2024-10-06 02:03 | Outpatient (BNV) | payer OTHER, SELFPAY | PROVIDERS: Admitting Provider Student in an Organized Health Care Education/Training Program; Emergency Provider Emergency Medicine; Visit Provider Student in an Organized Health Care Education/Training Program | DX: S37.012A Minor contusion of left kidney, initial encounter (principal) | CPT/HCPCS: 99222; 99231; 99232; 99499 ==

== ENCOUNTER → 2024-10-06 02:03 | Outpatient (BNV) | payer OTHER, SELFPAY | PROVIDERS: Admitting Provider Student in an Organized Health Care Education/Training Program; Emergency Provider Emergency Medicine; PCP Internal Medicine; Visit Provider Urology | DX: N28.89 Other specified disorders of kidney and ureter (principal); S37.012A Minor contusion of left kidney, initial encounter | CPT/HCPCS: 99222 ==

== ENCOUNTER 2024-10-14 12:57 | Emergency (ER) | payer OTHER, SELFPAY | END 2024-10-14 14:19 | disposition left against medical advice (07) | PROVIDERS: Emergency Provider Emergency Medicine; PCP Internal Medicine | DX: F19.10 Other psychoactive substance abuse, uncomplicated (principal); Z53.21 Procedure and treatment not carried out due to patient leaving prior to being seen by health care provider ==

== ENCOUNTER 2024-10-16 05:32 | Emergency (ER) | payer OTHER, SELFPAY ==
[2024-10-16 05:37] VITALS: BP 168/91; BP 181/115; PULSE 88; PULSE 91; RESP 20; TEMP 36.8; O2SAT 98; O2SAT 99; BMI 27.0
--- NOTE | 2024-10-16 05:50 | PC.NURSE ---
Pt left from treatment room immediately after triage/vitals.
== END 2024-10-16 06:08 | disposition left against medical advice (07) ==
PROVIDERS: Emergency Provider Emergency Medicine
DX: R10.2 Pelvic and perineal pain (principal)
CPT/HCPCS: 99281

== ENCOUNTER → 2024-10-21 12:21 | Outpatient (BNVA) | payer OTHER, SELFPAY | PROVIDERS: PCP Internal Medicine; Visit Provider Internal Medicine | DX: E11.9 Type 2 diabetes mellitus without complications (principal); I10 Essential (primary) hypertension; N28.89 Other specified disorders of kidney and ureter; D72.829 Elevated white blood cell count, unspecified | CPT/HCPCS: 96127; 99212 ==

== ENCOUNTER 2024-10-28 12:58 | Outpatient (AMB) | payer OTHER, SELFPAY ==
--- NOTE | 2024-10-28 13:36 | A.OFFVIS_ITS ---
Intake [place] [facility] [place] Intake Note: Patient is present for [facility] [place] RENAL HEMORRHAGIC CYST Urology Medication:NONE Antibiotic Allergy:AMOXICILLIN Blood Thinner:NONE Steam Shovel Oiler Required: No Allergies amlodipine Allergy (Intermediate, Verified 10/28/24 13:39) Flushing amoxicillin Adverse Reaction (Verified 10/28/24 13:39) Unknown HPI Comments Details: Dung is a pleasant male. He is seen for the following urologic conditions - hemorrhagic renal cyst Hospital presentation Reported waking with left-sided flank pain CT evaluation suggests left renal subcapsular hematoma from underlying cyst Patient initially left hospital and re-presented with progressive flank pain nonradiating without relieving factors Admitted for evaluation and pain management Hematocrit 40.9 Suggest pain management and watch hematocrit for stability Three-month follow-up renal imaging FORMERLY [facility], [facility] Medical History Eczema Obesity Hypertension PTSD (post-traumatic stress disorder) Depression Anxiety Polydrug abuse Diabetes Surgical History History of appendectomy Family History Father Hypertension Mother No problems noted. Social History Household Members: None Housing: Homeless Housing Other:: homeless Do you presently have visiting nurse or other home services: No Alcohol intake: current Alcohol intake frequency: holidays/special occasions only Patient Tobacco Use Status: Current someday Tobacco user Tobacco use type: Cigarette Cigarettes Per Day: 2 Years Smoked: 3 e-Cigarette/Vaping Use: Never Used Second Hand Smoke Exposure: No service: No Current occupational status: unemployed Cognitive needs: No Hearing needs: No Vision needs: No Review of Systems Const Denies chills and Denies fever(s) Card Reports no additional complaints and Denies syncope Resp Denies cough GI Denies abdominal pain and Denies heartburn Reports as per HPI and Denies change in libido Neuro Denies syncope Psych Denies change in libido Endo Denies change in libido Physical Exam Const General: cooperative, healthy appearing, comfortable and no acute distress Orientation/consciousness: patient oriented x3 HEENT Face and sinus: Yes normal facial exam Mouth: moist mucous membranes Neck Neck: Yes normal visual inspection, Yes full ROM and Yes trachea midline Chest Chest palpation & inspection: normal inspection of the chest Resp Effort & Inspection: normal respiratory effort, able to speak in complete sentences and no respiratory distress GI Inspection: Yes normal to inspection Back/Spine/Pelvis Cervical Spine: normal cervical lordosis Thoracic/Lumbar Spine: thoracic and lumbar spine normal to inspection Skin General skin exam: no rashes or lesions noted Neuro General: patient oriented x3, gait normal, tone normal and moves all extremities Extrem General: Yes normal to inspection and Yes capillary refill normal Assessment & Plan Assessment & Plan (1) Renal hemorrhage, left: Comment: CT 10/03/2024 LEFT RENAL SUBCAPSULAR HEMORRHAGE 1.8 CM AND 3 CM ISODENSE EXOPHYTIC LESION QUESTION HEMORRHAGIC CYST OR NEOPLASM, patient referred to Urology Code(s): N28.89 - Other specified disorders of kidney and ureter Category: Medical Plan MRI three-month Orders: Orders MR abdomen wo/w con 3 Months S37.012A - Minor contusion of left kidney, initial encounter Medications: New hydromorphone (Dilaudid) Partial Fill upon patient request. 4 mg PO Q6H 30 days PRN 90 tabs 0RF pain S37.012A - Minor contusion of left kidney, initial encounter Patient Instructions: Imaging studies, laboratory and physical exam results were discussed and reviewed in detail. No major barriers to patient understanding were identified. An opportunity to ask questions regarding the treatment plan was provided. All questions were answered. The patient expressed understanding and agreement with the above treatment plan. The patient is aware they should contact our office by phone for worsening of their current condition or the appearance of new urologic symptoms. Compliance is encouraged with any medications and followup testing that is ordered. It is a privilege to participate in the urologic care of your patient. If you have any questions or concerns regarding treatment for the above conditions, or other urologic issues, please do not hesitate to contact me. The office telephone contact is [phone]. This note is constructed using voice recognition software. While every effort has been made to ensure accuracy fuel cell test engineer errors may have been included. Yours sincerely, Dr Shiva Webster MD, [facility] - Urology Providers of Expert, Compassionate Care for the Genitourinary System Coding Level of Care Code Est Pt Level 4 (63532) Diagnoses Renal hemorrhage, left N28.89
== END 2024-10-28 14:23 | disposition home or self-care (01) ==
PROVIDERS: PCP Internal Medicine; Visit Provider Urology
DX: N28.89 Other specified disorders of kidney and ureter (principal)
CPT/HCPCS: 99214

== ENCOUNTER → 2024-10-28 12:58 | Outpatient (BNVA) | payer OTHER, SELFPAY | PROVIDERS: PCP Internal Medicine; Visit Provider Urology | DX: N28.89 Other specified disorders of kidney and ureter (principal) | CPT/HCPCS: 99212 ==

== ENCOUNTER 2024-12-30 09:50 | Outpatient (REF) | payer OTHER, SELFPAY ==
--- NOTE | ~2024-12-30 | MR_ITS ---
EXAMINATION: MRI Abdomen without and with contrast HISTORY: S37.012A - Minor contusion of left kidney, initial encounter COMPARISON: Correlation is made with a contrast-enhanced CT of the abdomen dated 10/05/2024. TECHNIQUE: Axial in and out of phase T1-weighted gradient echo, axial diffusion weighted, and axial and coronal HASTE T2 with fat saturation images were obtained through the abdomen. Subsequently, fat suppressed axial and coronal T1-weighted images were obtained after the intravenous administration of 10 mL Gadavist. The examination was terminated after the 3 minute postcontrast examination due to patient nausea. FINDINGS: The examination is markedly degraded by patient motion. There is diffuse loss of signal intensity within the liver on opposed phase images, consistent with steatosis. No definite liver mass is seen. The hepatic and portal veins are patent. The gallbladder, spleen, pancreas, and adrenals are unremarkable. The right kidney demonstrates multiple cysts. There is a 2.6 cm cyst at the upper pole which is hyperintense on T1 and T2-weighted images, consistent with hemorrhagic or proteinaceous content. An additional 3.6 cm septated cyst is noted at the lower pole. On the left, there is a small residual subcapsular fluid collection posteriorly, which is T1 and T2 hyperintense and demonstrates a hemosiderin rim, consistent with a small residual subcapsular hematoma. There are multiple left renal simple cysts, the largest of which is at the lower pole measuring 2.3 cm. There is a 3.3 cm complex lesion at the lower pole of the left kidney which is hyperintense on T1 and T2-weighted images, consistent with internal hemorrhage or proteinaceous content, and demonstrates heterogeneous areas of decreased T2 signal intensity centrally. Evaluation for enhancement is extremely limited due to patient motion and limited subtraction images. No retroperitoneal lymphadenopathy or ascites is identified in the upper abdomen. The visualized bones demonstrate normal signal intensity. MR/MR abdomen wo/w con IMPRESSION: 1. Markedly limited examination due to patient motion and incomplete postcontrast images, as well as lack of adequate subtraction images. 2. Small residual left renal subcapsular hematoma. 3. 3.3 cm complex lesion at the lower pole of the left kidney with internal hemorrhagic or proteinaceous content. A mass is not excluded on the basis of this examination, and follow-up is recommended. 4. Hemorrhagic versus proteinaceous 2.6 cm right upper pole renal cyst. 5. Hepatic steatosis. Electronically signed by: Jose G Thacker MD 12/30/2024 12:15 PM EDT RP
[2024-12-30 10:12] LABS: MANUAL DIFF FLAG NO
[2024-12-30 10:32] LABS: Basophils Absolute Auto 0.1 X10*3/uL (0.0-0.2); Basophils Percent Auto 0.8 % (0-2); Eosinophils Absolute Auto 0.3 X10*3/uL (0.0-0.4); Eosinophils Percent Auto 2.7 % (0-4); Hematocrit 43.6 % (42.0-52.0); Hemoglobin 14.7 g/dl (14.0-18.0); Imm Gran Abs Auto 0.06 X10*3/uL (0.00-0.03); Imm Gran Pct Auto 0.6 % (0.0-0.4); Lymphocytes Absolute Auto 2.7 X10*3/uL (1.2-4.9); Lymphocytes Percent Auto 26.5 % (20-40); Mean Corpuscular HGB Conc 33.7 g/dl (31.0-36.0); Mean Corpuscular Hemoglobin 28.4 pg (27.0-33.0); Mean Corpuscular Volume 84.3 fL (80.0-98.0); Mean Platelet Volume 11.9 fL (9.4-12.4); Monocytes Absolute Auto 0.9 X10*3/uL (0.1-1.2); Monocytes Percent Auto 9.2 % (2-11); Neutrophils Absolute Auto 6.1 x10*3/uL (2.0-8.3); Neutrophils Percent Auto 60.2 % (45-73); Platelet Count 236 X10*3/uL (160-400); Red Blood Count 5.17 X10*6/uL (4.60-5.80); Red Cell Distribution Width 12.9 % (11.0-16.0); White Blood Count 10.1 X10*3/uL (4.8-10.8)
[2024-12-30 10:35] LABS: Appearance Urine Clear; Color Urine Dark Yellow; Glucose Urine UA Negative (Negative); Leukocyte Esterase Urine Trace (Negative); Nitrite Urine Negative (Negative); PH 5.5 (5.0-9.0); Specific Gravity - Urine >= 1.030 (1.005-1.025); UMIC TRIGGER UA YES; Urine Blood Negative (Negative); Urine Ketones Trace mg/dL (Negative); Urine Protein 30 (1+) mg/dL (Neg-Trace)
[2024-12-30 10:42] LABS: Bacteria Urine None Seen (None Seen); RBC Urine 0-2 /HPF (0-2); Squamous Epithelial Cell Urine 0-2 /HPF (0-2)
[2024-12-30 11:19] LABS: Estimated Average Glucose 148 mg/dL; Hemoglobin A1c % 6.8 % (<6.0); Total Hemoglobin (HGBA1C) 3878.4691 umol/L
[2024-12-30] MEDS: gadobutroL 10 ML VIAL IVPUSH (11:50)
[2024-12-30 12:18] LABS: Alanine Aminotransferase 47 U/L (0-40); Alkaline Phosphatase 60 U/L (39-117); Anion Gap 13 (12-20); Aspartate Amino Transferase 23 U/L (5-37); Bilirubin Total 0.3 mg/dL (0.0-1.0); Blood Urea Nitrogen 16 mg/dL (9-16); Calcium 8.7 mg/dL (8.4-10.2); Carbon Dioxide 25 mmol/L (22-29); Chloride 108 mmol/L (96-108); Estimated Glomerular Filt Rate > 60; Glucose Random 175 mg/dL (60-115); Potassium 3.8 mmol/L (3.3-5.1); Sodium 142 mmol/L (135-145); Total Protein 6.7 g/dL (6.5-8.0)
== END 2024-12-30 09:51 | disposition home or self-care (01) ==
LOC: HO.MRI 09:50
PROVIDERS: Absent Provider Internal Medicine; PCP Internal Medicine; Visit Provider Urology
DX: I10 Essential (primary) hypertension (principal); E11.9 Type 2 diabetes mellitus without complications; D72.829 Elevated white blood cell count, unspecified; R10.9 Unspecified abdominal pain; S37.012A Minor contusion of left kidney, initial encounter
CPT/HCPCS: 36415; 74183; 80053; 81001; 83036; 85025; 87086; A9585

== ENCOUNTER → 2024-12-30 10:18 | Outpatient (BNV) | payer OTHER, SELFPAY | PROVIDERS: Absent Provider Internal Medicine; PCP Internal Medicine; Visit Provider Radiology Diagnostic Radiology | DX: S37.012A Minor contusion of left kidney, initial encounter (principal) | CPT/HCPCS: 74183 ==

== ENCOUNTER 2025-01-06 08:45 | Outpatient (AMB) | payer OTHER, SELFPAY ==
--- NOTE | 2025-01-06 09:03 | A.OFFVIS_ITS ---
Intake Visit Reasons: 3m/MRI Intake Note: Patient is present for 3M/MRI Urology Medication:NONE Antibiotic Allergy:AMOXICILLIN Blood Thinner:NONE Watch Manufacturing Supervisor Required: No Allergies amlodipine Allergy (Intermediate, Verified 01/06/25 09:04) Flushing amoxicillin Adverse Reaction (Verified 01/06/25 09:04) Unknown HPI Comments Details: Dung is a pleasant male. He is seen for the following urologic conditions - hemorrhagic renal cyst - background diabetic Hemorrhagic renal cyst Original presentation through emergency room CT evaluation suggests left renal subcapsular hematoma from underlying cyst Patient initially left hospital and re-presented with progressive flank pain nonradiating without relieving factors Admitted for evaluation and pain management Follow-up imaging. Creatinine 0.9 hematocrit 43.6 MRI - 3.3 cm complex lesion at the lower pole of the left kidney with internal hemorrhagic or proteinaceous content. A mass is not excluded on the basis of th is examination, and follow-up is recommended Recommend follow-up CT 12 months PFSH Medical History Eczema Obesity Hypertension PTSD (post-traumatic stress disorder) Depression Anxiety Polydrug abuse Diabetes Surgical History History of appendectomy Family History Father Hypertension Mother No problems noted. Social History Household Members: None Housing: Homeless Housing Other:: homeless Do you presently have visiting nurse or other home services: No Alcohol intake: current Alcohol intake frequency: holidays/special occasions only Patient Tobacco Use Status: Current someday Tobacco user Tobacco use type: Cigarette Cigarettes Per Day: 2 Years Smoked: 3 e-Cigarette/Vaping Use: Never Used Second Hand Smoke Exposure: No service: No Current occupational status: unemployed Cognitive needs: No Hearing needs: No Vision needs: No Review of Systems Const Denies chills and Denies fever(s) Card Reports no additional complaints and Denies syncope Resp Denies cough GI Denies abdominal pain and Denies heartburn Reports as per HPI and Denies change in libido Neuro Denies syncope Psych Denies change in libido Endo Denies change in libido Physical Exam Const General: cooperative, healthy appearing, comfortable and no acute distress Orientation/consciousness: patient oriented x3 HEENT Face and sinus: Yes normal facial exam Mouth: moist mucous membranes Neck Neck: Yes normal visual inspection, Yes full ROM and Yes trachea midline Chest Chest palpation & inspection: normal inspection of the chest Resp Effort & Inspection: normal respiratory effort, able to speak in complete sentences and no respiratory distress GI Inspection: Yes normal to inspection Back/Spine/Pelvis Cervical Spine: normal cervical lordosis Thoracic/Lumbar Spine: thoracic and lumbar spine normal to inspection Skin General skin exam: no rashes or lesions noted Neuro General: patient oriented x3, gait normal, tone normal and moves all extremities Extrem General: Yes normal to inspection and Yes capillary refill normal Assessment & Plan Assessment & Plan (1) Complex renal cyst: Code(s): N28.1 - Cyst of kidney, acquired Category: Medical Plan Plan 1. 3 cm complex renal lesion through scheduled CT imaging in 12 months. Stability in current imaging suggests no immediate intervention is necessary. Renal cysts will be monitored alongside. Emphasis on dietary changes to aid diabetic control. No acute renal complications suggesting the need for urgent care were identified.: Discussion Notes I discussed with the patient the MRI findings, which showed a 3.3 cm complex lesion on the left lower pole of the kidney, emphasizing the current stability and the lack of concerning features. I addressed concerns about the potential for underlying masses, reassuring the patient that the imaging showed no such issues. The recommendation is for a follow-up CT scan in 12 months to continue monitoring the lesion. Management of diabetes through dietary adjustments was also discussed, highlighting the significant impact dietary changes can have on weight and blood sugar control, rather than activity alone. Detailed dietary recommendations were provided. Follow-up was agreed upon by both parties with an understanding of the importance of continued surveillance and lifestyle modifications. Patient Instructions - Schedule a CT scan of the kidneys in 12 months for follow-up monitoring. - Make dietary changes to help with weight management and diabetes control, focusing on reducing sugary drinks and carbohydrates. - Increase the intake of vegetables, ensuring these form at least half of each meal. - Consider a breakfast routine of two eggs and two pieces of [id number] gaines with no bread. - Monitor for any new or worsening symptoms and report them promptly. - Ensure regular monitoring of blood glucose levels to maintain diabetic control. Orders: Orders CT abdomen wo/w IV con 12 Months N28.1 - Cyst of kidney, acquired Patient Instructions: This note is constructed using voice recognition software. While every effort has been made to ensure accuracy therapeutic recreation specialist errors may have been included. Imaging studies, laboratory and physical exam results were discussed and reviewed in detail. No major barriers to patient understanding were identified. An opportunity to ask questions regarding the treatment plan was provided. All questions were answered. The patient expressed understanding and agreement with the above treatment plan. The patient is aware they should contact our office by phone for worsening of their current condition or the appearance of new urologic symptoms. Compliance is encouraged with any medications and followup testing that is ordered. It is a privilege to participate in the urologic care of your patient. If you have any questions or concerns regarding treatment for the above conditions, or other urologic issues, please do not hesitate to contact me. The office telephone contact is [phone]. Sincerely, Dr Shiva Webster MD, [facility] - Urology Compassionate Specialist Care for the Genitourinary System Coding Level of Care Code Est Pt Level 4 (48501) Diagnoses Complex renal cyst N28.1
== END 2025-01-06 09:55 | disposition home or self-care (01) ==
LOC: HO.HUSH 08:46
PROVIDERS: PCP Internal Medicine; Visit Provider Urology
DX: N28.1 Cyst of kidney, acquired (principal)
CPT/HCPCS: 99214

== ENCOUNTER → 2025-01-06 08:45 | Outpatient (BNVA) | payer OTHER, SELFPAY | PROVIDERS: PCP Internal Medicine; Visit Provider Urology | DX: N28.1 Cyst of kidney, acquired (principal) | CPT/HCPCS: 99212 ==

== ENCOUNTER 2025-01-16 16:35 | Emergency (ER) | payer OTHER, SELFPAY ==
[2025-01-16 17:06] VITALS: BP 191/105; PULSE 92; RESP 18; TEMP 36.7; O2SAT 97; BMI 41.9
--- NOTE | 2025-01-16 17:09 | ED.GENADULT ---
HPI - General Adult General Chief complaint: General Medical Stated complaint: high blood sugars Time Seen by Provider: 01/16/25 18:16 Related Data Previous Rx's ?Medication ?Instructions ?Recorded acetaminophen 325 mg tablet 650 mg (2 x 325 mg) PO Q6H PRN 10/08/24 Pain, Mild 1-3,Fever,Headache #20 tabs docusate sodium 100 mg capsule 100 mg PO BID #30 caps 10/08/24 lidocaine 4 % topical patch 1 patch transdermal DAILY #7 ea 10/08/24 (Lidocaine Pain Relief) polyethylene glycol 3350 17 gram 17 g PO DAILY #30 ea 10/08/24 oral powder packet gabapentin 300 mg capsule 300 mg PO BEDTIME #90 caps 10/21/24 hydromorphone 4 mg tablet 4 mg PO Q6H PRN pain 30 days #90 10/28/24 (Dilaudid) tabs blood sugar diagnostic (FreeStyle #100 ea 12/21/24 Lite Strips) blood-glucose meter (FreeStyle #1 ea 12/21/24 Lite Meter kit) lancets 28 gauge (FreeStyle #100 ea 12/21/24 Lancets) bisoprolol 5 2 tab PO DAILY #180 tabs 01/14/25 mg-hydrochlorothiazide 6.25 mg tablet lisinopril 40 mg tablet 40 mg PO DAILY #90 tabs 01/14/25 metformin 500 mg tablet,extended 500 mg PO BID 90 days #180 tabs 01/14/25 release 24 hr Allergies Allergy/AdvReac Type Severity Reaction Status Date / Time amlodipine Allergy Intermediate Flushing Verified 01/16/25 17:08 amoxicillin AdvReac Unknown Verified 01/16/25 17:08 PMFSH Past Medical History Medical History Eczema Obesity Hypertension PTSD (post-traumatic stress disorder) Depression Anxiety Polydrug abuse Diabetes Surgical History History of appendectomy Family History Family History Father Hypertension Mother No problems noted. Social History Social History Household Members: None Housing: Homeless Housing Other:: homeless Do you presently have visiting nurse or other home services: No Alcohol intake: current Alcohol intake frequency: holidays/special occasions only Patient Tobacco Use Status: Current someday Tobacco user Tobacco use type: Cigarette Cigarettes Per Day: 2 Years Smoked: 3 e-Cigarette/Vaping Use: Never Used Second Hand Smoke Exposure: No Advance Directives: No Advance Directives Information Provided: No service: No Current occupational status: unemployed Cognitive needs: No Hearing needs: No Vision needs: No Physical Exam ED Vital Signs: Vital Signs - 24 hr 01/16/25 17:06 01/16/25 19:38 01/16/25 22:03 Temperature 98.1 F 97.6 F Pulse Rate 92 69 78 Respiratory Rate 18 16 19 Blood Pressure 191/105 H 150/83 H 146/91 H Pulse Oximetry 97 96 97 Oxygen Delivery Method Room Air Room Air Room Air BMI result Body Mass Index 41.9 Course Course Course Narrative: This is a rapid medical exam performed by Sai Leone NP: Additional HPI, ROS, PE not included below will be deferred to primary provider. Patient is a 44-year-old male with history of hemorrhagic renal cyst, HTN, DM usually diet controlled, polysubstance use, anxiety, depression, PTSD, obesity presenting to the ED with report of elevated glucose levels. Was sent over from PCP office. Has been on bedrest due to renal cyst, Medications Administered Discontinued Medications Generic Name Dose Route Start Last Admin Trade Name Freq PRN Reason Stop Dose Admin Sodium Chloride 1,000 mls @ 999 mls/hr 01/16/25 19:45 01/16/25 20:56 Ns IV 01/16/25 20:45 Infused .Q1H1M LEIGHANN Infusion Sodium Chloride 1,000 mls @ 999 mls/hr 01/16/25 19:45 01/16/25 20:56 Ns IV 01/16/25 20:45 Infused .Q1H1M LEIGHANN Infusion Medical Decision Making Lab Data 01/16/25 17:27 01/16/25 17:27 Labs: Lab Results 01/16/25 01/16/25 01/16/25 Range/Units 17:27 17:31 19:10 WBC 11.5 H (4.8-10.8) X10*3/uL RBC 5.17 (4.60-5.80) X10*6/uL Hgb 15.0 (14.0-18.0) g/dl Hct 43.1 (42.0-52.0) % MCV 83.4 (80.0-98.0) fL MCH 29.0 (27.0-33.0) pg MCHC 34.8 (31.0-36.0) g/dl RDW 12.7 (11.0-16.0) % Plt Count 259 (160-400) X10*3/uL MPV 11.4 (9.4-12.4) fL Immature Gran % (Auto) 0.4 (0.0-0.4) % Neut % (Auto) 66.3 (45-73) % Lymph % (Auto) 23.5 (20-40) % Duc[place]ne % (Auto) 7.5 (2-11) % Eos % (Auto) 1.5 (0-4) % Baso % (Auto) 0.8 (0-2) % Lymph # (Auto) 2.7 (1.2-4.9) X10*3/uL [place]ne # (Auto) 0.9 (0.1-1.2) X10*3/uL Eos # (Auto) 0.2 (0.0-0.4) X10*3/uL Baso # (Auto) 0.1 (0.0-0.2) X10*3/uL Abs Immat Gran (auto) 0.05 H (0.00-0.03) X10*3/uL Absolute Neuts (auto) 7.6 (2.0-8.3) x10*3/uL Absolute Nucleated RBC 0.000 (0.0-0.012) X10*3/uL Nucleated RBC % (auto) 0.0 (0.0-0.2) /100WBC VBG pH 7.40 (7.32-7.43) VBG pCO2 41 mmHg VBG pO2 48 mmHg VBG HCO3 26 (22-26) mmol/L VBG O2 Saturation 79.0 % VBG Base Excess 1.4 mmol/L Sodium 141 (135-145) mmol/L Potassium 3.6 (3.3-5.1) mmol/L Chloride 105 (96-108) mmol/L Carbon Dioxide 25 (22-29) mmol/L Anion Gap 15 (12-20) BUN 18 H (9-16) mg/dL Creatinine 1.05 (0.5-1.4) mg/dL Estim Creat Clear Calc 141.5 Estimated GFR > 60 Random Glucose 252 H (60-115) mg/dL Lactic Acid 2.2 H* (0.5-2.0) mmol/L Calcium 8.8 (8.4-10.2) mg/dL Magnesium 2.0 (1.6-2.6) mg/dL Total Bilirubin 0.3 (0.0-1.0) mg/dL AST 32 (5-37) U/L ALT 65 H (0-40) U/L Alkaline Phosphatase 68 (39-117) U/L Total Protein 7.0 (6.5-8.0) g/dL Albumin 4.2 (3.5-5.0) g/dL Beta-Hydroxybutyrate 0.16 (0.02-0.27) mmol/L Urine Color Yellow Urine Appearance Clear Urine pH 5.5 (5.0-9.0) Ur Specific [place] 1.025 (1.005-1.025) Urine Protein Negative (Neg-Trace) mg/dL Urine Glucose (UA) 250 H (Negative) mg/dL Urine Ketones Trace (Negative) mg/dL Urine Blood Negative (Negative) Urine Nitrite Negative (Negative) Ur Leukocyte Esterase Negative (Negative) 01/16/25 Range/Units 21:03 WBC (4.8-10.8) X10*3/uL RBC (4.60-5.80) X10*6/uL Hgb (14.0-18.0) g/dl Hct (42.0-52.0) % MCV (80.0-98.0) fL MCH (27.0-33.0) pg MCHC (31.0-36.0) g/dl RDW (11.0-16.0) % Plt Count (160-400) X10*3/uL MPV (9.4-12.4) fL Immature Gran % (Auto) (0.0-0.4) % Neut % (Auto) (45-73) % Lymph % (Auto) (20-40) % Duc[place]ne % (Auto) (2-11) % Eos % (Auto) (0-4) % Baso % (Auto) (0-2) % Lymph # (Auto) (1.2-4.9) X10*3/uL [place] # (Auto) (0.1-1.2) X10*3/uL Eos # (Auto) (0.0-0.4) X10*3/uL Baso # (Auto) (0.0-0.2) X10*3/uL Abs Immat Gran (auto) (0.00-0.03) X10*3/uL Absolute Neuts (auto) (2.0-8.3) x10*3/uL Absolute Nucleated RBC (0.0-0.012) X10*3/uL Nucleated RBC % (auto) (0.0-0.2) /100WBC VBG pH (7.32-7.43) VBG pCO2 mmHg VBG pO2 mmHg VBG HCO3 (22-26) mmol/L VBG O2 Saturation % VBG Base Excess mmol/L Sodium (135-145) mmol/L Potassium (3.3-5.1) mmol/L Chloride (96-108) mmol/L Carbon Dioxide (22-29) mmol/L Anion Gap (12-20) BUN (9-16) mg/dL Creatinine (0.5-1.4) mg/dL Estim Creat Clear Calc Estimated GFR Random Glucose (60-115) mg/dL Lactic Acid 1.7 (0.5-2.0) mmol/L Calcium (8.4-10.2) mg/dL Magnesium (1.6-2.6) mg/dL Total Bilirubin (0.0-1.0) mg/dL AST (5-37) U/L ALT (0-40) U/L Alkaline Phosphatase (39-117) U/L Total Protein (6.5-8.0) g/dL Albumin (3.5-5.0) g/dL Beta-Hydroxybutyrate (0.02-0.27) mmol/L Urine Color Urine Appearance Urine pH (5.0-9.0) Ur Specific [place] (1.005-1.025) Urine Protein (Neg-Trace) mg/dL Urine Glucose (UA) (Negative) mg/dL Urine Ketones (Negative) mg/dL Urine Blood (Negative) Urine Nitrite (Negative) Ur Leukocyte Esterase (Negative) Discharge Plan Discharge Clinical Impression: Acute hyperglycemia Patient Disposition: Home, Self-Care Instructions: Diabetic Hyperglycemia (ED) Prescriptions: No Action hydromorphone [Dilaudid] 4 mg tablet 4 mg PO Q6H PRN (Reason: pain) 30 Days Qty: 90 0RF Rx Instructions: Partial Fill upon patient request. (DME) blood-glucose meter [FreeStyle Lite Meter] Kit See Rx Instructions .Route Qty: 1 0RF Rx Instructions: Test blood sugar once a day (DME) FreeStyle Lite Strips Strip See Rx Instructions .Route Qty: 100 3RF Rx Instructions: Test blood sugar once a day (DME) lancets [FreeStyle Lancets] 28 gauge misc See Rx Instructions .Route Qty: 100 3RF Rx Instructions: Test blood sugar once a day bisoprolol-hydrochlorothiazide 5-6.25 mg tablet 2 tab PO DAILY Qty: 180 1RF lisinopril 40 mg tablet 40 mg PO DAILY Qty: 90 2RF metformin 500 mg tablet extended release 24 hr 500 mg PO BID 90 Days Qty: 180 2RF acetaminophen 325 mg Tablet 650 mg PO Q6H PRN (Reason: Pain, Mild 1-3,Fever,Headache) Qty: 20 0RF lidocaine [Lidocaine Pain Relief] 4 % Adhesive Patch,Medicated 1 patch transdermal DAILY Qty: 7 0RF Protocol: Apply to: Apply to: Pain area polyethylene glycol 3350 17 gram Powder In Packet 17 g PO DAILY Qty: 30 0RF docusate sodium 100 mg Capsule 100 mg PO BID Qty: 30 0RF gabapentin 300 mg capsule 300 mg PO BEDTIME Qty: 90 3RF Referrals: Tory Vaughan MD [Primary Care Provider] - 01/18/25 Print Language: Bruneian
--- NOTE | 2025-01-16 17:15 | ECG_ITS ---
Test Reason : abnormal labs Blood Pressure : */* mmHG Vent. Rate : 86 BPM Atrial Rate : 86 BPM P-R Int : 150 ms QRS Dur : 82 ms QT Int : 382 ms P-R-T Axes : 28 6 13 degrees QTcB Int : 457 ms Normal sinus rhythm Normal ECG When compared with ECG of 23-Mar-2024 10:27, No significant change was found Referred By: Ceci Leone Electronically Signed By: CHING NAJERA
[2025-01-16 17:30] LABS: MANUAL DIFF FLAG NO
[2025-01-16 17:37] LABS: Venous Blood Gas Refer to POC result
[2025-01-16 17:38] LABS: Basophils Absolute Auto 0.1 X10*3/uL (0.0-0.2); Basophils Percent Auto 0.8 % (0-2); Eosinophils Absolute Auto 0.2 X10*3/uL (0.0-0.4); Eosinophils Percent Auto 1.5 % (0-4); Hematocrit 43.1 % (42.0-52.0); Imm Gran Abs Auto 0.05 X10*3/uL (0.00-0.03); Imm Gran Pct Auto 0.4 % (0.0-0.4); Lymphocytes Absolute Auto 2.7 X10*3/uL (1.2-4.9); Lymphocytes Percent Auto 23.5 % (20-40); Mean Corpuscular HGB Conc 34.8 g/dl (31.0-36.0); Mean Corpuscular Volume 83.4 fL (80.0-98.0); Mean Platelet Volume 11.4 fL (9.4-12.4); Monocytes Absolute Auto 0.9 X10*3/uL (0.1-1.2); Monocytes Percent Auto 7.5 % (2-11); Neutrophils Absolute Auto 7.6 x10*3/uL (2.0-8.3); Neutrophils Percent Auto 66.3 % (45-73); Platelet Count 259 X10*3/uL (160-400); Red Blood Count 5.17 X10*6/uL (4.60-5.80); Red Cell Distribution Width 12.7 % (11.0-16.0); White Blood Count 11.5 X10*3/uL (4.8-10.8)
[2025-01-16 17:38] LABS: VBG Base Excess 1.4 mmol/L; VBG HCO3 26 mmol/L (22-26); VBG pCO2 41 mmHg; VBG pO2 48 mmHg
[2025-01-16 17:48] LABS: Beta-Hydroxybutyrate 0.16 mmol/L (0.02-0.27)
[2025-01-16 17:49] LABS: Alanine Aminotransferase 65 U/L (0-40); Albumin Level 4.2 g/dL (3.5-5.0); Alkaline Phosphatase 68 U/L (39-117); Anion Gap 15 (12-20); Aspartate Amino Transferase 32 U/L (5-37); Bilirubin Total 0.3 mg/dL (0.0-1.0); Blood Urea Nitrogen 18 mg/dL (9-16); Calcium 8.8 mg/dL (8.4-10.2); Carbon Dioxide 25 mmol/L (22-29); Chloride 105 mmol/L (96-108); Creatinine Clr Calc Pharmacy 141.5; Estimated Glomerular Filt Rate > 60; Glucose Random 252 mg/dL (60-115); Potassium 3.6 mmol/L (3.3-5.1); Sodium 141 mmol/L (135-145)
[2025-01-16 19:18] LABS: Appearance Urine Clear; Color Urine Yellow; Glucose Urine UA 250 mg/dL (Negative); Leukocyte Esterase Urine Negative (Negative); Nitrite Urine Negative (Negative); PH 5.5 (5.0-9.0); Specific Gravity - Urine 1.025 (1.005-1.025); Urine Blood Negative (Negative); Urine Ketones Trace mg/dL (Negative); Urine Protein Negative (Neg-Trace)
[2025-01-16 19:36] LABS: Lactic Acid 2.2 mmol/L (0.5-2.0)
[2025-01-16 19:38] VITALS: BP 150/83; PULSE 69; RESP 16; TEMP 36.4; O2SAT 96
[2025-01-16] MEDS: 0.9 % Sodium Chloride 1,000 ML 999 ML IV ×2 (19:52)
[2025-01-16 21:13] LABS: Reflex Lactate? Lactic Acid Added
[2025-01-16 21:28] LABS: Lactic Acid 1.7 mmol/L (0.5-2.0)
[2025-01-16 22:03] VITALS: BP 146/91; PULSE 78; RESP 19; O2SAT 97
--- NOTE | 2025-01-16 22:09 | ED_ITS ---
HPI - General Adult General Chief complaint: General Medical Stated complaint: high blood sugars Time Seen by Provider: 01/16/25 18:16 History of Present Illness HPI narrative: Patient is a 44-year-old male with a history of diabetes. Baseline is on metformin twice a day. Patient from home. History of hypertension. Presents today with having episodes of high sugar also elevated blood pressure there is no chest pain there is no diaphoresis. Patient has been compliant with his medications. Related Data Previous Rx's ?Medication ?Instructions ?Recorded acetaminophen 325 mg tablet 650 mg (2 x 325 mg) PO Q6H PRN 10/08/24 Pain, Mild 1-3,Fever,Headache #20 tabs docusate sodium 100 mg capsule 100 mg PO BID #30 caps 10/08/24 lidocaine 4 % topical patch 1 patch transdermal DAILY #7 ea 10/08/24 (Lidocaine Pain Relief) polyethylene glycol 3350 17 gram 17 g PO DAILY #30 ea 10/08/24 oral powder packet gabapentin 300 mg capsule 300 mg PO BEDTIME #90 caps 10/21/24 hydromorphone 4 mg tablet 4 mg PO Q6H PRN pain 30 days #90 10/28/24 (Dilaudid) tabs blood sugar diagnostic (FreeStyle #100 ea 12/21/24 Lite Strips) blood-glucose meter (FreeStyle #1 ea 12/21/24 Lite Meter kit) lancets 28 gauge (FreeStyle #100 ea 12/21/24 Lancets) bisoprolol 5 2 tab PO DAILY #180 tabs 01/14/25 mg-hydrochlorothiazide 6.25 mg tablet lisinopril 40 mg tablet 40 mg PO DAILY #90 tabs 01/14/25 metformin 500 mg tablet,extended 500 mg PO BID 90 days #180 tabs 01/14/25 release 24 hr Allergies Allergy/AdvReac Type Severity Reaction Status Date / Time amlodipine Allergy Intermediate Flushing Verified 01/16/25 17:08 amoxicillin AdvReac Unknown Verified 01/16/25 17:08 Review of Systems 2 Review of Systems: No fever no chills no chest pain or shortness of breath no diaphoresis Yes all other systems are reviewed and are negative PMFSH Past Medical History Attestation statement: The following information was validated with the patient. Medical History Eczema Obesity Hypertension PTSD (post-traumatic stress disorder) Depression Anxiety Polydrug abuse Diabetes Surgical History History of appendectomy Family History Family History Father Hypertension Mother No problems noted. Social History Social History Household Members: None Housing: Homeless Housing Other:: homeless Do you presently have visiting nurse or other home services: No Alcohol intake: current Alcohol intake frequency: holidays/special occasions only Patient Tobacco Use Status: Current someday Tobacco user Tobacco use type: Cigarette Cigarettes Per Day: 2 Years Smoked: 3 e-Cigarette/Vaping Use: Never Used Second Hand Smoke Exposure: No Advance Directives: No Advance Directives Information Provided: No service: No Current occupational status: unemployed Cognitive needs: No Hearing needs: No Vision needs: No Physical Exam ED Vital Signs: Vital Signs - 24 hr 01/16/25 17:06 01/16/25 19:38 01/16/25 22:03 Temperature 98.1 F 97.6 F Pulse Rate 92 69 78 Respiratory Rate 18 16 19 Blood Pressure 191/105 H 150/83 H 146/91 H Pulse Oximetry 97 96 97 Oxygen Delivery Method Room Air Room Air Room Air BMI result Body Mass Index 41.9 Appearance: Alert. Oriented X3. No acute distress. Eyes: Pupils equal, round and reactive to light. ENT: Pharynx normal. Neck: Normal inspection. Neck supple. No lymph nodes noted. No crepitus CVS: Normal heart rate and rhythm. Pulses normal. Normal S1 and S2 Respiratory: No respiratory distress. Breath sounds normal. No Wheezing. No rales Abdomen: Soft and nontender. No rigidity. No distention. good BS x4 Skin: Skin warm and dry. Normal skin color. Normal skin turgor. Extremities: No lower extremity edema. Neurovascular intact to all extremities. No Lacerations. No Rash Neuro: Oriented X 3. No motor deficit. No sensory deficit. Moving all extermities. No slurred speech Medications Administered Discontinued Medications Generic Name Dose Route Start Last Admin Trade Name Freq PRN Reason Stop Dose Admin Sodium Chloride 1,000 mls @ 999 mls/hr 01/16/25 19:45 01/16/25 20:56 Ns IV 01/16/25 20:45 Infused .Q1H1M LEIGHANN Infusion Sodium Chloride 1,000 mls @ 999 mls/hr 01/16/25 19:45 01/16/25 20:56 Ns IV 01/16/25 20:45 Infused .Q1H1M LEIGHANN Infusion Medical Decision Making Medical Decision Making [facility] Narrative: Patient well appearing no acute distress. White count is 11. Hemoglobin hematocrit was 15 and 43. No signs of anemia. Patient's VBG showed no CO2 retention. Normal pH. Patient's electrolytes are normal. Kidney functions are normal. Beta hydroxybutyrate was 0.16. No evidence for DKA. Patient's urine showed no infection. Recheck of patient's blood pressure is 146/91. Patient's sugar is 200. Lactate minimally elevated at 2.1 likely secondary to dehydration after fluids patient's repeat lactate was 1.7 currently in stable condition with discharge home Differential Diagnosis Differential Diagnoses: The differential diagnosis associated with the presentation includes Dehydration, hypertension, hypertensive emergency final Admission/Observation Consideration of admission/observation: Escalation of care including admission/observation considered Lab Data [facility] Lab Attestation statement: I reviewed the patient's lab results. 01/16/25 17:27 01/16/25 17:27 Labs: Lab Results 01/16/25 01/16/25 01/16/25 Range/Units 17:27 17:31 19:10 WBC 11.5 H (4.8-10.8) X10*3/uL RBC 5.17 (4.60-5.80) X10*6/uL Hgb 15.0 (14.0-18.0) g/dl Hct 43.1 (42.0-52.0) % MCV 83.4 (80.0-98.0) fL MCH 29.0 (27.0-33.0) pg MCHC 34.8 (31.0-36.0) g/dl RDW 12.7 (11.0-16.0) % Plt Count 259 (160-400) X10*3/uL MPV 11.4 (9.4-12.4) fL Immature Gran % (Auto) 0.4 (0.0-0.4) % Neut % (Auto) 66.3 (45-73) % Lymph % (Auto) 23.5 (20-40) % [place] % (Auto) 7.5 (2-11) % Eos % (Auto) 1.5 (0-4) % Baso % (Auto) 0.8 (0-2) % Lymph # (Auto) 2.7 (1.2-4.9) X10*3/uL [place] # (Auto) 0.9 (0.1-1.2) X10*3/uL Eos # (Auto) 0.2 (0.0-0.4) X10*3/uL Baso # (Auto) 0.1 (0.0-0.2) X10*3/uL Abs Immat Gran (auto) 0.05 H (0.00-0.03) X10*3/uL Absolute Neuts (auto) 7.6 (2.0-8.3) x10*3/uL Absolute Nucleated RBC 0.000 (0.0-0.012) X10*3/uL Nucleated RBC % (auto) 0.0 (0.0-0.2) /100WBC VBG pH 7.40 (7.32-7.43) VBG pCO2 41 mmHg VBG pO2 48 mmHg VBG HCO3 26 (22-26) mmol/L VBG O2 Saturation 79.0 % VBG Base Excess 1.4 mmol/L Sodium 141 (135-145) mmol/L Potassium 3.6 (3.3-5.1) mmol/L Chloride 105 (96-108) mmol/L Carbon Dioxide 25 (22-29) mmol/L Anion Gap 15 (12-20) BUN 18 H (9-16) mg/dL Creatinine 1.05 (0.5-1.4) mg/dL Estim Creat Clear Calc 141.5 Estimated GFR > 60 Random Glucose 252 H (60-115) mg/dL Lactic Acid 2.2 H* (0.5-2.0) mmol/L Calcium 8.8 (8.4-10.2) mg/dL Magnesium 2.0 (1.6-2.6) mg/dL Total Bilirubin 0.3 (0.0-1.0) mg/dL AST 32 (5-37) U/L ALT 65 H (0-40) U/L Alkaline Phosphatase 68 (39-117) U/L Total Protein 7.0 (6.5-8.0) g/dL Albumin 4.2 (3.5-5.0) g/dL Beta-Hydroxybutyrate 0.16 (0.02-0.27) mmol/L Urine Color Yellow Urine Appearance Clear Urine pH 5.5 (5.0-9.0) Ur Specific [place] 1.025 (1.005-1.025) Urine Protein Negative (Neg-Trace) mg/dL Urine Glucose (UA) 250 H (Negative) mg/dL Urine Ketones Trace (Negative) mg/dL Urine Blood Negative (Negative) Urine Nitrite Negative (Negative) Ur Leukocyte Esterase Negative (Negative) 01/16/25 Range/Units 21:03 WBC (4.8-10.8) X10*3/uL RBC (4.60-5.80) X10*6/uL Hgb (14.0-18.0) g/dl Hct (42.0-52.0) % MCV (80.0-98.0) fL MCH (27.0-33.0) pg MCHC (31.0-36.0) g/dl RDW (11.0-16.0) % Plt Count (160-400) X10*3/uL MPV (9.4-12.4) fL Immature Gran % (Auto) (0.0-0.4) % Neut % (Auto) (45-73) % Lymph % (Auto) (20-40) % [place] % (Auto) (2-11) % Eos % (Auto) (0-4) % Baso % (Auto) (0-2) % Lymph # (Auto) (1.2-4.9) X10*3/uL [place] # (Auto) (0.1-1.2) X10*3/uL Eos # (Auto) (0.0-0.4) X10*3/uL Baso # (Auto) (0.0-0.2) X10*3/uL Abs Immat Gran (auto) (0.00-0.03) X10*3/uL Absolute Neuts (auto) (2.0-8.3) x10*3/uL Absolute Nucleated RBC (0.0-0.012) X10*3/uL Nucleated RBC % (auto) (0.0-0.2) /100WBC VBG pH (7.32-7.43) VBG pCO2 mmHg VBG pO2 mmHg VBG HCO3 (22-26) mmol/L VBG O2 Saturation % VBG Base Excess mmol/L Sodium (135-145) mmol/L Potassium (3.3-5.1) mmol/L Chloride (96-108) mmol/L Carbon Dioxide (22-29) mmol/L Anion Gap (12-20) BUN (9-16) mg/dL Creatinine (0.5-1.4) mg/dL Estim Creat Clear Calc Estimated GFR Random Glucose (60-115) mg/dL Lactic Acid 1.7 (0.5-2.0) mmol/L Calcium (8.4-10.2) mg/dL Magnesium (1.6-2.6) mg/dL Total Bilirubin (0.0-1.0) mg/dL AST (5-37) U/L ALT (0-40) U/L Alkaline Phosphatase (39-117) U/L Total Protein (6.5-8.0) g/dL Albumin (3.5-5.0) g/dL Beta-Hydroxybutyrate (0.02-0.27) mmol/L Urine Color Urine Appearance Urine pH (5.0-9.0) Ur Specific [place] (1.005-1.025) Urine Protein (Neg-Trace) mg/dL Urine Glucose (UA) (Negative) mg/dL Urine Ketones (Negative) mg/dL Urine Blood (Negative) Urine Nitrite (Negative) Ur Leukocyte Esterase (Negative) Independent Historian Clinical information obtained from an independent historian. History obtained from or confirmed by: Spouse Chronic Conditions Patient?s care impacted by: Diabetes and Hypertension Social Determinants Patient?s care significantly limited by Social Determinants of Health including: Inadequate housing, Low income, Alcoholism and drug addiction in family, Problems related to primary support group and Unemployment Discharge Plan Discharge Clinical Impression: Acute hyperglycemia Patient Disposition: Home, Self-Care Instructions: Diabetic Hyperglycemia (ED) Prescriptions: No Action hydromorphone [Dilaudid] 4 mg tablet 4 mg PO Q6H PRN (Reason: pain) 30 Days Qty: 90 0RF Rx Instructions: Partial Fill upon patient request. (DME) blood-glucose meter [FreeStyle Lite Meter] Kit See Rx Instructions .Route Qty: 1 0RF Rx Instructions: Test blood sugar once a day (DME) FreeStyle Lite Strips Strip See Rx Instructions .Route Qty: 100 3RF Rx Instructions: Test blood sugar once a day (DME) lancets [FreeStyle Lancets] 28 gauge misc See Rx Instructions .Route Qty: 100 3RF Rx Instructions: Test blood sugar once a day bisoprolol-hydrochlorothiazide 5-6.25 mg tablet 2 tab PO DAILY Qty: 180 1RF lisinopril 40 mg tablet 40 mg PO DAILY Qty: 90 2RF metformin 500 mg tablet extended release 24 hr 500 mg PO BID 90 Days Qty: 180 2RF acetaminophen 325 mg Tablet 650 mg PO Q6H PRN (Reason: Pain, Mild 1-3,Fever,Headache) Qty: 20 0RF lidocaine [Lidocaine Pain Relief] 4 % Adhesive Patch,Medicated 1 patch transdermal DAILY Qty: 7 0RF Protocol: Apply to: Apply to: Pain area polyethylene glycol 3350 17 gram Powder In Packet 17 g PO DAILY Qty: 30 0RF docusate sodium 100 mg Capsule 100 mg PO BID Qty: 30 0RF gabapentin 300 mg capsule 300 mg PO BEDTIME Qty: 90 3RF Referrals: Tory Vaughan MD [Primary Care Provider] - 01/18/25 Print Language: Iranian
[2025-01-16 22:16] VITALS: BP 146/91; PULSE 78; RESP 19; TEMP 36.7; O2SAT 97
== END 2025-01-16 22:21 | disposition home or self-care (01) ==
PROVIDERS: Registered Nurse Emergency; Emergency Provider Emergency Medicine Emergency Medical Services; PCP Internal Medicine
DX: E11.65 Type 2 diabetes mellitus with hyperglycemia (principal); R79.89 Other specified abnormal findings of blood chemistry; F17.210 Nicotine dependence, cigarettes, uncomplicated; Z79.899 Other long term (current) drug therapy; Z79.84 Long term (current) use of oral hypoglycemic drugs
CPT/HCPCS: 36415; 80053; 81003; 82010; 82803; 83605; 83735; 85025; 93005; 96360; 99284

== ENCOUNTER → 2025-01-16 17:15 | Outpatient (BNV) | payer OTHER, SELFPAY | PROVIDERS: Emergency Provider Emergency Medicine Emergency Medical Services; PCP Internal Medicine; Visit Provider Internal Medicine | DX: R79.89 Other specified abnormal findings of blood chemistry (principal) | CPT/HCPCS: 93010 ==

== ENCOUNTER 2025-01-19 10:02 | Outpatient (AMB) | payer OTHER, SELFPAY ==
[2025-01-19 10:06] VITALS: BP 138/86; PULSE 77; RESP 20; TEMP 36.8; O2SAT 97; BMI 42.5
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
== END 2025-01-19 11:03 | disposition home or self-care (01) ==
LOC: HO.HMCC 10:03
PROVIDERS: PCP Internal Medicine; Visit Provider Internal Medicine
DX: E11.9 Type 2 diabetes mellitus without complications (principal); I10 Essential (primary) hypertension; E66.9 Obesity, unspecified; Z68.41 Body mass index [BMI] 40.0-44.9, adult; R60.9 Edema, unspecified

== ENCOUNTER → 2025-01-19 10:02 | Outpatient (BNVA) | payer OTHER, SELFPAY | PROVIDERS: PCP Internal Medicine; Visit Provider Internal Medicine | DX: E11.40 Type 2 diabetes mellitus with diabetic neuropathy, unspecified (principal); I10 Essential (primary) hypertension; E66.9 Obesity, unspecified; Z68.41 Body mass index [BMI] 40.0-44.9, adult; R60.9 Edema, unspecified | CPT/HCPCS: 96127; 99212 ==

== ENCOUNTER → 2025-02-28 10:58 | Outpatient (BNVA) | payer OTHER, SELFPAY | PROVIDERS: PCP Internal Medicine ==

== ENCOUNTER 2025-03-07 10:27 | Outpatient (REF) | payer OTHER, SELFPAY ==
--- OUTSIDE RECORDS SUMMARY | 2025-03-07 12:11 | XMS_ITS | Data Portability ---
Author Organization [facility], [address] Address [address] [place] [address] Care Team Providers Care Hydro Generation Supervisor Name Role Phone ODALYS SUAREZ Primary Care Provider Assessment No assessment recorded. Plan of Treatment Reminders Order Date Submit Date Provider Last Modified By Organization Details Last Modified Time Details Appointments None recorded. Lab glucose, fingerstick , blood 2022 023 [email or web address] shanique abdiaziz, [address] [place] [address], [phone], 3 11:12:53 Referral None recorded. Procedures None recorded. Surgeries None recorded. Imaging electrocard iogram 2022 023 [email or web address] 9 shanique [facility], [address] [place] [address], [phone], 3 12:23:49 XR, chest, 2 view 2022 023 [email or web address] 9 [facility], [address] [place] [address], [address], 3 12:23:49 Medication Orders albuterol sulfate HFA 90 mcg/actuati on aerosol inhaler 2022 023 [facility][id number], [address] [facility] [place], [address], 3 12:18:56 Flovent HFA 110 mcg/actuati on aerosol inhaler 2022 023 [id number], [address] [facility] [place], [address], 3 12:18:56 venlafaxine ER 75 mg capsule,ext ended release 24 hr 2022 023 [id number] [address] [facility] [place], [address], 3 12:22:27 gabapentin 100 mg capsule 2022 023 [id number] [address] [facility] [place], [address], 3 12:18:56 Patient TargetsNo targets recorded. Patient InstructionsNo instructions recorded. Reason for Referral None Reported. Results Created Date Observation Date Name Description Value Unit Range Abnormal Flag Note LastModifiedBy Organization Detail LastModifiedTime 04/12/2004/12/2023 gluco , endy rstic k, blood blood sugar - non fasting mg/dL 80-140 = normal Not Available shanique [address] [place], [address], 04/12/2023 10:54:44 04/12/20 23 04/12/2023 gluco , endy rstic k, blood blood sugar - fasting 102 mg/dL 80-125 = normal Not Available shanique [address] [place], [address], 04/12/2023 10:54:44 04/12/20 23 04/12/2023 mony golden am No observ ation record ed. WILLIAMSON shanique [address] [place], [address], 04/12/2023 11:13:31 04/12/20 23 04/12/2023 XR, chest , 2 view No observ ation record ed. [email or web address] [facility] [address] [place], [place], [address], 04/12/2023 12:12:34 Result Notes None recorded. Problems Name Problem SNOMED Code Status Onset Date Resolution Date Notes Provider Name and Address Organization Details Recorded Time Hypertensive disorder 46021680 Active 2022 MALOUJessica SILVA null, PA - [facility] 3 10:46:32 Asthma 862917418 Active 2022 MALOU SHIRA null, PA - [facility] 3 10:46:39 Diabetes mellitus 08330353 Active 2022 MALOU SHIRA null, PA - [facility] 3 10:46:44 Anxiety 98377832 Active 2022 MALOU SHIRA null, PA - [facility] 3 10:47:10 Problem Notes None recorded. Procedures Surgical History Date Name Laterality Status Provider Name and Address Organization Details Recorded Time Appendectomy completed MALOU SILVA PA - [facility] 04/12/2023 10:49:06 Imaging Results None recorded. Procedure Notes None recorded. Medical Equipment None Reported. Allergies Allergen ID Allergen Name Allergen Category Reaction Reaction Severity Criticality Documentation Date Start Date Code Code System Note Provider Name and Address Organization Details Recorded Time 050448 Product containin g penicilli n (product) medicatio n hives Not available Not available 04/12/2023 43414 8001 SNOMED MALOU DÍAZAU null, PA - [facility] 3 10:46:18 Medications Name Sig Start Date Stop Date Status Note LastModified by Organization Details LastModified Time venlafaxine ER 75 mg capsule,ext ended release 24 hr Take 1 capsule every day by oral route. 2022 active Not Available Not Available Not Avai lable azithromyci n 250 mg tablet TAKE 2 TABLETS BY MOUTH TODAY, THEN TAKE 1 TABLET DAILY FOR 4 DAYS 04/12 completed Not Available Not Available Not Available aspirin 81 mg tablet,maribel yed release TAKE 1 TABLET BY MOUTH EVERY DAY active Not Available Not Available No t Available metformin 1,000 mg tablet TAKE 1 TABLET BY MOUTH TWICE A DAY active Not Available Not Available No t Available gabapentin 100 mg capsule Take 1 capsule twice a day by oral route. 2022 active Not Available Not Available Not Avai lable lisinopril 40 mg tablet TAKE 1 TABLET BY MOUTH EVERY DAY active Not Available Not Available No t Available Ventolin HFA 90 mcg/actuati on aerosol inhaler INHALE 2 PUFFS BY MOUTH EVERY 4 TO 6 HOURS NEEDED FOR SHORTNESS OF BREATH COUCH OR WHEEZE active Not Available Not Available No t Available Flovent HFA 110 mcg/actuati on aerosol inhaler INHALE 1 PUFF TWICE A DAY BY INHALATIO N ROUTE. active Not Available Not Available No t Available Lantus Solostar U-100 Insulin 100 unit/mL (3 mL) subcutaneou s pen 10 UNIT (0.1 ML) SUBCUTANE OUSLY DAILY 04/12 completed Not Available Not Available Not Available Vitals Date Recorded Body height Body mass index (BMI) Body weight Oxygen saturation Oxygen saturation in Arterial blood by Pulse oximetry Heart rate Respiratory rate Body temperature Systolic blood pressure Diastolic blood pressure Systolic blood pressure Diastolic blood pressure Provider Name and Address Organization Details Last Updated DateTime 3 190.5 cm 34.5 kg/m2 331799. 49 g 97 % 97 % 84 /min 18 /min 97.9 [degF] 167 mm[Hg] 92 mm[Hg] 138 mm[Hg] 86 mm[Hg] MALOU SILVA PA - [facility] 3 12:12:55 Social History Question Answer Notes LastModified by [employer] Details LastModified Time Tobacco Smoking Status Current Every Day Smoker MALOU turner PA - [facility] 04/12/2023 10:48:11 How Much Tobacco Do You Smoke? 0.25 PPD Information not available 04/12/2023 Have You Recently Traveled Abroad? No Information not available 04/12/2023 Sex: Unknown Functional Status Question Answer Note LastModified by [email or web address] Details LastModified Time Do you use any illicit or recreational drugs? No Information not available 04/12/2023 What is your level of alcohol consumption? None Information not available 04/12/2023 Are you currently employed? No Information not available 04/12/2023 Mental Status None recorded. Family History Relationship Description Onset Age of this Age Resolved Age Notes LastModified by Organization Details LastModified Time Father Chronic obstructive pulmonary disease Not available 2022 10:47:35 Father Heart disease Not available 2022 10:47:43 Medical History No medical history recorded. Immunizations Vaccine Type Date Status Note Provider Nam e and Address Organization Details Recorded Time COVID-19, mRNA, LNP-S, PF, 30 mcg/0.3 mL dose 01/09/2021 completed MALOU SHIRA null, PA - [facility] 04/12/2023 10:45:45 COVID-19, mRNA, LNP-S, PF, 30 mcg/0.3 mL dose 01/30/2021 completed MALOU SHIRA null, PA - [facility] 04/12/2023 10:45:45 Tdap 11/19/2016 completed MALOU SHIRA null, PA - [facility] 04/12/2023 10:45:45 Past Encounters Encounter ID Performer Location Encounter Start Date Encounter Closed Date Diagnosis/Indication Diagnosis SNOMED-CT Code Diagnosis ICD10 Code Diagnosis Note [id number] [place] [address] [address] 04/12/2023 10:32:46 04/12/2023 12:23:49 Chest pain 05895691 R07.9 atypical CP completely resolved at this timeVSSEKG /CXR and PE normalSx more c/w chest tightness 2/2 asthma he has f/u with his PCP next weekrecomm end smoking cessationc /w lisinopril Discussed concerning red flags with patient and reasons to follow up in the Emergency Department urgently. Patient expressed understand ing of and agreement with the plan as outlined above. Asthma 523777536 J45.90 9 RX ICS and albuterol rescue prn PE, VS and CXR normal he has f/u with his PCP next weekrecomm end smoking cessation Diabetic p eripheral neuropathy 721354285 E11.40 trial low dose gabapentin he has f/u with PCP nest week - recommend titration as needed he denies known CKD Reviewed with patient potential adverse side effects of the medication .Discussed concerning red flags with patient and reasons to follow up in the Emergency Department urgently. Generalize d anxiety disorder 55276107 F41.1 no SI/HIhas therapist and PCPwill RF his effexor for 14 dReviewed with patient potential adverse side effects of the medication f/u with PCP/therap ist Discussed concerning red flags with patient and reasons to follow up in the Emergency Department urgently. Health Concerns Section Related Observation LastModified by Organization Detai ls LastModified Time None Recorded Concern Status LastModified by Organization Details LastModified Time None Recorded Advance Directives Directive None Recorded Payers Insurance Date Sequence Insurance Name Policy Number Policy Henry Covered Member ID Henry Member ID Guarantor Name 04/13/2023 1 [facility] HEALTH NET PLAN (MEDICAID HMO) [facility] [id number] Karri Vivar 04/13/2023 2 [place] [facility] Karri Vivar [id number] Karri Vivar Notes Date Note Type Note Provider Name and Address Organization Details Recorded Time 04/12/2023 text/html Shortness of BreathReported bypatient.Notes:42 yo male c/o 1 d chest pressure and tightness+ SOB+ productive cough currently homelessran out of his meds+ h/o DM, asthma, HTNsmoker no f/c/n/vNo wheezeNo congestionNo ear painNo sore throatNo Abdominal painNp diarrheaNo myalgiaNo fatigueNo rashNo HANo dizzinessNo recent travelNo known sick contacts Papo Rubio, DO [address] [place], [address], [place] - [facility] 04/12/2023 12:22:49
[2025-03-07 13:26] LABS: MANUAL DIFF FLAG NO
[2025-03-07 13:28] LABS: B Type Natriuretic Peptide 22 pg/mL (<100)
[2025-03-07 13:34] LABS: Basophils Absolute Auto 0.1 X10*3/uL (0.0-0.2); Basophils Percent Auto 0.8 % (0-2); Eosinophils Absolute Auto 0.2 X10*3/uL (0.0-0.4); Eosinophils Percent Auto 3.3 % (0-4); Hematocrit 42.3 % (42.0-52.0); Hemoglobin 14.3 g/dl (14.0-18.0); Imm Gran Abs Auto 0.05 X10*3/uL (0.00-0.03); Imm Gran Pct Auto 0.7 % (0.0-0.4); Lymphocytes Absolute Auto 1.9 X10*3/uL (1.2-4.9); Lymphocytes Percent Auto 25.5 % (20-40); Mean Corpuscular HGB Conc 33.8 g/dl (31.0-36.0); Mean Corpuscular Hemoglobin 28.6 pg (27.0-33.0); Mean Corpuscular Volume 84.6 fL (80.0-98.0); Mean Platelet Volume 12.4 fL (9.4-12.4); Monocytes Absolute Auto 0.7 X10*3/uL (0.1-1.2); Monocytes Percent Auto 9.4 % (2-11); Neutrophils Absolute Auto 4.4 x10*3/uL (2.0-8.3); Neutrophils Percent Auto 60.3 % (45-73); Platelet Count 219 X10*3/uL (160-400); Red Cell Distribution Width 12.6 % (11.0-16.0); White Blood Count 7.3 X10*3/uL (4.8-10.8)
[2025-03-07 14:02] LABS: Alanine Aminotransferase 68 U/L (0-40); Albumin Level 4.1 g/dL (3.5-5.0); Alkaline Phosphatase 55 U/L (39-117); Anion Gap 9 (12-20); Aspartate Amino Transferase 36 U/L (5-37); Bilirubin Total 0.3 mg/dL (0.0-1.0); Blood Urea Nitrogen 12 mg/dL (9-16); Calcium 8.3 mg/dL (8.4-10.2); Carbon Dioxide 29 mmol/L (22-29); Chloride 107 mmol/L (96-108); Cholesterol 163 mg/dL (<200); Estimated Glomerular Filt Rate > 60; Glucose Fasting 177 mg/dL (60-99); HDL Cholesterol 31 mg/dL (>40); LDL Cholesterol Calculated 71 mg/dL (<100); Potassium 4.2 mmol/L (3.3-5.1); Sodium 141 mmol/L (135-145); Total Protein 6.4 g/dL (6.5-8.0); Triglycerides 305 mg/dL (<150)
== END 2025-03-07 10:28 | disposition home or self-care (01) ==
LOC: HO.HMGCLDS 10:27
PROVIDERS: PCP Internal Medicine; Visit Provider Internal Medicine
DX: E11.9 Type 2 diabetes mellitus without complications (principal); R06.09 Other forms of dyspnea; I10 Essential (primary) hypertension; K21.9 Gastro-esophageal reflux disease without esophagitis; E66.9 Obesity, unspecified; Z68.41 Body mass index [BMI] 40.0-44.9, adult; Z79.4 Long term (current) use of insulin; Z79.84 Long term (current) use of oral hypoglycemic drugs; Z79.899 Other long term (current) drug therapy; Z59.00 Homelessness unspecified
CPT/HCPCS: 36415; 80053; 80061; 83880; 85025; 99212

== ENCOUNTER 2025-03-07 10:37 | Outpatient (AMB) | payer OTHER, SELFPAY ==
[2025-03-07 10:39] VITALS: BP 138/94; PULSE 84; RESP 20; TEMP 36.8; O2SAT 96; BMI 42.5
--- NOTE | 2025-03-07 10:39 | A.OFFPC_ITS ---
Vital Signs 03/07/25 10:39 Height 6 ft 3 in Weight 340 lb BMI 42.5 BP 138/94 H Blood Pressure Location Lt brachial Position Sitting Respiration 20 Pulse 84 Pulse Source Pulse Oximeter Temp 98.3 F Temp Source Oral Pulse Oximetry (%) 96 Oxygen Delivery Method Room Air Intake Visit Reasons: Diabetes Intake Note: Pt is here today for a follow up visit on DM. Allergies amlodipine Allergy (Intermediate, Verified 03/07/25 10:42) Flushing amoxicillin Adverse Reaction (Verified 03/07/25 10:42) Unknown Medication List - Last Reconciled 03/07/25 by Tory Vaughan MD acetaminophen 650 mg (2 x 325 mg) PO Q6H PRN bisoprolol-hydrochlorothiazide 5-6.25 mg 2 tabs PO DAILY blood sugar diagnostic (FreeStyle Lite Strips) Test blood sugar four times per day blood-glucose meter (FreeStyle Lite Meter kit) Test blood sugar once a day Dexcom G7 Public Address Announcer (blood-glucose,jaw skinner,cont) As directed NS Dexcom G7 Sensor (blood-glucose sensor) As directed NS docusate sodium 100 mg PO BID furosemide 20 mg PO Q OTHER DAY gabapentin 300 mg PO BEDTIME insulin glargine (Lantus Solostar U-100 Insulin) 30 units subcut QPM lancets (FreeStyle Lancets) Test blood sugar four times per day lidocaine 4% (Lidocaine Pain Relief) 1 patch See Protocol transdermal DAILY lisinopril 40 mg PO DAILY metformin ER 500 mg PO BID 90 days pen needle, diabetic (Comfort EZ Pen [place]) As directed pen needle, diabetic (Easy Comfort Pen [place]) Administer insulin daily as directed polyethylene glycol 3350 17 grams PO DAILY Tobacco use date assessed: 03/07/25 Dental Screening Dental Screen Date: 10/21/24 HPI Diabetes HPI Details PATIENT PRESENTS FOR THE FOLLOW-UP OF INSULIN-DEPENDENT DIABETES. HE REPORTS IMPROVED BLOOD GLUCOSE READINGS BETWEEN 130-200 HOURS AFTER EATING. Patient denies hypoglycemia. He has been eating 3 meals a day. Patient has not been taking bisoprolol with hydrochlorothiazide regularly. He has an appointment with audit practice intern for diabetic eye exam. Patient reports feeling generally weak and having dyspnea on exertion when walking up the stairs. Patient denies PND orthopnea palpitations. He has a constant substernal discomfort worse after eating acidic foods. He denies odynophagia dysphagia nausea vomiting hematochezia melena or abdominal pain PFSH Medical History (Updated 03/07/25 @ 11:48 by Tory Vaughan MD) Insulin dependent type 2 diabetes mellitus CHAMBERS (dyspnea on exertion) Eczema Obesity Hypertension PTSD (post-traumatic stress disorder) Depression Anxiety Polydrug abuse Surgical History History of appendectomy Family History Father Hypertension Mother No problems noted. Social History Household Members: None Housing: Homeless Housing Other:: homeless Do you presently have visiting nurse or other home services: No Alcohol intake: current Alcohol intake frequency: holidays/special occasions only Patient Tobacco Use Status: Current someday Tobacco user Tobacco use type: Cigarette Cigarettes Per Day: 2 Years Smoked: 3 Packs per year/per ci.30 e-Cigarette/Vaping Use: Never Used Second Hand Smoke Exposure: No service: No Current occupational status: unemployed Cognitive needs: No Hearing needs: No Vision needs: No Questionnaire Thrive Questionnaire Date Thrive assessed: 01/19/25 I am a: Patient What is your living situation today?: I do not have a steady places to live I am living on the [address] Within the past 12 months, did the food you bought not last and you didn't have the money to get more?: Often true Within the past 12 months, did you worry whether your food would run out before you got money to buy more?: Often true Do you have trouble paying for medicines?: No Do you have trouble getting transportation to medical appointments?: Yes Do you have trouble paying your heating and electricity bill?: No Do you have trouble taking care of your child, family member or friend?: No Do you have trouble with day-to-day activities such as bathing, preparing meals, shopping, managing finances, etc.?: Yes Are you currently unemployed and looking for a job?: Yes Are you interested in more education?: Yes THRIVE Score: 4 VIANNEY-7 AMB Questionnaire VIANNEY-7 Date VIANNEY - 7 assessed: 01/19/25 Source: Developed by Drs. Jose G Isidro, Helga Bolanos, Carlin Murillo and colleagues, with an educational codey from [employer]. Review of Systems Const All systems reviewed & are unremarkable except as noted in HPI and below Eyes Reports no additional complaints ENT Reports no additional complaints Card Reports no additional complaints Resp Reports no additional complaints GI Reports no additional complaints Reports no additional complaints Musc Reports no additional complaints Physical exam (Primary Care) Vital Signs: Last Vital Signs Temp 98.3 F 03/07/25 10:39 Pulse 84 03/07/25 10:39 Resp 20 03/07/25 10:39 BP 138/94 H 03/07/25 10:39 Pulse Ox 96 03/07/25 10:39 Oxygen Delivery Method Room Air 03/07/25 10:39 BMI result Body Mass Index 42.5 Tobacco/Smoking Status: Tobacco use Status Tobacco use date assessed 03/07/25 03/07/25 10:40 Patient Tobacco Use Status Current someday Tobacco 03/07/25 10:39 Tobacco use type Cigarette 03/07/25 10:39 e-Cigarette/Vaping Use Never Used 03/07/25 10:39 Thrive Assessment: Date of Thrive Assessment Date Thrive assessed 01/19/25 03/07/25 10:39 Const General: no acute distress HENMT Head: Yes normal to inspection Mouth: Normal oral and palatal mucosa present Neck Neck: Yes supple Resp Effort & Inspection: normal respiratory effort Auscultation: clear to auscultation bilaterally Cardio Rhythm: regular rhythm Heart sounds: S1 normal heart sound present and S2 normal heart sound present GI Inspection: Yes normal to inspection Palpation (GI): Soft to palpation Percussion: Yes normal to percussion Auscultation: normal bowel sounds Coding Level of Care Code Est Pt Level 4 (96748) Complex EM visit Add On G2211 Diagnoses CHAMBERS (dyspnea on exertion) R06.09 Insulin dependent type 2 diabetes mellitus E11.9; Z79.4 Hypertension, unspecified type I10 Hypertension type: unspecified GERD (gastroesophageal reflux disease) K21.9 Assessment & Plan Assessment & Plan (1) CHAMBERS (dyspnea on exertion): Code(s): R06.09 - Other forms of dyspnea Category: Medical Plan: Obtain echocardiogram to evaluate for ejection fraction (2) Insulin dependent type 2 diabetes mellitus: Code(s): E11.9 - Type 2 diabetes mellitus without complications; Z79.4 - senior living (current) use of insulin Category: Medical Plan: Increase Lantus to 40 units continue metformin, ADA diet regular physical activity discussed with the patient. Follow-up in 2 months (3) Hypertension: Code(s): I10 - Essential (primary) hypertension Category: Medical Qualifiers: Hypertension type: unspecified Qualified Code(s): I10 - Essential (primary) hypertension Plan: Continue lisinopril restart bisoprolol with hydrochlorothiazide (4) GERD (gastroesophageal reflux disease): Code(s): K21.9 - Gastro-esophageal reflux disease without esophagitis Category: Medical Plan: Anti GERD diet discussed with the patient, Pepcid 40 mg daily IS prescribed. Orders: Orders CA echo transthoracic complete Today R06.09 - Other forms of dyspnea Medications: New famotidine (Pepcid) 40 mg PO BEDTIME 90 tabs 0RF insulin glargine (Lantus Solostar U-100 Insulin) 40 units (0.4 mL) subcut QPM 15 mL 4RF Refilled bisoprolol-hydrochlorothiazide 5-6.25 mg 2 tabs PO DAILY 180 tabs 3RF
== END 2025-03-07 11:49 | disposition home or self-care (01) ==
LOC: HO.HMCC 10:37
PROVIDERS: PCP Internal Medicine; Visit Provider Internal Medicine
DX: R06.09 Other forms of dyspnea (principal); E11.9 Type 2 diabetes mellitus without complications; Z79.4 Long term (current) use of insulin; I10 Essential (primary) hypertension; K21.9 Gastro-esophageal reflux disease without esophagitis

== ENCOUNTER 2025-03-08 18:19 | Emergency (ER) | payer OTHER, SELFPAY ==
--- NOTE | 2025-03-08 | ECG_ITS ---
Test Reason : SYNCOP Blood Pressure : */* mmHG Vent. Rate : 63 BPM Atrial Rate : 63 BPM P-R Int : 146 ms QRS Dur : 84 ms QT Int : 424 ms P-R-T Axes : 20 10 40 degrees QTcB Int : 433 ms Normal sinus rhythm Normal ECG When compared with ECG of 16-Jan-2025 17:25, No significant change was found Referred By: Generic ED Physician Electronically Signed By: VERA TORREZ MD
[2025-03-08 18:51] VITALS: BP 188/100; PULSE 64; O2SAT 97
[2025-03-08 19:11] VITALS: BP 140/64; PULSE 63; RESP 20; TEMP 36.9; O2SAT 97; BMI 37.5
--- NOTE | 2025-03-08 19:18 | ED.GENADULT ---
HPI - General Adult General Chief complaint: General Medical Stated complaint: homeless , fanted w chest pain hx diabetes Time Seen by Provider: 03/08/25 23:32 Source: patient and EMS Mode of arrival: EMS Limitations: no limitations History of Present Illness ED Provider: HPI narrative: Patient is diabetic on insulin obese noncompliant to his diet comes here as he has fluctuating blood sugar level for last 2 months patient is taking Lantus 40 units in the a.m. and metformin 500 mg has gained about 100 lb in last 2 months does not take proper meals today while fishing he did not eat all day till 15:00 and had candies during daytime Related Data Previous Rx's ?Medication ?Instructions ?Recorded acetaminophen 325 mg tablet 650 mg (2 x 325 mg) PO Q6H PRN 10/08/24 Pain, Mild 1-3,Fever,Headache #20 tabs docusate sodium 100 mg capsule 100 mg PO BID #30 caps 10/08/24 lidocaine 4 % topical patch 1 patch transdermal DAILY #7 ea 10/08/24 (Lidocaine Pain Relief) polyethylene glycol 3350 17 gram 17 g PO DAILY #30 ea 10/08/24 oral powder packet gabapentin 300 mg capsule 300 mg PO BEDTIME #90 caps 10/21/24 blood-glucose meter (FreeStyle #1 ea 12/21/24 Lite Meter kit) lisinopril 40 mg tablet 40 mg PO DAILY #90 tabs 01/14/25 metformin 500 mg tablet,extended 500 mg PO BID 90 days #180 tabs 01/14/25 release 24 hr Dexcom G7 Lunchroom Supervisor #1 ea 01/19/25 (blood-glucose,stock receiver,cont) Dexcom G7 Sensor (blood-glucose #3 ea 01/19/25 sensor) furosemide 20 mg tablet 20 mg PO Q OTHER DAY #30 tabs 01/19/25 pen needle, diabetic 31 gauge x #100 ea 01/19/2510/01 (Comfort EZ Pen [place]) pen needle, diabetic 32 gauge x #100 ea 01/20/25 (Easy Comfort Pen [place]) blood sugar diagnostic (FreeStyle #300 ea 02/09/25 Lite Strips) lancets 28 gauge (FreeStyle #300 ea 02/09/25 Lancets) bisoprolol 5 2 tab PO DAILY #180 tabs 03/07/25 mg-hydrochlorothiazide 6.25 mg tablet famotidine 40 mg tablet (Pepcid) 40 mg PO BEDTIME #90 tabs 03/07/25 insulin glargine 100 unit/mL (3 40 unit (0.4 mL) subcut QPM #15 mL 03/07/25 mL) subcutaneous pen (Lantus Solostar U-100 Insulin) empagliflozin 10 mg tablet 10 mg PO QAM #30 tabs 03/08/25 (Jardiance) Allergies Allergy/AdvReac Type Severity Reaction Status Date / Time amlodipine Allergy Intermediate Flushing Verified 03/08/25 19:18 amoxicillin AdvReac Unknown Verified 03/08/25 19:18 Review of Systems Review of Systems: Yes all other systems are reviewed and are negative PMFSH Past Medical History Medical History Insulin dependent type 2 diabetes mellitus CHAMBERS (dyspnea on exertion) Eczema Obesity Hypertension PTSD (post-traumatic stress disorder) Depression Anxiety Polydrug abuse Surgical History History of appendectomy Family History Family History Father Hypertension Mother No problems noted. Social History Social History Household Members: None Housing: Homeless Housing Other:: homeless Do you presently have visiting nurse or other home services: No Alcohol intake: current Alcohol intake frequency: holidays/special occasions only Patient Tobacco Use Status: Current someday Tobacco user Tobacco use type: Cigarette Cigarettes Per Day: 2 Years Smoked: 3 e-Cigarette/Vaping Use: Never Used Second Hand Smoke Exposure: No Advance Directives: No Advance Directives Information Provided: No service: No Current occupational status: unemployed Cognitive needs: No Hearing needs: No Vision needs: No Physical Exam ED Vital Signs: Vital Signs - 24 hr 03/08/25 22:51 Temperature 97.8 F Pulse Rate 71 Respiratory Rate 20 Blood Pressure 139/85 Pulse Oximetry 95 Oxygen Delivery Method Room Air BMI result Body Mass Index 37.5 Appearance: Alert. Oriented X3. No acute distress. Obese Eyes: PERRLA, No Nystagmus ENT: Pharynx normal. Oral Mucosa moist Neck: Normal inspection. Neck supple. CVS: Normal heart rate and rhythm. Pulses normal. Respiratory: No respiratory distress. Equal air entry bilateral, no wheezing/rales/rhonchi Abdomen: Soft and nontender. Bowel sounds are present, no mass palpable, no CVA tenderness Skin: Skin warm and dry. Normal skin color. Normal skin turgor. Extremities: No lower extremity edema. No calf tenderness Neuro: Oriented X 3. No motor deficit. No sensory deficit.No cerebellar signs , cranial nerves II-XII intact Course Course Course Narrative: RME: 44-year-old male presents to the ED for chest pain, hypoglycemia, nausea, and dizziness. Patient states he almost passed out while fishing patient was nauseous or vomiting. Patient is negative for any neuro deficits. Labs EKG ordered Medications Administered Discontinued Medications Generic Name Dose Route Start Last Admin Trade Name Freq PRN Reason Stop Dose Admin Insulin Human Lispro 6 unit 03/08/25 23:49 03/09/25 00:11 Insulin Lispro 100 Unit/Ml 3 Ml Vial SUBCUT 03/08/25 23:50 6 unit ONCE ONE Administration Medical Decision Making Medical Decision Making [facility] Narrative: Patient is diabetic obese noncompliant to diet advised to drink plenty of fluids diet restrictions follow up with school counselor and will start him on Jardiance along with insulin blood sugar was 263 at time of examination Lab Data [facility] Lab Attestation statement: I reviewed the patient's lab results. 03/08/25 19:25 03/08/25 19:25 Labs: Lab Results 03/08/25 03/09/25 Range/Units 19:25 00:11 WBC 12.5 H (4.8-10.8) X10*3/uL RBC 4.90 (4.60-5.80) X10*6/uL Hgb 14.2 (14.0-18.0) g/dl Hct 40.4 L (42.0-52.0) % MCV 82.4 (80.0-98.0) fL MCH 29.0 (27.0-33.0) pg MCHC 35.1 (31.0-36.0) g/dl RDW 12.8 (11.0-16.0) % Plt Count 239 (160-400) X10*3/uL MPV 11.5 (9.4-12.4) fL Immature Gran % (Auto) 0.5 H (0.0-0.4) % Neut % (Auto) 77.9 H (45-73) % Lymph % (Auto) 13.9 L (20-40) % [place] % (Auto) 6.5 (2-11) % Eos % (Auto) 0.6 (0-4) % Baso % (Auto) 0.6 (0-2) % Lymph # (Auto) 1.7 (1.2-4.9) X10*3/uL [place] # (Auto) 0.8 (0.1-1.2) X10*3/uL Eos # (Auto) 0.1 (0.0-0.4) X10*3/uL Baso # (Auto) 0.1 (0.0-0.2) X10*3/uL Abs Immat Gran (auto) 0.06 H (0.00-0.03) X10*3/uL Absolute Neuts (auto) 9.7 H (2.0-8.3) x10*3/uL Absolute Nucleated RBC 0.000 (0.0-0.012) X10*3/uL Nucleated RBC % (auto) 0.0 (0.0-0.2) /100WBC PT 11.2 (10.9-12.4) SEC INR 1.0 (0.9-1.1) APTT 27.4 (26.0-36.8) SEC Sodium 139 (135-145) mmol/L Potassium 3.8 (3.3-5.1) mmol/L Chloride 105 (96-108) mmol/L Carbon Dioxide 25 (22-29) mmol/L Anion Gap 13 (12-20) BUN 16 (9-16) mg/dL Creatinine 1.28 (0.5-1.4) mg/dL Estim Creat Clear Calc 109.5 Estimated GFR > 60 POC Glucose 225 H (60-115) mg/dL Random Glucose 188 H (60-115) mg/dL Calcium 8.4 (8.4-10.2) mg/dL Total Bilirubin 0.4 (0.0-1.0) mg/dL AST 34 (5-37) U/L ALT 68 H (0-40) U/L Alkaline Phosphatase 54 (39-117) U/L Troponin I High Sens 11.0 (<3.5-35.0) ng/L Total Protein 6.8 (6.5-8.0) g/dL Albumin 4.2 (3.5-5.0) g/dL Beta-Hydroxybutyrate 0.11 (0.02-0.27) mmol/L Independent Interpretation I performed an independent interpretation of an: EKG Interpretation: Normal sinus rhythm heart rate 63 beats per minute normal interval normal axis no acute ST-T no acute ischemia impression normal EKG Discharge Plan Discharge Clinical Impression: Uncontrolled diabetes mellitus with hyperglycemia Patient Disposition: Home, Self-Care Instructions: Diabetic Hyperglycemia (ED) Additional Instructions: Drink plenty of fluids Start taking Jardiance 10 mg daily Continue take your metformin You may need multiple doses of insulin Diet as advised Follow up with school counselor Prescriptions: New Jardiance 10 mg tablet 10 mg PO QAM Qty: 30 1RF No Action (DME) blood-glucose meter [FreeStyle Lite Meter] Kit See Rx Instructions .Route Qty: 1 0RF Rx Instructions: Test blood sugar once a day lisinopril 40 mg tablet 40 mg PO DAILY Qty: 90 2RF metformin 500 mg tablet extended release 24 hr 500 mg PO BID 90 Days Qty: 180 2RF (DME) Dexcom G7 Lunchroom Supervisor Misc See Rx Instructions .Route Qty: 1 4RF Rx Instructions: As directed (DME) Dexcom G7 Sensor Device See Rx Instructions .Route Qty: 3 5RF Rx Instructions: As directed (DME) pen needle, diabetic [Easy Comfort Pen [place]] 32 gauge x 5/32 needle See Rx Instructions .Route Qty: 100 3RF Rx Instructions: Administer insulin daily as directed (DME) FreeStyle Lite Strips Strip See Rx Instructions .Route Qty: 300 3RF Rx Instructions: Test blood sugar four times per day (DME) lancets [FreeStyle Lancets] 28 gauge misc See Rx Instructions .Route Qty: 300 3RF Rx Instructions: Test blood sugar four times per day acetaminophen 325 mg Tablet 650 mg PO Q6H PRN (Reason: Pain, Mild 1-3,Fever,Headache) Qty: 20 0RF lidocaine [Lidocaine Pain Relief] 4 % Adhesive Patch,Medicated 1 patch transdermal DAILY Qty: 7 0RF Protocol: Apply to: Apply to: Pain area polyethylene glycol 3350 17 gram Powder In Packet 17 g PO DAILY Qty: 30 0RF docusate sodium 100 mg Capsule 100 mg PO BID Qty: 30 0RF gabapentin 300 mg capsule 300 mg PO BEDTIME Qty: 90 3RF furosemide 20 mg tablet 20 mg PO Q OTHER DAY Qty: 30 2RF (DME) pen needle, diabetic [Comfort EZ Pen [place]] 31 gauge x 1/4 needle See Rx Instructions .Route Qty: 100 0RF Rx Instructions: As directed bisoprolol-hydrochlorothiazide 5-6.25 mg tablet 2 tab PO DAILY Qty: 180 3RF famotidine [Pepcid] 40 mg tablet 40 mg PO BEDTIME Qty: 90 0RF insulin glargine [Lantus Solostar U-100 Insulin] 100 unit/mL (3 mL) insulin pen 40 unit subcut QPM Qty: 15 4RF Referrals: Lindsay Marcano MD [Physician] - Discharge Date/Time: 03/09/25 00:23 Print Language: Nauruan
[2025-03-08 19:37] LABS: MANUAL DIFF FLAG NO
[2025-03-08 19:40] LABS: Basophils Absolute Auto 0.1 X10*3/uL (0.0-0.2); Basophils Percent Auto 0.6 % (0-2); Eosinophils Absolute Auto 0.1 X10*3/uL (0.0-0.4); Eosinophils Percent Auto 0.6 % (0-4); Hematocrit 40.4 % (42.0-52.0); Hemoglobin 14.2 g/dl (14.0-18.0); Imm Gran Abs Auto 0.06 X10*3/uL (0.00-0.03); Imm Gran Pct Auto 0.5 % (0.0-0.4); Lymphocytes Absolute Auto 1.7 X10*3/uL (1.2-4.9); Lymphocytes Percent Auto 13.9 % (20-40); Mean Corpuscular HGB Conc 35.1 g/dl (31.0-36.0); Mean Corpuscular Volume 82.4 fL (80.0-98.0); Mean Platelet Volume 11.5 fL (9.4-12.4); Monocytes Absolute Auto 0.8 X10*3/uL (0.1-1.2); Monocytes Percent Auto 6.5 % (2-11); Neutrophils Absolute Auto 9.7 x10*3/uL (2.0-8.3); Neutrophils Percent Auto 77.9 % (45-73); Platelet Count 239 X10*3/uL (160-400); Red Cell Distribution Width 12.8 % (11.0-16.0); White Blood Count 12.5 X10*3/uL (4.8-10.8)
[2025-03-08 19:49] LABS: Prothrombin Time 11.2 SEC (10.9-12.4)
[2025-03-08 19:52] LABS: Alanine Aminotransferase 68 U/L (0-40); Albumin Level 4.2 g/dL (3.5-5.0); Alkaline Phosphatase 54 U/L (39-117); Anion Gap 13 (12-20); Aspartate Amino Transferase 34 U/L (5-37); Beta-Hydroxybutyrate 0.11 mmol/L (0.02-0.27); Bilirubin Total 0.4 mg/dL (0.0-1.0); Blood Urea Nitrogen 16 mg/dL (9-16); Calcium 8.4 mg/dL (8.4-10.2); Carbon Dioxide 25 mmol/L (22-29); Chloride 105 mmol/L (96-108); Creatinine Clr Calc Pharmacy 109.5; Estimated Glomerular Filt Rate > 60; Glucose Random 188 mg/dL (60-115); Partial Thromboplastin Time 27.4 SEC (26.0-36.8); Potassium 3.8 mmol/L (3.3-5.1); Sodium 139 mmol/L (135-145); Total Protein 6.8 g/dL (6.5-8.0)
[2025-03-08 22:51] VITALS: BP 139/85; PULSE 71; RESP 20; TEMP 36.6; O2SAT 95
[2025-03-09] MEDS: Insulin Lispro 100 UNIT/ML 3 ML VIAL 6 UNIT SUBCUT (00:11)
[2025-03-09 00:16] LABS: Glucose, Whole Blood 225 mg/dL (60-115)
== END 2025-03-09 00:23 | disposition home or self-care (01) ==
PROVIDERS: Physician Assistant; Emergency Provider Internal Medicine; PCP Internal Medicine
DX: E11.65 Type 2 diabetes mellitus with hyperglycemia (principal); E66.9 Obesity, unspecified; Z71.3 Dietary counseling and surveillance; Z68.37 Body mass index [BMI] 37.0-37.9, adult; Z91.118 Patient's noncompliance with dietary regimen for other reason; F17.210 Nicotine dependence, cigarettes, uncomplicated; Z79.4 Long term (current) use of insulin
CPT/HCPCS: 36415; 80053; 82010; 82947; 84484; 85025; 85610; 85730; 93005; 99283

== ENCOUNTER → 2025-03-08 18:47 | Outpatient (BNV) | payer OTHER, SELFPAY | PROVIDERS: Emergency Provider Internal Medicine; PCP Internal Medicine; Visit Provider Internal Medicine Cardiovascular Disease | DX: R55 Syncope and collapse (principal) | CPT/HCPCS: 93010 ==

== ENCOUNTER 2025-03-10 14:05 | Outpatient (AMB) | payer OTHER, SELFPAY ==
--- NOTE | 2025-03-10 14:25 | MHC.PC.OV ---
Vital Signs 03/10/25 14:37 Height 6 ft 3 in Weight 340 lb BMI 42.5 BP 120/78 Blood Pressure Location Lt brachial Position Sitting Respiration 20 Pulse 73 Pulse Source Pulse Oximeter Temp 98.2 F Temp Source Oral Pulse Oximetry (%) 97 Oxygen Delivery Method Room Air Intake Visit Reasons: ER follow up Intake Note: Pt is here today for ER follow up visit. Allergies amlodipine Allergy (Intermediate, Verified 03/10/25 14:38) Flushing amoxicillin Adverse Reaction (Verified 03/10/25 14:38) Unknown Medication List - Last Reconciled 03/10/25 by Tory Vaughan MD acetaminophen 650 mg (2 x 325 mg) PO Q6H PRN bisoprolol-hydrochlorothiazide 5-6.25 mg 2 tabs PO DAILY blood sugar diagnostic (FreeStyle Lite Strips) Test blood sugar four times per day blood-glucose meter (FreeStyle Lite Meter kit) Test blood sugar once a day Dexcom G7 Patient Biller (blood-glucose,beer merchant,cont) As directed NS Dexcom G7 Sensor (blood-glucose sensor) As directed NS docusate sodium 100 mg PO BID famotidine (Pepcid) 40 mg PO BEDTIME furosemide 20 mg PO Q OTHER DAY gabapentin 300 mg PO BEDTIME insulin glargine (Lantus Solostar U-100 Insulin) 40 units (0.4 mL) subcut QPM lancets (FreeStyle Lancets) Test blood sugar four times per day lidocaine 4% (Lidocaine Pain Relief) 1 patch See Protocol transdermal DAILY lisinopril 40 mg PO DAILY metformin ER 500 mg PO BID 90 days pen needle, diabetic (Comfort EZ Pen [place]) As directed pen needle, diabetic (Easy Comfort Pen [place]) Administer insulin daily as directed polyethylene glycol 3350 17 grams PO DAILY Tobacco use date assessed: 03/07/25 Dental Screening Dental Screen Date: 10/21/24 HPI ER follow up HPI Details Patient presents for the follow-up of ER visit. He had episode of lightheadedness and fainting when walking and his friend called the ambulance. Patient was brought to the ER. His blood glucose was in the 200's. Patient denies episode of increased sweating chest pain palpitations loss of consciousness or seizure activity. He is homeless and has been selling his food stamps in order to have money for a motel room to keep his insulin refrigerator. He received a Dexcom sensor this week but because of increased sweating the sensor came out and was showing abnormally low blood glucose readings. Patient has not been eating regular meals because of limited access to food. He had a few educational sessions with a nurse navigator about ADA diet and medication compliance. [facility] Medical History Homelessness Insulin dependent type 2 diabetes mellitus CHAMBERS (dyspnea on exertion) Eczema Obesity Hypertension PTSD (post-traumatic stress disorder) Depression Anxiety Polydrug abuse Surgical History History of appendectomy Family History Father Hypertension Mother No problems noted. Social History Household Members: None Housing: Homeless Housing Other:: homeless Do you presently have visiting nurse or other home services: No Alcohol intake: current Alcohol intake frequency: holidays/special occasions only Patient Tobacco Use Status: Current someday Tobacco user Tobacco use type: Cigarette Cigarettes Per Day: 2 Years Smoked: 3 e-Cigarette/Vaping Use: Never Used Second Hand Smoke Exposure: No service: No Current occupational status: unemployed Cognitive needs: No Hearing needs: No Vision needs: No Questionnaire Thrive Questionnaire Date Thrive assessed: 01/19/25 I am a: Patient What is your living situation today?: I do not have a steady places to live I am living on [address] Within the past 12 months, did the food you bought not last and you didn't have the money to get more?: Often true Within the past 12 months, did you worry whether your food would run out before you got money to buy more?: Often true Do you have trouble paying for medicines?: No Do you have trouble getting transportation to medical appointments?: Yes Do you have trouble paying your heating and electricity bill?: No Do you have trouble taking care of your child, family member or friend?: No Do you have trouble with day-to-day activities such as bathing, preparing meals, shopping, managing finances, etc.?: Yes Are you currently unemployed and looking for a job?: Yes Are you interested in more education?: Yes THRIVE Score: 4 VIANNEY-7 AMB Questionnaire VIANNEY-7 Date VIANNEY - 7 assessed: 01/19/25 Source: Developed by DrsKg Isidro, Helga Bolanos, Carlin Murillo and colleagues, with an educational codey from [employer]. Review of Systems Const All systems reviewed & are unremarkable except as noted in HPI and below Eyes Reports no additional complaints ENT Reports no additional complaints Card Reports no additional complaints Resp Reports no additional complaints GI Reports no additional complaints Reports no additional complaints Physical exam (Primary Care) Vital Signs: Last Vital Signs Temp 98.2 F 03/10/25 14:37 Pulse 73 03/10/25 14:37 Resp 20 03/10/25 14:37 BP 120/78 03/10/25 14:37 Pulse Ox 97 03/10/25 14:37 Oxygen Delivery Method Room Air 03/10/25 14:37 BMI result Body Mass Index 42.5 Tobacco/Smoking Status: Tobacco use Status Tobacco use date assessed 03/07/25 03/10/25 14:26 Patient Tobacco Use Status Current someday Tobacco 03/10/25 14:26 Tobacco use type Cigarette 03/10/25 14:26 e-Cigarette/Vaping Use Never Used 03/10/25 14:26 Thrive Assessment: Date of Thrive Assessment Date Thrive assessed 01/19/25 03/10/25 14:26 Const General: no acute distress HENMT Head: Yes normal to inspection Eyes General: appearance normal, both eyes and all related structures Resp Effort & Inspection: normal respiratory effort Auscultation: clear to auscultation bilaterally Cardio Rhythm: regular rhythm Heart sounds: S1 normal heart sound present and S2 normal heart sound present GI Inspection: Yes normal to inspection Palpation (GI): Soft to palpation Percussion: Yes normal to percussion Auscultation: normal bowel sounds Results AMB Random Glucose (hemocue) AMB Random Glucose (hemocue) 184 mg/dL Last Edit by Fredy Sandoval CMA on 03/10/25 14:25 Results Reviewed Results Reviewed: Laboratory Last Values Random Glu (Clinic) 184 mg/dL 03/10/25 14:24 Coding Level of Care Code Est Pt Level 3 (13326) Diagnoses Homelessness Z59.00 Insulin dependent type 2 diabetes mellitus E11.9; Z79.4 Assessment & Plan Assessment & Plan (1) Homelessness: Code(s): Z59.00 - Homelessness unspecified Category: Social Hx Plan: Patient is established with the social media sr strategy manager (2) Insulin dependent type 2 diabetes mellitus: Code(s): E11.9 - Type 2 diabetes mellitus without complications; Z79.4 - terminal computer operator (current) use of insulin Category: Medical Plan: ADA diet medications compliance discussed with the patient, Dexcom G7 is medically necessary for the patient to monitor for hypoglycemia being on insulin and having limited access to food. Patient was advised to double check with glucometer any hypo or hyperglycemia readings. He was prescribed glucose tablets to use for emergency only. Orders: Orders AMB Random Glucose (hemocue) Today Z13.9 - Encounter for screening, unspecified Medications: New glucose (Dex4 Glucose) until symptoms of low blood sugar are controlled 4 grams PO Q15M PRN 60 tabs 3RF hypoglycemia Refilled Dexcom G7 Patient Biller (blood-glucose,beer merchant,cont) As directed 1 ea 4RF NS Dexcom G7 Sensor (blood-glucose sensor) As directed 3 ea 5RF NS
[2025-03-10 14:37] VITALS: BP 120/78; PULSE 73; RESP 20; TEMP 36.8; O2SAT 97; BMI 42.5
== END 2025-03-10 15:50 | disposition home or self-care (01) ==
LOC: HO.HMCC 14:06
PROVIDERS: PCP Internal Medicine; Visit Provider Internal Medicine
DX: Z59.00 Homelessness unspecified (principal); E11.9 Type 2 diabetes mellitus without complications; Z79.4 Long term (current) use of insulin; Z13.9 Encounter for screening, unspecified

== ENCOUNTER → 2025-03-10 14:05 | Outpatient (BNVA) | payer OTHER, SELFPAY | PROVIDERS: PCP Internal Medicine; Visit Provider Internal Medicine | DX: E11.9 Type 2 diabetes mellitus without complications (principal); R42 Dizziness and giddiness; Z79.4 Long term (current) use of insulin; Z59.02 Unsheltered homelessness | CPT/HCPCS: 82948; 99212 ==

== ENCOUNTER 2025-04-04 10:43 | Outpatient (AMB) | payer OTHER, SELFPAY ==
[2025-04-04 11:08] VITALS: BP 136/96; PULSE 78; RESP 20; TEMP 36.4; O2SAT 97; BMI 43.1
--- NOTE | 2025-04-04 11:08 | A.OFFPC_ITS ---
Vital Signs 04/04/25 11:08 04/04/25 12:30 Height 6 ft 3 in Weight 345 lb BMI 43.1 BP 136/96 H 135/88 Blood Pressure Location Lt brachial Rt brachial Position Sitting Sitting Respiration 20 Pulse 78 Pulse Source Pulse Oximeter Temp 97.6 F Temp Source Oral Pulse Oximetry (%) 97 Oxygen Delivery Method Room Air Intake Visit Reasons: Headaches Intake Note: Pt is here today for a sick visit. Pt c/o headaches, feeling dizzy. Allergies amlodipine Allergy (Intermediate, Verified 04/04/25 11:18) Flushing amoxicillin Adverse Reaction (Verified 04/04/25 11:18) Unknown Medication List - Last Reconciled 04/04/25 by Tory Vaughan MD acetaminophen 650 mg (2 x 325 mg) PO Q6H PRN bisoprolol-hydrochlorothiazide 5-6.25 mg 2 tabs PO DAILY blood sugar diagnostic (FreeStyle Lite Strips) Test blood sugar four times per day blood-glucose meter (FreeStyle Lite Meter kit) Test blood sugar once a day Dexcom G7 Clip Loading Machine Adjuster (blood-glucose,iron erector,cont) As directed NS Dexcom G7 Sensor (blood-glucose sensor) As directed NS docusate sodium 100 mg PO BID famotidine (Pepcid) 40 mg PO BEDTIME gabapentin 300 mg PO BEDTIME glucose (Dex4 Glucose) 4 grams PO Q15M PRN insulin glargine (Lantus Solostar U-100 Insulin) 40 units (0.4 mL) subcut QPM lancets (FreeStyle Lancets) Test blood sugar four times per day lidocaine 4% (Lidocaine Pain Relief) 1 patch See Protocol transdermal DAILY lisinopril 40 mg PO DAILY metformin ER 500 mg PO QPM 90 days pen needle, diabetic (Comfort EZ Pen [place]) As directed pen needle, diabetic (Easy Comfort Pen [place]) Administer insulin daily as directed polyethylene glycol 3350 17 grams PO DAILY Tobacco use date assessed: 04/04/25 Dental Screening Dental Screen Date: 10/21/24 HPI Headaches HPI Details Patient complains of feeling tired having needle like sensation in his extremities on and off for few months. Patient denies dyspnea on exertion chest pain shortness or breath palpitations. He reports having more frequent headaches frontal but denies any change in the vision, weakness in extremities, change in the balance. Patient would like to be tested for HIV and hepatitis. He reports improved fasting glucose readings to less than 160. [facility] Medical History Insulin dependent type 2 diabetes mellitus CHAMBERS (dyspnea on exertion) Eczema Obesity Hypertension PTSD (post-traumatic stress disorder) Depression Anxiety Polydrug abuse Surgical History History of appendectomy Family History Father Hypertension Mother No problems noted. Social History Household Members: None Housing: Homeless Housing Other:: homeless Do you presently have visiting nurse or other home services: No Alcohol intake: current Alcohol intake frequency: holidays/special occasions only Patient Tobacco Use Status: Current someday Tobacco user Tobacco use type: Cigarette Cigarettes Per Day: 2 Years Smoked: 3 e-Cigarette/Vaping Use: Never Used Second Hand Smoke Exposure: No service: No Current occupational status: unemployed Cognitive needs: No Hearing needs: No Vision needs: No Questionnaire Thrive Questionnaire Date Thrive assessed: 01/19/25 I am a: Patient What is your living situation today?: I do not have a steady places to live I am living on the [address] Within the past 12 months, did the food you bought not last and you didn't have the money to get more?: Often true Within the past 12 months, did you worry whether your food would run out before you got money to buy more?: Often true Do you have trouble paying for medicines?: No Do you have trouble getting transportation to medical appointments?: Yes Do you have trouble paying your heating and electricity bill?: No Do you have trouble taking care of your child, family member or friend?: No Do you have trouble with day-to-day activities such as bathing, preparing meals, shopping, managing finances, etc.?: Yes Are you currently unemployed and looking for a job?: Yes Are you interested in more education?: Yes THRIVE Score: 4 VIANNEY-7 AMB Questionnaire VIANNEY-7 Date VIANNEY - 7 assessed: 01/19/25 Source: Developed by Drs. Jose G Isidro, Carlin Yadva nd colleagues, with an educational codey from [employer]. Review of Systems Const All systems reviewed & are unremarkable except as noted in HPI and below Eyes Reports no additional complaints ENT Reports no additional complaints Card Reports no additional complaints Resp Reports no additional complaints GI Reports no additional complaints Reports no additional complaints Physical exam (Primary Care) Vital Signs: Last Vital Signs Temp 97.6 F 04/04/25 11:08 Pulse 78 04/04/25 11:08 Resp 20 04/04/25 11:08 BP 136/96 H 04/04/25 11:08 Pulse Ox 97 04/04/25 11:08 Oxygen Delivery Method Room Air 04/04/25 11:08 BMI result Body Mass Index 43.1 Tobacco/Smoking Status: Tobacco use Status Tobacco use date assessed 04/04/25 04/04/25 11:18 Patient Tobacco Use Status Current someday Tobacco 04/04/25 11:09 Tobacco use type Cigarette 04/04/25 11:09 e-Cigarette/Vaping Use Never Used 04/04/25 11:09 Thrive Assessment: Date of Thrive Assessment Date Thrive assessed 01/19/25 04/04/25 11:09 Const General: no acute distress HENMT Head: Yes normal to inspection Throat: Yes posterior oropharynx normal Neck Neck: Yes supple Resp Effort & Inspection: normal respiratory effort Auscultation: clear to auscultation bilaterally Cardio Rhythm: regular rhythm Heart sounds: S1 normal heart sound present and S2 normal heart sound present GI Inspection: Yes normal to inspection Palpation (GI): Soft to palpation Percussion: Yes normal to percussion Auscultation: normal bowel sounds Coding Level of Care Code Est Pt Level 4 (55152) Diagnoses Hypertension, unspecified type I10 Hypertension type: unspecified Insulin dependent type 2 diabetes mellitus E11.9; Z79.4 Assessment & Plan Assessment & Plan (1) Hypertension: Code(s): I10 - Essential (primary) hypertension Category: Medical Qualifiers: Hypertension type: unspecified Qualified Code(s): I10 - Essential (primary) hypertension Plan: Blood pressure is elevated. Patient will continue bisoprolol 2 tablets a day and lisinopril and nifedipine ER 30 mg will be added. Patient will have blood work today (2) Insulin dependent type 2 diabetes mellitus: Code(s): E11.9 - Type 2 diabetes mellitus without complications; Z79.4 - buttermaker continuous churn (current) use of insulin Category: Medical Plan: Continue ADA diet regular exercise insulin and metformin A1c today Orders: Orders Complete Blood Count Auto Diff Today E11.9 - Type 2 diabetes mellitus without complications, I10 - Essential (primary) hypertension, Z79.4 - detention (current) use of insulin Hepatitis B,C Profile Today E11.9 - Type 2 diabetes mellitus without complications, I10 - Essential (primary) hypertension, Z79.4 - buttermaker continuous churn (current) use of insulin Vitamin B12 and Folate Today F41.9 - Anxiety disorder, unspecified Hemoglobin A1c Today E11.9 - Type 2 diabetes mellitus without complications, Z79.4 - detention (current) use of insulin Comprehensive Met. Panel Today E11.9 - Type 2 diabetes mellitus without complications, I10 - Essential (primary) hypertension, Z79.4 - detention (current) use of insulin HIV Ab/Ag Today E11.9 - Type 2 diabetes mellitus without complications, I10 - Essential (primary) hypertension, Z79.4 - buttermaker continuous churn (current) use of insulin TSH reflex Free T4 Today F41.9 - Anxiety disorder, unspecified Vitamin B1 Today F41.9 - Anxiety disorder, unspecified AMB EKG-In Office Today I10 - Essential (primary) hypertension, R06.09 - Other forms of dyspnea Medications: New nifedipine ER 30 mg PO DAILY 90 tabs 1RF Changed From metformin ER 500 mg PO BID 90 days 180 tabs 2RF To metformin ER 500 mg PO QPM 90 tabs 2RF 90 days Discontinued furosemide Discontinued Reason: Doctor's Order 20 mg PO Q OTHER DAY 30 tabs 2RF
[2025-04-04 12:30] VITALS: BP 135/88
== END 2025-04-04 12:34 | disposition home or self-care (01) ==
LOC: HO.HMCC 10:44
PROVIDERS: PCP Internal Medicine; Visit Provider Internal Medicine
DX: I10 Essential (primary) hypertension (principal); E11.9 Type 2 diabetes mellitus without complications; Z79.4 Long term (current) use of insulin

== ENCOUNTER 2025-04-04 10:43 | Outpatient (REF) | payer OTHER, SELFPAY ==
[2025-04-04 14:19] LABS: MANUAL DIFF FLAG NO
[2025-04-04 14:22] LABS: Hematocrit 44.0 % (42.0-52.0); Hemoglobin 15.4 g/dl (14.0-18.0); Imm Gran Abs Auto 0.10 X10*3/uL (0.00-0.03); Imm Gran Pct Auto 0.9 % (0.0-0.4); Lymphocytes Absolute Auto 2.2 X10*3/uL (1.2-4.9); Mean Corpuscular HGB Conc 35.0 g/dl (31.0-36.0); Mean Corpuscular Hemoglobin 28.8 pg (27.0-33.0); Mean Corpuscular Volume 82.4 fL (80.0-98.0); NRBC Abs Auto 0.000 X10*3/uL (0.0-0.012); NRBC Pct Auto 0.0 /100WBC (0.0-0.2); Platelet Count 247 X10*3/uL (160-400); Red Blood Count 5.34 X10*6/uL (4.60-5.80); White Blood Count 10.6 X10*3/uL (4.8-10.8)
[2025-04-04 15:02] LABS: Alanine Aminotransferase 73 U/L (0-40); Albumin Level 4.3 g/dL (3.5-5.0); Alkaline Phosphatase 60 U/L (39-117); Anion Gap 13 (12-20); Aspartate Amino Transferase 37 U/L (5-37); Blood Urea Nitrogen 15 mg/dL (9-16); Calcium 8.9 mg/dL (8.4-10.2); Carbon Dioxide 26 mmol/L (22-29); Chloride 105 mmol/L (96-108); Estimated Glomerular Filt Rate > 60; Potassium 4.0 mmol/L (3.3-5.1); Sodium 140 mmol/L (135-145); Total Protein 6.9 g/dL (6.5-8.0)
[2025-04-04 15:29] LABS: Folate 10.7 ng/mL (> or = 4.0); Vitamin B12 344 pg/mL (200-900)
[2025-04-05 03:30] LABS: HBS Num1 11.52 mIU/mL (0-7.99); HBc Num1 0.04 S/CO (0.00-0.79); HBsAGNum1 0.30 S/CO (0.00-0.99); HIV Num 1 0.05 S/CO (0.00-0.99); Hepatitis B Surface Antigen Negative (Negative); ~HepC Num1 0.11 S/CO (0.00-0.79); ~Hepatitis C Antibody Nonreactive (Nonreactive)
[2025-04-05 04:24] LABS: HBS Num2 11.75 mIU/mL (0-7.99); HBS Num3 11.12 mIU/mL (0-7.99); ~Hepatitis B Surface Antibody GRAYZONE (Nonreactive)
== END 2025-04-04 10:44 | disposition home or self-care (01) ==
LOC: HO.HMGCLDS 10:43
PROVIDERS: PCP Internal Medicine; Visit Provider Internal Medicine
DX: I10 Essential (primary) hypertension (principal); E11.9 Type 2 diabetes mellitus without complications; F41.9 Anxiety disorder, unspecified; Z79.4 Long term (current) use of insulin; Z79.84 Long term (current) use of oral hypoglycemic drugs; Z79.899 Other long term (current) drug therapy
CPT/HCPCS: 36415; 80053; 82607; 82746; 84425; 84443; 85025; 86704; 86706; 86803; 87340; 87389; 99212

== ENCOUNTER 2025-05-29 16:14 | Emergency (ER) | payer OTHER, SELFPAY ==
--- NOTE | ~2025-05-29 | CT_ITS ---
CLINICAL HISTORY: headache CT head without contrast Comparison: None provided Findings: No intra-axial mass, midline shift, hydrocephalus, or acute hemorrhage. No significant atrophy-like change or white matter disease. Retro cerebellar arachnoid cysts measuring 2.3 cm in AP dimension causing mild mass effect to the cerebellum. The visualized paranasal sinuses and mastoid air cells are normal. The orbits are within normal limits. No skull fracture. IMPRESSION: 1. No acute intracranial findings. 2. Retro cerebellar arachnoid cysts measuring 2.3 cm in AP dimension causing mild mass effect to the cerebellum. This document has been electronically signed by: Manda Reynolds MD on 05/29/2025 20:32:06
[2025-05-29 16:37] VITALS: BP 145/83; PULSE 70; RESP 20; TEMP 37.1; O2SAT 99; BMI 46.0
--- NOTE | 2025-05-29 16:44 | ED_ITS ---
HPI - General Adult General Chief complaint: General Medical Stated complaint: not feeling well, diabetic Time Seen by Provider: 05/29/25 18:46 Source: patient and family Mode of arrival: ambulatory Limitations: no limitations History of Present Illness ED Provider: DR. Cardoza HPI narrative: 44-year-old male history of diabetes controlled with insulin admit for main came in for evaluation of generalized weakness and no energy for the past 3-4 days, wake up every morning with headache that progress throughout the day for the past few days, also complained of chest pain that is on and off localized to the left chest area with no radiation,otherwise no fever, no chills, patient currently is taking antibiotic for boil under his left armpit, no nausea, no vomiting, no weakness, no numbness, no double vision, no blurry vision, no abdominal pain, no nausea, no vomiting, no diarrhea. No photophobia, no neck stiffness. Related Data Previous Rx's ?Medication ?Instructions ?Recorded acetaminophen 325 mg tablet 650 mg (2 x 325 mg) PO Q6H PRN 10/08/24 Pain, Mild 1-3,Fever,Headache #20 tabs docusate sodium 100 mg capsule 100 mg PO BID #30 caps 10/08/24 lidocaine 4 % topical patch 1 patch transdermal DAILY #7 ea 10/08/24 (Lidocaine Pain Relief) polyethylene glycol 3350 17 gram 17 g PO DAILY #30 ea 10/08/24 oral powder packet gabapentin 300 mg capsule 300 mg PO BEDTIME #90 caps 0 10/21/24 blood-glucose meter (FreeStyle #1 ea 12/21/24 Lite Meter kit) lisinopril 40 mg tablet 40 mg PO DAILY #90 tabs 12/27 06/22 pen needle, diabetic 31 gauge x #100 ea 01/19/2510/01 (Comfort EZ Pen [place]) pen needle, diabetic 32 gauge x #100 ea 01/20/25 (Easy Comfort Pen [place]) blood sugar diagnostic (FreeStyle #300 ea 02/09/25 Lite Strips) lancets 28 gauge (FreeStyle #300 ea 02/09/25 Lancets) bisoprolol 5 2 tab PO DAILY #180 tabs 07/22 mg-hydrochlorothiazide 6.25 mg tablet famotidine 40 mg tablet (Pepcid) 40 mg PO BEDTIME #90 tabs 03/07/25 Dexcom G7 S3B Multi Sensor Operator #1 ea 03/10/25 (blood-glucose,coal pulverizer operator,cont) Dexcom G7 Sensor (blood-glucose #3 ea 03/10/25 sensor) glucose 4 gram chewable tablet 4 g PO Q15M PRN hypogly cemia #60 03/10/25 (Dex4 Glucose) tabs metformin 500 mg tablet,extended 500 mg PO QPM 90 days #90 tabs 04/04/25 release 24 hr nifedipine 30 mg tablet,extended 30 mg PO DAILY #90 ta bs 04/04/25 release insulin glargine 100 unit/mL (3 60 unit (0.6 mL) subcu t QPM #15 mL 04/13/25 mL) subcutaneous pen (Lantus Solostar U-100 Insulin) Allergies Allergy/AdvReac Type Severity Reaction Status Date / Time amlodipine Allergy Intermediate Flushing Verified 05/29/25 16:40 amoxicillin AdvReac Unknown Verified 05/29/25 16:40 Review of Systems 2 Review of Systems: All other systems are reviewed and are negative Constitutional: Reports as per HPI and Reports no additional constitutional complaints Eyes: Reports as per HPI and Reports no additional eye complaints Reports system reviewed and no additional complaints, except as documented Cardiovascular: Reports as per HPI and Reports no additional cardiovascular complaints Respiratory: Reports as per HPI and Reports no additional respiratory complaints Gastrointestinal: Reports as per HPI and Reports no additional gastrointestinal complaints Genitourinary: Reports no additional female genitourinary complaints Musculoskeletal: Reports no additional musculoskeletal complaints Skin/Breast: Reports system reviewed and no additional complaints, except as docu Psychiatric: Reports no additional psychiatric complaints Endocrine: Reports no additional endocrine complaints Hematologic/Lymphatic: Reports no additional hematologic/lymphatic complaints Allergic/Immunologic: Reports no additional allergic/immunologic complaints Reports system reviewed and no additional complaints, except as documented and Reports Abnormal speech present [facility] Past Medical History Medical History Homelessness Insulin dependent type 2 diabetes mellitus CHAMBERS (dyspnea on exertion) Eczema Obesity Hypertension PTSD (post-traumatic stress disorder) Depression Anxiety Polydrug abuse Surgical History History of appendectomy Family History Family History Father Hypertension Mother No problems noted. Social History Social History Household Members: None Housing: Homeless Housing Other:: homeless Do you presently have visiting nurse or other home services: No Alcohol intake: current Alcohol intake frequency: holidays/special occasions only Patient Tobacco Use Status: Current someday Tobacco user Tobacco use type: Cigarette Cigarettes Per Day: 2 Years Smoked: 3 e-Cigarette/Vaping Use: Never Used Second Hand Smoke Exposure: No service: No Current occupational status: unemployed Cognitive needs: No Hearing needs: No Vision needs: No Physical Exam ED Vital Signs: Vital Signs - 24 hr 05/29/25 21:14 05/29/25 22:39 Temperature 97.8 F 97.8 F Pulse Rate 98 98 Respiratory Rate 18 18 Blood Pressure 147/76 H 147/76 H Pulse Oximetry 98 Oxygen Delivery Method Room Air BMI result Body Mass Index 46.0 Vital signs have been reviewed and appear to be correct. Blood pressure elevated. Heart rate normal. Respiratory rate normal. Temperature normal. Oxygen saturation normal. Appearance: Alert. Oriented X3. No acute distress. Head: Normal external exam. Normocephalic. Atraumatic. No [place] signs noted. No raccoon eyes noted Eyes: PERRLA. EOMI. Conjunctiva and sclera normal. Eyelids normal. ENT: TM's Normal. Pharynx normal. Uvula midline. Moist mucous membranes. No trismus noted. No drooling noted. No muffled voice noted. Neck: Normal inspection. Neck supple. FROM. No adenopathy. Thyroid Normal. No meningeal signs. No neck mass noted. CVS: Normal heart rate and rhythm. Heart sound normal. No murmurs noted. Pulses normal throughout. Respiratory: No respiratory distress. Painless inspiration. Breath sounds normal. No wheezes/rales/rhonchi noted. Chest nontender. No accessory muscle usage noted or decreased air movement noted. Abdomen: Soft and nontender. Bowel sounds normal in all 4 quadrants. No distention noted. No organomegaly noted. No visible injury noted. Back: No CVA tenderness. Full range of motion noted. Skin: Skin warm and dry. Normal skin color. Normal skin turgor. No rashes/lesions/lacerations noted. Extremities: Left arm pit exam: No abscess, no fluctuation, no cellulitis. Neuro: Mental status: Normal attention, orientation, memory, and affect. Cranial nerves: Pupils are equal, round and reactive to light, EOMI, visual long are fall, face is symmetric, facial sensations are normal. Motor examination normal muscle tone, strength to 4 extremities. DTR are +2, planter's are flexor. Sensory exam; normal coordination, no ataxia, gait stable. Cerebellar exam: Hotrwv-qk-oqva and vylk-ep-huxt is normal. Extrapyramidal system: No tremors, no rigidity with normal facial expressions. Pronator drift not present NIH Stroke Scale Time: 20:16 Level of Consciousness: Responds only with reflex motor or autonomic effects, or unresponsive Level of Consciousness Questions: Answers both questions correctly Level of Consciousness Commands: Performs both tasks correctly Best Gaze: Normal Visual: No visual loss Facial Palsy: Normal Motor Arm (Right): No drift Motor Arm (Left): No drift Motor Leg (Right): No drift Motor Leg (Left): No drift Limb Ataxia: Absent Sensory: Normal Best Language: No aphasia Dysarthia: Normal Extinction and Inattention: No abnormality Score: 3 Course Course Course Narrative: RME: 44 yold male with pmh of Diabetes presents to ED for not feeling well. Patient states headache every day for the last few days dizziness, lethargy, fatigue without any chest pain or shortness of breath. Patient does states left axillary boil which is currently on antibiotics. Patient states he does not feel right. NIH score is 0 Reevaluation(s) Reevaluation #1: patient feels better with IV hydration and IV Tylenol, head CT is unremarkable, normal neuro exam, NIH score is 0. Patient is already on antibiotic for left axillary folliculitis, no fluctuation, no obvious abscess to I and D. No signs of infection no workup today. Will discharge to follow-up with PCP. Time: 20:39 Medications Administered Discontinued Medications Generic Name Dose Route Start Last Admin Trade Name Freq PRN Reason Stop Dose Admin Sodium Chloride 1,000 mls @ 999 mls/hr 05/29/25 18:53 05/29/25 22:39 Ns IV 05/29/25 19:53 Infused .Q1H1M ONE Infusion Acetaminophen 1,000 mg in 100 mls @ 400 mls/hr 05/29/25 18:54 05/29/25 20:07 Ofirmev IV 05/29/25 19:08 Infused ONCE ONE Infusion Medical Decision Making Differential Diagnosis Differential Diagnoses: The differential diagnosis associated with the presentation includes ( Hemorrhagic stroke, ischemic stroke, electrolyte derangement, complicated hyperglycemia, UTI, pneumonia.) Admission/Observation Consideration of admission/observation: Escalation of care including admission/observation considered Lab Data MDM Lab Attestation statement: I reviewed the patient's lab results. 05/29/25 17:10 05/29/25 17:10 Labs: Lab Results 05/29/25 05/29/25 Range/Units 17:10 19:19 WBC 10.9 H (4.8-10.8) X10*3/uL RBC 5.05 (4.60-5.80) X10*6/uL Hgb 14.6 (14.0-18.0) g/dl Hct 41.5 L (42.0-52.0) % MCV 82.2 (80.0-98.0) fL MCH 28.9 (27.0-33.0) pg MCHC 35.2 (31.0-36.0) g/dl RDW 12.5 (11.0-16.0) % Plt Count 254 (160-400) X10*3/uL MPV 11.8 (9.4-12.4) fL Immature Gran % (Auto) 0.5 H (0.0-0.4) % Neut % (Auto) 67.4 (45-73) % Lymph % (Auto) 22.4 (20-40) % [place] % (Auto) 6.6 (2-11) % Eos % (Auto) 2.4 (0-4) % Baso % (Auto) 0.7 (0-2) % Lymph # (Auto) 2.4 (1.2-4.9) X10*3/uL [place] # (Auto) 0.7 (0.1-1.2) X10*3/uL Eos # (Auto) 0.3 (0.0-0.4) X10*3/uL Baso # (Auto) 0.1 (0.0-0.2) X10*3/uL Abs Immat Gran (auto) 0.05 H (0.00-0.03) X10*3/uL Absolute Neuts (auto) 7.3 (2.0-8.3) x10*3/uL Absolute Nucleated RBC 0.000 (0.0-0.012) X10*3/uL Nucleated RBC % (auto) 0.0 (0.0-0.2) /100WBC PT 10.7 L (10.9-12.4) SEC INR 0.9 (0.9-1.1) APTT 27.6 (26.7-34.1) SEC Sodium 142 (135-145) mmol/L Potassium 3.8 (3.3-5.1) mmol/L Chloride 102 (96-108) mmol/L Carbon Dioxide 26 (22-29) mmol/L Anion Gap 18 (12-20) BUN 18 H (9-16) mg/dL Creatinine 1.12 (0.5-1.4) mg/dL Estim Creat Clear Calc 132.4 Estimated GFR > 60 Random Glucose 172 H (60-115) mg/dL Calcium 8.5 (8.4-10.2) mg/dL Total Bilirubin 0.2 (0.0-1.0) mg/dL AST 37 (5-37) U/L ALT 63 H (0-40) U/L Alkaline Phosphatase 60 (39-117) U/L Troponin I High Sens 8.3 (<3.5-35.0) ng/L Total Protein 6.7 (6.5-8.0) g/dL Albumin 4.0 (3.5-5.0) g/dL Urine Color Yellow Urine Appearance Clear Urine pH 5.5 (5.0-9.0) Ur Specific [place] >= 1.030 H (1.005-1.025) Urine Protein Negative (Neg-Trace) mg/dL Urine Glucose (UA) 250 H (Negative) mg/dL Urine Ketones Trace (Negative) mg/dL Urine Blood Negative (Negative) Urine Nitrite Negative (Negative) Ur Leukocyte Esterase Negative (Negative) COVID-19 (FREDERICK) Negative (Negative) COVID-19 Clin Com See Note Influenza Type A (MENA) Negative (Negative) Influenza Type B (MENA) Negative (Negative) Influenza A & B Note See Note Independent Interpretation I performed an independent interpretation of an: CT Scan ( head:. No acute intracranial findings. 2. Retro cerebellar arachnoid cysts measuring 2.3 cm in AP dimension causing mild mass effect to the cerebellum.) Radiology Impression Discussion of test interpretation with radiology: I have reviewed the radiologist's reading. Chronic Conditions Patient?s care impacted by: Diabetes Discharge Plan Discharge Clinical Impression: Episode of generalized weakness Patient Disposition: Home, Self-Care Instructions: Diabetes and Exercise (ED) Additional Instructions: drink plenty of fluids, take Tylenol 500 mg ( [id number]-[id number] medication) every 6 hours if needed for pain. Prescriptions: No Action (DME) blood-glucose meter [FreeStyle Lite Meter] Kit See Rx Instructions .Route Qty: 1 0RF Rx Instructions: Test blood sugar once a day lisinopril 40 mg tablet 40 mg PO DAILY Qty: 90 2RF (DME) pen needle, diabetic [Easy Comfort Pen [place]] 32 gauge x 5/32 needle See Rx Instructions .Route Qty: 100 3RF Rx Instructions: Administer insulin daily as directed (DME) FreeStyle Lite Strips Strip See Rx Instructions .Route Qty: 300 3RF Rx Instructions: Test blood sugar four times per day (DME) lancets [FreeStyle Lancets] 28 gauge misc See Rx Instructions .Route Qty: 300 3RF Rx Instructions: Test blood sugar four times per day insulin glargine [Lantus Solostar U-100 Insulin] 100 unit/mL (3 mL) insulin pen 60 unit subcut QPM Qty: 15 5RF acetaminophen 325 mg Tablet 650 mg PO Q6H PRN (Reason: Pain, Mild 1-3,Fever,Headache) Qty: 20 0RF lidocaine [Lidocaine Pain Relief] 4 % Adhesive Patch,Medicated 1 patch transdermal DAILY Qty: 7 0RF Protocol: Apply to: Apply to: Pain area polyethylene glycol 3350 17 gram Powder In Packet 17 g PO DAILY Qty: 30 0RF docusate sodium 100 mg Capsule 100 mg PO BID Qty: 30 0RF gabapentin 300 mg capsule 300 mg PO BEDTIME Qty: 90 3RF (DME) pen needle, diabetic [Comfort EZ Pen [place]] 31 gauge x 1/4 needle See Rx Instructions .Route Qty: 100 0RF Rx Instructions: As directed bisoprolol-hydrochlorothiazide 5-6.25 mg tablet 2 tab PO DAILY Qty: 180 3RF famotidine [Pepcid] 40 mg tablet 40 mg PO BEDTIME Qty: 90 0RF glucose [Dex4 Glucose] 4 gram tablet,chewable 4 g PO Q15M PRN (Reason: hypoglycemia) Qty: 60 3RF Rx Instructions: until symptoms of low blood sugar are controlled (DME) Dexcom G7 Sensor Device See Rx Instructions .Route Qty: 3 5RF Rx Instructions: As directed (DME) Dexcom G7 S3B Multi Sensor Operator Misc See Rx Instructions .Route Qty: 1 4RF Rx Instructions: As directed metformin 500 mg tablet extended release 24 hr 500 mg PO QPM 90 Days Qty: 90 2RF nifedipine 30 mg tablet extended release 30 mg PO DAILY Qty: 90 1RF Referrals: Tory Vaughan MD [Primary Care Provider, Internal Medicine] Discharge Date/Time: 05/29/25 22:41 Print Language: Icelandic
--- NOTE | 2025-05-29 16:48 | ECG_ITS ---
Test Reason : DIZINESS Blood Pressure : */* mmHG Vent. Rate : 71 BPM Atrial Rate : 71 BPM P-R Int : 150 ms QRS Dur : 86 ms QT Int : 410 ms P-R-T Axes : 31 30 42 degrees QTcB Int : 445 ms Normal sinus rhythm Normal ECG When compared with ECG of 08-Mar-2025 18:47, No significant change was found Referred By: Armani Yao Electronically Signed By: Malik Toth
[2025-05-29 17:19] LABS: MANUAL DIFF FLAG NO
[2025-05-29 17:22] LABS: Hematocrit 41.5 % (42.0-52.0); Hemoglobin 14.6 g/dl (14.0-18.0); Imm Gran Abs Auto 0.05 X10*3/uL (0.00-0.03); Imm Gran Pct Auto 0.5 % (0.0-0.4); Lymphocytes Absolute Auto 2.4 X10*3/uL (1.2-4.9); Mean Corpuscular HGB Conc 35.2 g/dl (31.0-36.0); Mean Corpuscular Hemoglobin 28.9 pg (27.0-33.0); Mean Corpuscular Volume 82.2 fL (80.0-98.0); NRBC Abs Auto 0.000 X10*3/uL (0.0-0.012); NRBC Pct Auto 0.0 /100WBC (0.0-0.2); Platelet Count 254 X10*3/uL (160-400); Red Blood Count 5.05 X10*6/uL (4.60-5.80); White Blood Count 10.9 X10*3/uL (4.8-10.8)
[2025-05-29 17:35] LABS: IDNOW Serial# 58CA691E; Influenza B2 Negative (Negative)
[2025-05-29 17:36] LABS: COVID-19 Test Negative (Negative); IDNOW Serial# 55D5AD1C
[2025-05-29 17:45] LABS: Alanine Aminotransferase 63 U/L (0-40); Albumin Level 4.0 g/dL (3.5-5.0); Alkaline Phosphatase 60 U/L (39-117); Anion Gap 18 (12-20); Aspartate Amino Transferase 37 U/L (5-37); Blood Urea Nitrogen 18 mg/dL (9-16); Calcium 8.5 mg/dL (8.4-10.2); Carbon Dioxide 26 mmol/L (22-29); Chloride 102 mmol/L (96-108); Creatinine Clr Calc Pharmacy 132.4; Estimated Glomerular Filt Rate > 60; Partial Thromboplastin Time 27.6 SEC (26.7-34.1); Potassium 3.8 mmol/L (3.3-5.1); Sodium 142 mmol/L (135-145); Total Protein 6.7 g/dL (6.5-8.0)
[2025-05-29 17:46] LABS: INTERNATIONAL NORM RATIO 0.9 (0.9-1.1); Prothrombin Time 10.7 SEC (10.9-12.4)
[2025-05-29 17:52] LABS: Troponin-I High Sensitivity 8.3 ng/L (<3.5-35.0)
[2025-05-29 18:30] VITALS: BP 120/61; PULSE 82; RESP 20; TEMP 36.8; O2SAT 96
[2025-05-29 19:27] LABS: Appearance Urine Clear; Glucose Urine UA 250 mg/dL (Negative); PH 5.5 (5.0-9.0); Specific Gravity - Urine >= 1.030 (1.005-1.025)
[2025-05-29 19:55] VITALS: BP 122/72; PULSE 72; RESP 18; TEMP 36.7; O2SAT 96
[2025-05-29 21:14] VITALS: BP 147/76; PULSE 98; RESP 18; TEMP 36.6; O2SAT 98
[2025-05-29 22:39] VITALS: BP 147/76; PULSE 98; RESP 18; TEMP 36.6
== END 2025-05-29 22:41 | disposition home or self-care (01) ==
PROVIDERS: Physician Assistant; Emergency Provider Emergency Medicine; PCP Internal Medicine
DX: R53.1 Weakness (principal); R51.9 Headache, unspecified; R07.9 Chest pain, unspecified; Z79.4 Long term (current) use of insulin; Z79.899 Other long term (current) drug therapy
CPT/HCPCS: 36415; 70450; 80053; 81003; 84484; 85025; 85610; 85730; 87502; 87635; 93005; 96361; 96374; 99285; J0131

== ENCOUNTER → 2025-05-29 16:48 | Outpatient (BNV) | payer OTHER, SELFPAY | PROVIDERS: Emergency Provider Emergency Medicine; PCP Internal Medicine; Visit Provider Internal Medicine Cardiovascular Disease | DX: R42 Dizziness and giddiness (principal) | CPT/HCPCS: 93010 ==

== ENCOUNTER → 2025-05-29 18:53 | Outpatient (BNV) | payer OTHER, SELFPAY | PROVIDERS: Emergency Provider Emergency Medicine; PCP Internal Medicine; Visit Provider Student in an Organized Health Care Education/Training Program | DX: G93.0 Cerebral cysts (principal) | CPT/HCPCS: 70450 ==

== ENCOUNTER 2025-06-13 11:33 | Outpatient (AMB) | payer OTHER, SELFPAY ==
--- NOTE | 2025-06-13 11:38 | A.OFFPC_ITS ---
Vital Signs 06/13/25 11:39 Height 6 ft 3 in Weight 347 lb BMI 43.4 BP 130/80 Blood Pressure Location Lt brachial Position Sitting Pulse 73 Pulse Source Pulse Oximeter Pulse Oximetry (%) 97 Oxygen Delivery Method Room Air Intake Visit Reasons: follow up Allergies amlodipine Allergy (Intermediate, Verified 06/13/25 11:39) Flushing amoxicillin Adverse Reaction (Verified 06/13/25 11:39) Unknown Medication List - Last Reconciled 06/13/25 by Tory Vaughan MD acetaminophen 650 mg (2 x 325 mg) PO Q6H PRN bisoprolol-hydrochlorothiazide 5-6.25 mg 2 tabs PO DAILY blood sugar diagnostic (FreeStyle Lite Strips) Test blood sugar four times per day blood-glucose meter (FreeStyle Lite Meter kit) Test blood sugar once a day Dexcom G7 Collection Coordinator (blood-glucose,senior security engineer,cont) As directed NS Dexcom G7 Sensor (blood-glucose sensor) As directed NS docusate sodium 100 mg PO BID famotidine (Pepcid) 40 mg PO BEDTIME gabapentin 300 mg PO BEDTIME glucose (Dex4 Glucose) 4 grams PO Q15M PRN insulin glargine (Lantus Solostar U-100 Insulin) 60 units (0.6 mL) subcut QPM lancets (FreeStyle Lancets) Test blood sugar four times per day lidocaine 4% (Lidocaine Pain Relief) 1 patch See Protocol transdermal DAILY lisinopril 40 mg PO DAILY metformin ER 500 mg PO QPM 90 days pen needle, diabetic (Comfort EZ Pen [place]) As directed pen needle, diabetic (Easy Comfort Pen [place]) Administer insulin daily as directed polyethylene glycol 3350 17 grams PO DAILY Tobacco use date assessed: 06/13/25 Dental Screening Dental Screen Date: 10/21/24 HPI follow up HPI Details Patient presents complaining of 3 weeks of nasal congestion sinus pressure pain of face intermittent dry cough and wheezing. Patient denies fever chills shortness or breath pleurisy. He reports fluctuating blood glucose between 100 to 220 due to noncompliance with ADA diet and being homeless. Patient has been taking his medications regularly including 60 units of Lantus insulin. He reports feeling anxious and depressed but denies suicidal ideation. [facility] Medical History Homelessness Insulin dependent type 2 diabetes mellitus CHAMBERS (dyspnea on exertion) Eczema Obesity Hypertension PTSD (post-traumatic stress disorder) Depression Anxiety Polydrug abuse Surgical History History of appendectomy Family History Father Hypertension Mother No problems noted. Social History Household Members: None Housing: Homeless Housing Other:: homeless Do you presently have visiting nurse or other home services: No Alcohol intake: current Alcohol intake frequency: holidays/special occasions only Patient Tobacco Use Status: Current someday Tobacco user Tobacco use type: Cigarette Cigarettes Per Day: 2 Years Smoked: 3 e-Cigarette/Vaping Use: Never Used Second Hand Smoke Exposure: No service: No Current occupational status: unemployed Cognitive needs: No Hearing needs: No Vision needs: No Questionnaire Thrive Questionnaire Date Thrive assessed: 01/19/25 I am a: Patient What is your living situation today?: I do not have a steady places to live I am living on [address] Within the past 12 months, did the food you bought not last and you didn't have the money to get more?: Often true Within the past 12 months, did you worry whether your food would run out before you got money to buy more?: Often true Do you have trouble paying for medicines?: No Do you have trouble getting transportation to medical appointments?: Yes Do you have trouble paying your heating and electricity bill?: No Do you have trouble taking care of your child, family member or friend?: No Do you have trouble with day-to-day activities such as bathing, preparing meals, shopping, managing finances, etc.?: Yes Are you currently unemployed and looking for a job?: Yes Are you interested in more education?: Yes THRIVE Score: 4 VIANNEY-7 AMB Questionnaire VIANNEY-7 Date VIANNEY - 7 assessed: 01/19/25 Source: Developed by Drs. Jose G Isidro, Helga Bolanos, Carlin Murillo and colleagues, with an educational codey from [employer] Review of Systems Const All systems reviewed & are unremarkable except as noted in HPI and below Eyes Reports no additional complaints ENT Reports no additional complaints Card Reports no additional complaints Resp Reports no additional complaints GI Reports no additional complaints Reports no additional complaints Physical exam (Primary Care) Vital Signs: Last Vital Signs Pulse 73 06/13/25 11:39 BP 130/80 06/13/25 11:39 Pulse Ox 97 06/13/25 11:39 Oxygen Delivery Method Room Air 06/13/25 11:39 BMI result Body Mass Index 43.4 Tobacco/Smoking Status: Tobacco use Status Tobacco use date assessed 06/13/25 06/13/25 11:41 Patient Tobacco Use Status Current someday Tobacco 06/13/25 11:41 Tobacco use type Cigarette 06/13/25 11:41 e-Cigarette/Vaping Use Never Used 06/13/25 11:41 Thrive Assessment: Date of Thrive Assessment Date Thrive assessed 01/19/25 06/13/25 11:41 Const General: no acute distress HENMT Ears: TM's normal bilaterally General nose exam: Abnormal mucous membranes and turbinates present erythematous Face and sinus: Yes sinus tenderness Throat: Yes postnasal drainage Eyes General: appearance normal, both eyes and all related structures Neck Neck: Yes supple Resp Effort & Inspection: normal respiratory effort Auscultation: wheezes Cardio Rhythm: regular rhythm Heart sounds: S1 normal heart sound present and S2 normal heart sound present GI Inspection: Yes normal to inspection Palpation (GI): Soft to palpation Results AMB Hemoglobin A1c AMB Hemoglobin A1c 8.2 % Last Edit by Fredy Sandoval CMA on 06/13/25 12: 30 Coding Level of Care Code Est Pt Level 4 (92408) Diagnoses Insulin dependent type 2 diabetes mellitus E11.9; Z79.4 Sinusitis J32.9 Anxiety F41.9 Assessment & Plan Assessment & Plan (1) Insulin dependent type 2 diabetes mellitus: Code(s): E11.9 - Type 2 diabetes mellitus without complications; Z79.4 - terminal make up operator (curre nt) use of insulin Category: Medical Plan: ADA diet increase exercise weight loss discussed with the patient continue current medications. A1c is 8.2 today (2) Sinusitis: Code(s): J32.9 - Chronic sinusitis, unspecified Category: Medical Plan: Z-Chris and prednisone 20 mg for 5 days are prescribed, patient was advised to restart antihistamine loratadine. Albuterol PRN as prescribed patient will follow-up in 1 month (3) Anxiety: Code(s): F41.9 - Anxiety disorder, unspecified Category: Medical Plan: Restart Wellbutrin 150 mg daily follow-up in 1 month Orders: Orders AMB Hemoglobin A1c Today Z13.9 - Encounter for screening, unspecified Medications: New loratadine (Claritin) 10 mg PO DAILY 30 tabs 2RF albuterol sulfate 90 mcg/actuation (Ventolin HFA) 2 puffs inhalation Q6H PRN 8.5 grams 1RF shortness of breath or wheezing 30 days prednisone 20 mg PO DAILY 5 tabs 0RF bupropion HCl XL (Wellbutrin XL) 150 mg PO QAM 30 tabs 1RF bupropion HCl XL (Wellbutrin XL) 150 mg PO QAM 30 tabs 1RF prednisone 20 mg PO DAILY 5 tabs 0RF cetirizine (Zyrtec) 10 mg PO DAILY 90 tabs 0RF loratadine (Claritin) 10 mg PO DAILY 30 tabs 2RF Refilled gabapentin 300 mg PO BEDTIME 90 caps 3RF gabapentin 300 mg PO BEDTIME 90 caps 3RF Discontinued nifedipine ER Discontinued Reason: Doctor's Order 30 mg PO DAILY 90 tabs 1RF
[2025-06-13 11:39] VITALS: BP 130/80; PULSE 73; O2SAT 97; BMI 43.4
== END 2025-06-13 12:34 | disposition home or self-care (01) ==
LOC: HO.HMCC 11:33
PROVIDERS: PCP Internal Medicine; Visit Provider Internal Medicine
DX: E11.9 Type 2 diabetes mellitus without complications (principal); Z79.4 Long term (current) use of insulin; J32.9 Chronic sinusitis, unspecified; F41.9 Anxiety disorder, unspecified; Z13.9 Encounter for screening, unspecified

== ENCOUNTER → 2025-06-13 11:33 | Outpatient (BNVA) | payer OTHER, SELFPAY | PROVIDERS: PCP Internal Medicine; Visit Provider Internal Medicine | DX: E11.9 Type 2 diabetes mellitus without complications (principal); R05.9 Cough, unspecified; R06.2 Wheezing; F41.9 Anxiety disorder, unspecified; F32.A Depression, unspecified; J32.9 Chronic sinusitis, unspecified; Z79.4 Long term (current) use of insulin; Z59.02 Unsheltered homelessness | CPT/HCPCS: 83036; 99212 ==

== ENCOUNTER 2025-07-17 09:45 | Outpatient (AMB) | payer OTHER, SELFPAY ==
[2025-07-17 09:47] VITALS: BP 124/78; PULSE 79; RESP 19; TEMP 36.5; O2SAT 96; BMI 42.6
--- NOTE | 2025-07-17 09:47 | MHC.PC.OV ---
Vital Signs 07/17/25 09:47 Height 6 ft 3 in Weight 341 lb BMI 42.6 BP 124/78 Blood Pressure Location Lt brachial Position Sitting Respiration 19 Pulse 79 Pulse Source Pulse Oximeter Temp 97.7 F Temp Source Oral Pulse Oximetry (%) 96 Oxygen Delivery Method Room Air Intake Visit Reasons: DM followup Intake Note: Pt is here today for a follow up visit on DM. Allergies amlodipine Allergy (Intermediate, Verified 07/17/25 09:48) Flushing amoxicillin Adverse Reaction (Verified 07/17/25 09:48) Unknown Medication List - Last Reconciled 07/17/25 by Tory Vaughan MD acetaminophen 650 mg (2 x 325 mg) PO Q6H PRN albuterol sulfate 90 mcg/actuation (Ventolin HFA) 2 puffs inhalation Q6H PRN 30 days bisoprolol-hydrochlorothiazide 5-6.25 mg 2 tabs PO DAILY blood sugar diagnostic (FreeStyle Lite Strips) Test blood sugar four times per day blood-glucose meter (FreeStyle Lite Meter kit) Test blood sugar once a day bupropion HCl XL (Wellbutrin XL) 150 mg PO QAM cetirizine (Zyrtec) 10 mg PO DAILY Dexcom G7 Plug Overwrap Machine Tender (blood-glucose,ticket printer and tagger,cont) As directed NS Dexcom G7 Sensor (blood-glucose sensor) As directed NS docusate sodium 100 mg PO BID famotidine (Pepcid) 40 mg PO BEDTIME gabapentin 300 mg PO BEDTIME glucose (Dex4 Glucose) 4 grams PO Q15M PRN insulin glargine (Lantus Solostar U-100 Insulin) 60 units (0.6 mL) subcut QPM lancets (FreeStyle Lancets) Test blood sugar four times per day lidocaine 4% (Lidocaine Pain Relief) 1 patch See Protocol transdermal DAILY lisinopril 40 mg PO DAILY loratadine (Claritin) 10 mg PO DAILY metformin ER 500 mg PO QPM 90 days pen needle, diabetic (Comfort EZ Pen [place]) As directed pen needle, diabetic (Easy Comfort Pen [place]) Administer insulin daily as directed polyethylene glycol 3350 17 grams PO DAILY prednisone 20 mg PO DAILY Tobacco use date assessed: 07/17/25 Dental Screening Dental Screen Date: 10/21/24 HPI DM followup HPI Details Patient presents for the follow-up of insulin-dependent diabetes hypertension chronic asthma. Patient has been monitoring his glucose but not regularly. He reports improved fasting blood glucose readings down to 150. He has been trying to follow ADA diet but is homeless and has food stamps and limited access to quality foods. Patient reports using his albuterol inhaler more often almost daily in the fall due to seasonal allergies. He complains of pain in his left testicle the denies any palpable lumps. He denies dysuria or change urinary frequency. [facility] Medical History (Updated 07/17/25 @ 10:38 by Tory Vaughan MD) Homelessness Insulin dependent type 2 diabetes mellitus CHAMBERS (dyspnea on exertion) Eczema Obesity Hypertension PTSD (post-traumatic stress disorder) Depression Anxiety Polydrug abuse Surgical History History of appendectomy Family History Father Hypertension Mother No problems noted. Social History Household Members: None Housing: Homeless Housing Other:: homeless Do you presently have visiting nurse or other home services: No Alcohol intake: current Alcohol intake frequency: holidays/special occasions only Patient Tobacco Use Status: Current someday Tobacco user Tobacco use type: Cigarette Cigarettes Per Day: 2 Years Smoked: 3 e-Cigarette/Vaping Use: Never Used Second Hand Smoke Exposure: No service: No Current occupational status: unemployed Cognitive needs: No Hearing needs: No Vision needs: No Questionnaire PHQ-9 Over the last 2 weeks, how often have you been bothered by any of the following problems? 1. Little interest or pleasure in doing things: nearly every day 2. Feeling down, depressed, or hopeless: nearly every day 3. Trouble falling or staying asleep, or sleeping too much: nearly every day 4. Feeling tired or having little energy: nearly every day 5. Poor appetite or overeating: nearly every day 6. Feeling bad about yourself - or that you are a failure or have let yourself or your family down: nearly every day 7. Trouble concentrating on things, such as reading the newspaper or watching television: nearly every day 8. Moving or speaking so slowly that other people could have noticed. Or the opposite - being so fidgety or restless that you have been moving around a lot more than usual: nearly every day 9. Thoughts that you would be better off or of hurting yourself in some way: nearly every day Total score: 27 Depression Screening Interpretation: Positive (Patient is established with counselor, taking Wellbutrin) Depression Screening Follow-up: Existing condition, In treatment and New Medication prescribed Depression Screening Done: Yes Source: Developed by Drs. Jose G Isidro, Helga Bolanos, Carlin Murillo and colleagues, with an educational codey from [employer]. Thrive Questionnaire Date Thrive assessed: 01/19/25 I am a: Patient What is your living situation today?: I do not have a steady places to live I am living on the street Within the past 12 months, did the food you bought not last and you didn't have the money to get more?: Often true Within the past 12 months, did you worry whether your food would run out before you got money to buy more?: Often true Do you have trouble paying for medicines?: No Do you have trouble getting transportation to medical appointments?: Yes Do you have trouble paying your heating and electricity bill?: No Do you have trouble taking care of your child, family member or friend?: No Do you have trouble with day-to-day activities such as bathing, preparing meals, shopping, managing finances, etc.?: Yes Are you currently unemployed and looking for a job?: Yes Are you interested in more education?: Yes THRIVE Score: 4 VIANNEY-7 AMB Questionnaire VIANNEY-7 Date VIANNEY - 7 assessed: 01/19/25 Source: Developed by Drs. Jose G Isidro, Helga Bolanos, Carlin Murillo and colleagues, with an educational codey from [employer]. Review of Systems Const All systems reviewed & are unremarkable except as noted in HPI and below Eyes Reports no additional complaints ENT Reports no additional complaints Card Reports no additional complaints Resp Reports no additional complaints GI Reports no additional complaints Reports no additional complaints Physical exam (Primary Care) Vital Signs: Last Vital Signs Temp 97.7 F 07/17/25 09:47 Pulse 79 07/17/25 09:47 Resp 19 07/17/25 09:47 BP 124/78 07/17/25 09:47 Pulse Ox 96 07/17/25 09:47 Oxygen Delivery Method Room Air 07/17/25 09:47 BMI result Body Mass Index 42.6 Tobacco/Smoking Status: Tobacco use Status Tobacco use date assessed 07/17/25 07/17/25 09:52 Patient Tobacco Use Status Current someday Tobacco 07/17/25 09:48 Tobacco use type Cigarette 07/17/25 09:48 e-Cigarette/Vaping Use Never Used 07/17/25 09:48 PHQ-9: PHQ-9 Score PHQ-9: Total score 27 07/17/25 09:52 Depression Screening Interpretation: Positive (Patient is established with counselor, taking Wellbutrin) Depression Screening Follow-up: Existing condition, In treatment and New Medication prescribed Thrive Assessment: Date of Thrive Assessment Date Thrive assessed 01/19/25 07/17/25 09:48 Const General: no acute distress HENMT Head: Yes normal to inspection Throat: Yes posterior oropharynx normal Eyes General: appearance normal, both eyes and all related structures Resp Effort & Inspection: normal respiratory effort Auscultation: clear to auscultation bilaterally Cardio Rhythm: regular rhythm Heart sounds: S1 normal heart sound present and S2 normal heart sound present GI Inspection: Yes normal to inspection Palpation (GI): Soft to palpation Percussion: Yes normal to percussion Auscultation: normal bowel sounds Coding Level of Care Code Est Pt Level 4 (95369) Diagnoses Insulin dependent type 2 diabetes mellitus E11.9; Z79.4 Hypertension, unspecified type I10 Hypertension type: unspecified PTSD (post-traumatic stress disorder) F43.10 Asthma J45.909 Testicle pain N50.819 Assessment & Plan Assessment & Plan (1) Insulin dependent type 2 diabetes mellitus: Code(s): E11.9 - Type 2 diabetes mellitus without complications; Z79.4 - computer terminal operator (current) use of insulin Category: Medical Plan: ADA diet increase physical activity weight loss discussed with the patient continue current medications follow-up in 1 month with a fasting labs before. patient will start using Dexcom sensor to improve glycemic control and detect hypoglycemia (2) Hypertension: Code(s): I10 - Essential (primary) hypertension Category: Medical Qualifiers: Hypertension type: unspecified Qualified Code(s): I10 - Essential (primary) hypertension Plan: Continue current medications (3) PTSD (post-traumatic stress disorder): [facility] Code(s): F43.10 - Post-traumatic stress disorder, unspecified Category: Medical Plan: Continue Wellbutrin gabapentin follow-up with counselor and psychiatrist (4) Asthma: Code(s): J45.909 - Unspecified asthma, uncomplicated Category: Medical Plan: Start Breo Ellipta 100 mcg, continue antihistamine and albuterol as needed (5) Testicle pain: Code(s): N50.819 - Testicular pain, unspecified Category: Medical Plan: Obtain scrotum US Orders: Orders US scrotum Today N50.819 - Testicular pain, unspecified Complete Blood Count Auto Diff 1 Month E11.9 - Type 2 diabetes mellitus without complications, E66.9 - Obesity, unspecified, Z79.4 - computer terminal operator (current) use of insulin Microalbumin, Random (w Creat) 1 Month E11.9 - Type 2 diabetes mellitus without complications, E66.9 - Obesity, unspecified, Z79.4 - detention (current) use of insulin Comprehensive [place]. Panel Fast 1 Month E11.9 - Type 2 diabetes mellitus without complications, E66.9 - Obesity, unspecified, Z79.4 - computer terminal operator (current) use of insulin Hemoglobin A1c 1 Month E11.9 - Type 2 diabetes mellitus without complications, E66.9 - Obesity, unspecified, Z79.4 - computer terminal operator (current) use of insulin Lipid Panel 1 Month E11.9 - Type 2 diabetes mellitus without complications, E66.9 - Obesity, unspecified, Z79.4 - detention (current) use of insulin UA w Microscopic 1 Month E11.9 - Type 2 diabetes mellitus without complications, E66.9 - Obesity, unspecified, Z79.4 - computer terminal operator (current) use of insulin Medications: New fluticasone furoate-vilanterol 100-25 mcg/dose (Breo Ellipta) 1 inh inhalation DAILY 60 ea 4RF Refilled blood sugar diagnostic (FreeStyle Lite Strips) Test blood sugar four times per day 300 ea 3RF E11.9 - Type 2 diabetes mellitus without complications gabapentin 300 mg PO BEDTIME 90 caps 3RF Dexcom G7 Plug Overwrap Machine Tender (blood-glucose,ticket printer and tagger,cont) As directed 1 ea 4RF NS Dexcom G7 Sensor (blood-glucose sensor) As directed 3 ea 5RF NS Discontinued prednisone Discontinued Reason: Doctor's Order 20 mg PO DAILY 5 tabs 0RF
== END 2025-07-17 10:42 | disposition home or self-care (01) ==
LOC: HO.HMCC 09:46
PROVIDERS: PCP Internal Medicine; Visit Provider Internal Medicine
DX: E11.9 Type 2 diabetes mellitus without complications (principal); Z79.4 Long term (current) use of insulin; I10 Essential (primary) hypertension; F43.10 Post-traumatic stress disorder, unspecified; J45.909 Unspecified asthma, uncomplicated; N50.819 Testicular pain, unspecified

== ENCOUNTER → 2025-07-17 09:45 | Outpatient (BNVA) | payer OTHER, SELFPAY | PROVIDERS: PCP Internal Medicine; Visit Provider Internal Medicine | DX: E11.9 Type 2 diabetes mellitus without complications (principal); I10 Essential (primary) hypertension; F43.10 Post-traumatic stress disorder, unspecified; J45.909 Unspecified asthma, uncomplicated; N50.812 Left testicular pain; Z79.4 Long term (current) use of insulin; Z59.00 Homelessness unspecified; Z13.31 Encounter for screening for depression | CPT/HCPCS: 99212 ==

== ENCOUNTER 2025-07-18 12:41 | Outpatient (REF) | payer OTHER, SELFPAY ==
--- NOTE | ~2025-07-18 | US_ITS ---
EXAMINATION: US SCROTUM HISTORY: N50.819 - Testicular pain, unspecified. COMPARISON: Previous scrotal ultrasound exam December [address] of the abdomen and pelvis September 2024 FINDINGS: Real-time grayscale ultrasound imaging of the scrotum was performed. RIGHT TESTICLE: The right testis measures 4.5 x 2 x 3.2 cm and demonstrates normal homogeneous echotexture. No masses are seen. The right testis demonstrates normal color Doppler flow. RIGHT EPIDIDYMIS: Normal in size, shape, and vascularity. LEFT TESTICLE: The left testis measures 4.7 x 2.3 x 3 cm and demonstrates normal homogeneous echotexture. No masses are seen. The left testis demonstrates normal color Doppler flow. LEFT EPIDIDYMIS: Small cyst in the tail measuring 6 x 9 x 7 mm. VARICOCELE: None. HYDROCELE: No significant hydrocele is seen. OTHER COMMENTS: Question small right inguinal hernia. US/US scrotum IMPRESSION: Normal appearing testicles. Small cyst in the left epididymal tail measuring 6 x 9 x 7 mm. This is new from December 2018 exam. Question small right inguinal hernia. Electronically signed by: Kathy Buenrostro MD 07/18/2025 02:01 PM EDT
--- OUTSIDE RECORDS SUMMARY | 2025-07-18 16:12 | XMS_ITS | Data Portability ---
Author Organization JANEY Chaudhry s, [address] Address [address] [place] [address] Care Team Providers Care Hot Air Furnace Installer And Repairer Name Role Phone [email or web address] Primary Care Provider Assessment No assessment recorded. Plan of Treatment Reminders Order Date Submit Date Provider Last Modified By Organization Details Last Modified Time Details Appointments None recorded. Lab glucose, fingerstick , blood 2022 023 [email or web address] shanique conde, [address] [place] [address], [id number], 3 11:12:53 Referral None recorded. Procedures None recorded. Surgeries None recorded. Imaging electrocard iogram 2022 023 [email or web address] 9 shanique conde, [address] [place] [address], [id number], 3 12:23:49 XR, chest, 2 view 2022 023 [email or web address] 9 [facility], [address] [place] [address], [address], 3 12:23:49 Medication Orders albuterol sulfate HFA 90 mcg/actuati on aerosol inhaler 2022 023 [facility] #[id number], [address] [facility] [place], [address], 3 12:18:56 Flovent HFA 110 mcg/actuati on aerosol inhaler 2022 023 [id number], [address] [facility] [place], [address], 12:18:56 venlafaxine ER 75 mg capsule,ext ended release [address] [facility] [place]armacy #[id number], [address] [facility] [place], [address], 12:22:27 gabapentin 100 [address] capsule [address] [facility] [place]acy #[id number], [address] [facility] [place], [address], 12:18:56 Patient TargetsNo targets recorded. Patient InstructionsNo instructions recorded. Reason for Referral None Reported. Results Created Date Observation Date Name Description Value Unit Range Abnormal Flag Note LastModifiedBy Organization Detail LastModifiedTime 04/12/2004/12/2023 gluco , bandare rstic k, blood blood sugar - non fasting mg/dL 80-140 = normal Not Available [facility] [address] [place] [address] [place], [address], 04/12/2023 10:54:44 04/12/2004/12/2023 gluco bandar hooke rstic k, blood blood sugar - fasting 102 mg/dL 80-125 = normal Not Available shanique [address] [place], [address], 04/12/2023 10:54:44 04/12/20 23 04/12/2023 elect kassandra golden am No observ ation record ed. [place] shanique [address] [place], [address], 04/12/2023 11:13:31 04/12/20 23 04/12/2023 XR, chest , 2 view No observ ation record ed. [email or web address] [facility] [address] [facility] [place], [place], [address], 04/12/2023 12:12:34 Result Notes None recorded. Problems Name Problem SNOMED Code Status Onset Date Resolution Date Notes Provider Name and Address Organization Details Recorded Time Hypertensive disorder 93012539 Active 2022 MALOUJessica SILVA null, [place] - [facility] 3 10:46:32 Asthma 230993895 Active 2022 MALOU SHIRA null, PA - [facility] 3 10:46:39 Diabetes mellitus 96481272 Active 2022 MALOU SHIRA null, PA - [facility] 3 10:46:44 Anxiety 62705067 Active 2022 MALOU SHIRA null, PA - [...] Name and Address Organization Details Recorded Time 070874 Product containin g penicilli n (product) medicatio n hives Not available Not available 04/12/2023 00268 8001 SNOMED MALOU DÍAZAU null, PA - [...] height Body mass index (BMI) Body weight Pain severity - 0-10 verbal numeric rating [Score] - Reported Oxygen saturation Oxygen saturation in Arterial blood by Pulse oximetry Heart rate Respiratory rate Body temperature Systolic And Diastolic Systolic And Diastolic Provider Name and Address Organization Details Last Updated DateTime 190.5 cm 34.5 kg/m2 878831. 49 g 8 97 % 97 % 84 /min 18 /min 97.9 [degF] 167/92 mm[Hg] 138/86 mm[Hg] MALOU SILVA PA - [facility] 12:12:55 Social History Question Answer Notes LastModified by [facility] Details LastModified Time Tobacco Smoking Status Current Every Day Smoker MALOU turner PA - [facility] 04/12/2023 10:48:11 How Much Tobacco Do You Smoke? 0.25 PPD Information not available 04/12/2023 Have You Recently Traveled Abroad? No Information not available 04/12/2023 Sex: Unknown Functional Status Question Answer Note LastModified by [employer] ion Details LastModified Time Do you use [...] Diagnosis SNOMED-CT Code Diagnosis ICD10 Code Diagnosis IMO Codes Diagnosis Note [id number] [place] [address] [address] 04/12/2023 10:32:46 04/12/2023 12:23:49 Chest pain 89328102 R07.9 atypical CP completely resolved at this timeVSSEKG /CXR and PE normalSx more c/w chest tightness 2/2 asthma he has f/u with his PCP next weekrecomm end smoking cessationc /w lisinopril Discussed concerning red flags with patient and reasons to follow up in the Emergency Department urgently. Patient expressed understand ing of and agreement with the plan as outlined above. Asthma 253253046 J45.90 9 RX ICS and albuterol rescue prn PE, VS and CXR normal he has f/u with his PCP next weekrecomm end smoking cessation Diabetic p eripheral neuropathy 144994126 E11.40 trial low dose gabapentin he has f/u with PCP nest week - recommend titration as needed he denies known CKD Reviewed with patient potential adverse side effects of the medication .Discussed concerning red flags with patient and reasons to follow up in the Emergency Department urgently. Generalize d anxiety disorder [id number] F41.1 no SI/HIhas therapist and PCPwill RF [...] Henry Member ID Guarantor Name 04/13/2023 1 [facility] (MEDICAID HMO) [facility] Karri Vivar [id number] Karri Vivar 04/13/2023 2 [place] [facility] Karri Vivar [id number] Karrimodesto Vivar Notes Date Note Type Note Provider Name and Address Organization Details Recorded Time 04/12/2023 text/html Shortness of BreathReported by [id number] yo male c/o 1 d chest pressure and tightness+ SOB+ productive cough currently homelessran out of his meds+ h/o DM, asthma, HTNsmoker no f/c/n/vNo wheezeNo congestionNo ear painNo sore throatNo Abdominal painNp diarrheaNo myalgiaNo fatigueNo rashNo HANo dizzinessNo recent travelNo known sick contactsROS as noted in the HPI Papo Rubio DO [address] [place], [address], PA - [facility] 04/12/2023 12:22:49
== END 2025-07-18 12:42 | disposition home or self-care (01) ==
LOC: HO.HMGCX 12:41
PROVIDERS: PCP Internal Medicine; Visit Provider Internal Medicine
DX: N50.819 Testicular pain, unspecified (principal)
CPT/HCPCS: 76870

== ENCOUNTER → 2025-07-18 12:51 | Outpatient (BNV) | payer OTHER, SELFPAY | PROVIDERS: PCP Internal Medicine; Visit Provider Radiology Diagnostic Radiology | DX: N50.3 Cyst of epididymis (principal) | CPT/HCPCS: 76870 ==

== ENCOUNTER 2025-08-15 08:07 | Outpatient (REF) | payer OTHER, SELFPAY ==
[2025-08-15 10:33] LABS: MANUAL DIFF FLAG NO
[2025-08-15 10:39] LABS: Hematocrit 46.8 % (42.0-52.0); Hemoglobin 15.5 g/dl (14.0-18.0); Imm Gran Abs Auto 0.16 X10*3/uL (0.00-0.03); Imm Gran Pct Auto 1.5 % (0.0-0.4); Lymphocytes Absolute Auto 2.8 X10*3/uL (1.2-4.9); Mean Corpuscular HGB Conc 33.1 g/dl (31.0-36.0); Mean Corpuscular Hemoglobin 29.1 pg (27.0-33.0); Mean Corpuscular Volume 88.0 fL (80.0-98.0); NRBC Abs Auto 0.000 X10*3/uL (0.0-0.012); NRBC Pct Auto 0.0 /100WBC (0.0-0.2); Platelet Count 277 X10*3/uL (160-400); Red Blood Count 5.32 X10*6/uL (4.60-5.80); White Blood Count 10.5 X10*3/uL (4.8-10.8)
[2025-08-15 11:18] LABS: Alanine Aminotransferase 80 U/L (0-40); Albumin Level 4.3 g/dL (3.5-5.0); Alkaline Phosphatase 66 U/L (39-117); Anion Gap 12 (12-20); Aspartate Amino Transferase 42 U/L (5-37); Blood Urea Nitrogen 19 mg/dL (9-16); Calcium 8.7 mg/dL (8.4-10.2); Carbon Dioxide 24 mmol/L (22-29); Chloride 106 mmol/L (96-108); Cholesterol 165 mg/dL (<200); Estimated Glomerular Filt Rate > 60; HDL Cholesterol 24 mg/dL (>40); Potassium 4.0 mmol/L (3.3-5.1); Sodium 138 mmol/L (135-145); Total Protein 7.0 g/dL (6.5-8.0); Triglycerides 295 mg/dL (<150)
== END 2025-08-15 08:08 | disposition home or self-care (01) ==
LOC: HO.HMGCLDS 08:07
PROVIDERS: PCP Internal Medicine; Visit Provider Internal Medicine
DX: E11.9 Type 2 diabetes mellitus without complications (principal); I10 Essential (primary) hypertension; E66.9 Obesity, unspecified; J45.909 Unspecified asthma, uncomplicated; R06.09 Other forms of dyspnea; F17.210 Nicotine dependence, cigarettes, uncomplicated; Z79.4 Long term (current) use of insulin; Z79.84 Long term (current) use of oral hypoglycemic drugs; Z79.85 Long-term (current) use of injectable non-insulin antidiabetic drugs; Z79.899 Other long term (current) drug therapy; Z68.41 Body mass index [BMI] 40.0-44.9, adult
CPT/HCPCS: 36415; 80053; 80061; 83036; 84443; 85025; 99212

== ENCOUNTER 2025-08-15 08:07 | Outpatient (AMB) | payer OTHER, SELFPAY ==
[2025-08-15 08:13] VITALS: BP 124/78; PULSE 79; RESP 17; O2SAT 97; BMI 42.4
--- NOTE | 2025-08-15 08:13 | A.OFFPC_ITS ---
Vital Signs 08/15/25 08:13 Height 6 ft 3 in Weight 339 lb BMI 42.4 BP 124/78 Blood Pressure Location Lt brachial Position Sitting Respiration 17 Pulse 79 Pulse Source Pulse Oximeter Pulse Oximetry (%) 97 Oxygen Delivery Method Room Air Intake Visit Reasons: 1m follow up Intake Note: Pt is here today for 1 month follow up visit on DM. Allergies amlodipine Allergy (Intermediate, Verified 08/15/25 08:14) Flushing amoxicillin Adverse Reaction (Verified 08/15/25 08:14) Unknown Medication List - Last Reconciled 08/15/25 by Tory Vaughan MD acetaminophen 650 mg (2 x 325 mg) PO Q6H PRN albuterol sulfate 90 mcg/actuation (Ventolin HFA) 2 puffs inhalation Q6H PRN 30 days bisoprolol-hydrochlorothiazide 5-6.25 mg 2 tabs PO DAILY blood sugar diagnostic (FreeStyle Lite Strips) Test blood sugar four times per day blood-glucose meter (FreeStyle Lite Meter kit) Test blood sugar once a day bupropion HCl XL (Wellbutrin XL) 150 mg PO QAM cetirizine (Zyrtec) 10 mg PO DAILY Dexcom G7 Back Gray Cloth Washer (blood-glucose,mailing specialist,cont) As directed NS Dexcom G7 Sensor (blood-glucose sensor) As directed NS docusate sodium 100 mg PO BID famotidine (Pepcid) 40 mg PO BEDTIME fluticasone furoate-vilanterol 100-25 mcg/dose (Breo Ellipta) 1 inh inhalation DAILY gabapentin 300 mg PO BEDTIME glucose (Dex4 Glucose) 4 grams PO Q15M PRN insulin glargine (Lantus Solostar U-100 Insulin) 60 units (0.6 mL) subcut QPM lancets (FreeStyle Lancets) Test blood sugar four times per day lidocaine 4% (Lidocaine Pain Relief) 1 patch See Protocol transdermal DAILY lisinopril 40 mg PO DAILY loratadine (Claritin) 10 mg PO DAILY metformin ER 500 mg PO QPM 90 days Mounjaro (tirzepatide) 2.5 mg (0.5 mL) subcut QWEEK NS pen needle, diabetic (Comfort EZ Pen [place]) As directed pen needle, diabetic (Easy Comfort Pen [place]) Administer insulin daily as directed polyethylene glycol 3350 17 grams PO DAILY Tobacco use date assessed: 08/15/25 Dental Screening Dental Screen Date: 10/21/24 HPI 1m follow up HPI Details Patient presents for the follow-up of type 2 diabetes hypertension. He reports fasting blood glucose readings around 90s and has been feeling hungry in the mornings. Patient denies hypoglycemia episodes. He has been monitoring his blood glucose 3 times a day before meals and 2 hours after with the readings between 150-180. Patient has been following ADA diet. He has been living with his father. [facility] Medical History Homelessness Insulin dependent type 2 diabetes mellitus CHAMBERS (dyspnea on exertion) Eczema Obesity Hypertension PTSD (post-traumatic stress disorder) Depression Anxiety Polydrug abuse Surgical History History of appendectomy Family History Father Hypertension Mother No problems noted. Social History Household Members: None Housing: Homeless Housing Other:: homeless Do you presently have visiting nurse or other home services: No Alcohol intake: current Alcohol intake frequency: holidays/special occasions only Patient Tobacco Use Status: Current someday Tobacco user Tobacco use type: Cigarette Cigarettes Per Day: 2 Years Smoked: 3 e-Cigarette/Vaping Use: Never Used Second Hand Smoke Exposure: No service: No Current occupational status: unemployed Cognitive needs: No Hearing needs: No Vision needs: No Questionnaire Thrive Questionnaire Date Thrive assessed: 01/19/25 I am a: Patient What is your living situation today?: I do not have a steady places to live I am living on the street Within the past 12 months, did the food you bought not last and you didn't have the money to get more?: Often true Within the past 12 months, did you worry whether your food would run out before you got money to buy more?: Often true Do you have trouble paying for medicines?: No Do you have trouble getting transportation to medical appointments?: Yes Do you have trouble paying your heating and electricity bill?: No Do you have trouble taking care of your child, family member or friend?: No Do you have trouble with day-to-day activities such as bathing, preparing meals, shopping, managing finances, etc.?: Yes Are you currently unemployed and looking for a job?: Yes Are you interested in more education?: Yes THRIVE Score: 4 VIANNEY-7 AMB Questionnaire VIANNEY-7 Date VIANNEY - 7 assessed: 01/19/25 Source: Developed by Drs. Jose G Isidro, Helga Bolanos, Carlin Murillo and colleagues, with an educational codey from [employer]. Review of Systems Const All systems reviewed & are unremarkable except as noted in HPI and below Eyes Reports no additional complaints ENT Reports no additional complaints Card Reports no additional complaints Resp Reports no additional complaints GI Reports no additional complaints Physical exam (Primary Care) Vital Signs: Last Vital Signs Pulse 79 08/15/25 08:13 Resp 17 08/15/25 08:13 BP 124/78 08/15/25 08:13 Pulse Ox 97 08/15/25 08:13 Oxygen Delivery Method Room Air 08/15/25 08:13 BMI result Body Mass Index 42.4 Tobacco/Smoking Status: Tobacco use Status Tobacco use date assessed 08/15/25 08/15/25 08:19 Patient Tobacco Use Status Current someday Tobacco 08/15/25 08:13 Tobacco use type Cigarette 08/15/25 08:13 e-Cigarette/Vaping Use Never Used 08/15/25 08:13 Thrive Assessment: Date of Thrive Assessment Date Thrive assessed 01/19/25 08/15/25 08:13 Const General: no acute distress HENMT Head: Yes normal to inspection Throat: Yes posterior oropharynx normal Neck Neck: Yes supple Resp Effort & Inspection: normal respiratory effort Auscultation: clear to auscultation bilaterally Cardio Rhythm: regular rhythm Heart sounds: S1 normal heart sound present and S2 normal heart sound present GI Inspection: Yes normal to inspection Extrem Other: Diabetic foot exam; skin is intact monofilament and vibration sensation intact bilaterally, overgrowth toenails General: Yes no clubbing, cyanosis or edema Coding Level of Care Code Est Pt Level 4 (27598) Diagnoses Hypertension, unspecified type I10 Hypertension type: unspecified Insulin dependent type 2 diabetes mellitus E11.9; Z79.4 Asthma J45.909 CHAMBERS (dyspnea on exertion) R06.09 Assessment & Plan Assessment & Plan (1) Hypertension: Code(s): I10 - Essential (primary) hypertension Category: Medical Qualifiers: Hypertension type: unspecified Qualified Code(s): I10 - Essential (primary) hypertension Plan: Continue current medications (2) Insulin dependent type 2 diabetes mellitus: Code(s): E11.9 - Type 2 diabetes mellitus without complications; Z79.4 - manager long term care (current) use of insulin Category: Medical Plan: ADA diet increase physical activity weight loss discussed with the patient. Mounjaro 2.5 mg will be added to insulin. Patient was advised for any episodes of fasting blood glucose less than 70 to decrease Lantus dose to 50 units a day follow-up in 6 weeks with a blood glucose recordings (3) Asthma: Code(s): J45.909 - Unspecified asthma, uncomplicated Category: Medical Plan: Continue Breo (4) CHAMBERS (dyspnea on exertion): Code(s): R06.09 - Other forms of dyspnea Category: Medical Plan: Echocardiogram will be rescheduled to assess ejection fraction for episodes of dyspnea on exertion Orders: Orders Hemoglobin A1c Today E11.9 - Type 2 diabetes mellitus without complications, I10 - Essential (primary) hypertension, Z79.4 - manager long term care (current) use of insulin CA echo transthoracic complete Today E11.9 - Type 2 diabetes mellitus without complications, I10 - Essential (primary) hypertension, Z79.4 - manager long term care (current) use of insulin Complete Blood Count Auto Diff Today E11.9 - Type 2 diabetes mellitus without complications, I10 - Essential (primary) hypertension, Z79.4 - manager long term care (current) use of insulin Lipid Panel Today E11.9 - Type 2 diabetes mellitus without complications, I10 - Essential (primary) hypertension, Z79.4 - manager long term care (current) use of insulin TSH reflex Free T4 Today E11.9 - Type 2 diabetes mellitus without complications, I10 - Essential (primary) hypertension, Z79.4 - [facility] (current) use of insulin Comprehensive [place]. Panel Fast Today E11.9 - Type 2 diabetes mellitus without complications, I10 - Essential (primary) hypertension, Z79.4 - manager long term care (current) use of insulin Microalbumin, Random (w Creat) Today E11.9 - Type 2 diabetes mellitus without complications, I10 - Essential (primary) hypertension, Z79.4 - manager long term care (curren t) use of insulin UA and rflx microscopic Today E11.9 - Type 2 diabetes mellitus without complications, I10 - Essential (primary) hypertension, Z79.4 - [facility] (current) use of insulin Medications: New Mounjaro (tirzepatide) 2.5 mg (0.5 mL) subcut QWEEK 2 mL 3RF NS
== END 2025-08-15 08:55 | disposition home or self-care (01) ==
LOC: HO.HMCC 08:08
PROVIDERS: PCP Internal Medicine; Visit Provider Internal Medicine
DX: I10 Essential (primary) hypertension (principal); E11.9 Type 2 diabetes mellitus without complications; Z79.4 Long term (current) use of insulin; J45.909 Unspecified asthma, uncomplicated; R06.09 Other forms of dyspnea

== ENCOUNTER 2025-09-27 08:54 | Outpatient (AMB) | payer OTHER, SELFPAY ==
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
--- OUTSIDE RECORDS SUMMARY | 2025-09-27 09:01 | XMS_ITS | Data Portability ---
Author Organization [facility], [address] Address [address] [place] [address] Care Team Providers Care Training Program Developer Name Role Phone TEDADAMQianaODALYS Primary Care Provider Assessment No assessment recorded. Plan of Treatment Reminders Order Date Submit Date Provider Last Modified By Organization Details Last Modified Time Details Appointments None recorded. Lab glucose, fingerstick , blood 2022 023 [email or web address] shanique conde, [address] [place] [address], [phone], 3 11:12:53 Referral None recorded. Procedures None recorded. Surgeries None recorded. Imaging electrocard iogram 2022 023 [email or web address] 9 shanique conde, [address] [place] [address], [address], 3 12:23:49 XR, chest, 2 view 2022 023 [email or web address] 9 [facility], [address] [place] [address], [address], 3 12:23:49 Medication Orders albuterol sulfate HFA 90 mcg/actuati on aerosol inhaler 2022 023 [id number], [address] [place], [address], 3 12:18:56 Flovent HFA 110 mcg/actuati on aerosol inhaler 2022 023 [id number], [address] [place], [address], 12:18:56 venlafaxine ER 75 mg capsule,ext ended release 24 hr 2022 023 [id number] [address] [place], [address], 12:22:27 gabapentin 100 mg capsule 2022 023 [id number] [address] [facility] [place], [address], 12:18:56 Patient TargetsNo targets recorded. Patient InstructionsNo instructions recorded. Reason for Referral None Reported. Results Created Date Observation Date Name Description Value Unit Range Abnormal Flag Note LastModifiedBy Organization Detail LastModifiedTime 04/12/2004/12/2023 gluco , bandare rstic k, blood blood sugar - non fasting mg/dL 80-140 = normal Not Available [facility] [address] [place] [address] [place], [address], 04/12/2023 10:54:44 04/12/2004/12/2023 gluco bandar hooke rstic k, blood blood sugar - fasting 102 mg/dL 80-125 = normal Not Available shanique [address] [place], [address], 04/12/2023 10:54:44 04/12/20 23 04/12/2023 elect kassandra golden am No observ ation record ed. HAYS shanique [address] [place], [address], 04/12/2023 11:13:31 04/12/20 23 04/12/2023 XR, chest , 2 view No observ ation record ed. [email or web address] [facility] [address] [facility] [place], [place], [address], 04/12/2023 12:12:34 Result Notes None recorded. Problems Name Problem SNOMED Code Status Onset Date Resolution Date Notes Provider Name and Address Organization Details Recorded Time Hypertensive disorder 50895617 Active 2022 MALOUJessica SILVA null, [place] - [facility] 3 10:46:32 Asthma 047863647 Active 2022 MALOU SHIRA null, [place] - [facility] 3 10:46:39 Diabetes mellitus 96242446 Active 2022 MALOU SHIRA null, [place] - [facility] 3 10:46:44 Anxiety 46448212 Active 2022 MALOU SHIRA null, [place] - [...] Name and Address Organization Details Recorded Time 947156 Product containin g penicilli n (product) medicatio n hives Not available Not available 04/12/2023 18469 8001 SNOMED MALOU DÍAZAU null, [place] - [...] numeric rating [Score] - Reported Oxygen saturation Heart rate Respiratory rate Body temperature Systolic And Diastolic Systolic And Diastolic Provider Name and Address Organization Details Last Updated DateTime 190.5 cm 34.5 kg/m2 584230. 49 g 8 97 % 84 /min 18 /min 97.9 [degF] 167/92 mm[Hg] 138/86 mm[Hg] MALOU SILVA PA - [facility] 12:12:55 Social History Question Answer Notes LastModified by [employer] ion Details LastModified Time Tobacco Smoking Status Current Every Day Smoker MALOU turner, [place] - [facility] 04/12/2023 10:48:11 How Much Tobacco Do You Smoke? 0.25 PPD Information not available 04/12/2023 Have You Recently Traveled Abroad? No Information not available 04/12/2023 Sex: Unknown Functional Status Question Answer Note LastModified by Organizat ion Details LastModified Time Do you use [...] Immunizations Vaccine Type Date Status Note Provider Tyson marquez and Address Organization Details Recorded Time COVID-19, [...] ICD10 Code Diagnosis IMO Codes Diagnosis [place] [id number] [address] [address] 04/12/2023 10:32:46 04/12/2023 12:23:49 Chest pain 54849967 R07.9 atypical CP completely resolved at this timeVSSEKG /CXR and PE normalSx more c/w chest tightness 2/2 asthma he has f/u with his PCP next weekrecomm end smoking cessationc /w lisinopril Discussed concerning red flags with patient and reasons to follow up in the Emergency Department urgently. Patient expressed understand ing of and agreement with the plan as outlined above. Asthma 510625655 J45.90 9 RX ICS and albuterol rescue prn PE, VS and CXR normal he has f/u with his PCP next weekrecomm end smoking cessation Diabetic p eripheral neuropathy 046422898 E11.40 trial low dose gabapentin he has f/u with PCP nest week - recommend titration as needed he denies known CKD Reviewed with patient potential adverse side effects of the medication .Discussed concerning red flags with patient and reasons to follow up in the Emergency Department urgently. Generalize d anxiety disorder 50890327 F41.1 no SI/HIhas therapist and PCPwill RF [...] Henry Member ID Guarantor Name 04/13/2023 1 [facility] NET PLAN (MEDICAID HMO) [facility] [id number] Karri Vivar 04/13/2023 2 [place] [facility] [address] Karri Vivar [id number] Karri Vivar Notes Date Note Type Note Provider Name and Address Organization Details Recorded Time 04/12/2023 text/html Shortness of BreathReported by [email or web address] yo male c/o 1 d chest pressure and tightness+ SOB+ productive cough currently homelessran out of his meds+ h/o DM, asthma, HTNsmoker no f/c/n/vNo wheezeNo congestionNo ear painNo sore throatNo Abdominal painNp diarrheaNo myalgiaNo fatigueNo rashNo HANo dizzinessNo recent travelNo known sick contactsROS as noted in the HPI Papo Rubio, [address] [place], [address], [place] - [facility] 04/12/2023 12:22:49
[2025-09-27 09:27] VITALS: BP 128/76; PULSE 83; RESP 16; O2SAT 95; BMI 40.7
== END 2025-09-27 10:42 | disposition home or self-care (01) ==
LOC: HO.HMCC 08:55
PROVIDERS: PCP Internal Medicine; Visit Provider Internal Medicine
DX: I10 Essential (primary) hypertension (principal); E11.9 Type 2 diabetes mellitus without complications; Z79.4 Long term (current) use of insulin

== ENCOUNTER → 2025-09-27 08:54 | Outpatient (BNVA) | payer OTHER, SELFPAY | PROVIDERS: PCP Internal Medicine; Visit Provider Internal Medicine | DX: I10 Essential (primary) hypertension (principal); E11.9 Type 2 diabetes mellitus without complications; Z79.4 Long term (current) use of insulin | CPT/HCPCS: 99212 ==